=== PATIENT | male | born 1935 | race Caucasian/White ===

== ENCOUNTER 2017-08-22 11:25 | Emergency (ER) | payer OTHER ==
[~2017-08-22] VITALS: Ht 170.2 cm; Wt 98.4 kg
[~2017-08-22 11:25] MED LIST: ALBU.083IS IH; ALBU90OI6 INH; AMOX875 PO; ASPI81EC PO; ATEN25 PO; ATOR10 PO; CAND32 PO; FISH OIL 1,4001 EACH PO; FLUSAL1005 IH; FLUT.05NI; FURO20; FURO20 PO; OMEP20ER PO; SIME80CH PO; TAMS.4ER PO; WARF5 PO; WARF7.5 PO
[2017-08-22] MEDS ORDERED: TORSE20 PO (14:58)
[2017-08-22] MEDS ORDERED: Cipro250 MG PO (15:53)
[2018-02-28] MEDS ORDERED: ZADITOR5 ML BOTHEYES (11:50)
[2018-02-28] MEDS ORDERED: Polytrim Eye Dr10 ML BOTHEYES (11:50)
== END 2017-08-22 16:03 | disposition home or self-care (01) ==
LOC: ER 11:25
DX: N41.9 Inflammatory disease of prostate, unspecified (principal); I10 Essential (primary) hypertension; Z88.0 Allergy status to penicillin; Z79.899 Other long term (current) drug therapy; Z79.01 Long term (current) use of anticoagulants
CPT/HCPCS: 99282

== ENCOUNTER 2017-09-20 11:35 | Inpatient (IN) | payer OTHER, SELFPAY ==
[~2017-09-20] VITALS: Ht 170.2 cm; Wt 102.5 kg
[~2017-09-20 11:35] MED LIST changes: +Cipro250 MG PO; +TORSE20 PO
[2017-09-20 12:00] LABS: Calcium, Ionized (POC) 1.18 mmol/L (1.10-1.46); Chloride (POC) 96 mmol/L (98-108); Creatinine (POC) 0.9 mg/dL (0.8-1.3); Glucose (ISTAT POC) 218 mg/dL (70-99); Hemoglobin (POC) 15.3 g/dL (13.5-17.5); Potassium (POC) 4.2 mmol/L (3.5-5.5); Sodium (POC) 139 mmol/L (135-148); Total CO2 (POC) 31 mmol/L (21-32)
[2017-09-20 12:11] LABS: Hemoglobin 15.5 g/dL (13.5-17.5); Mean Corpuscular HGB Conc 33.7 g/dL (31.5-36.5); Mean Corpuscular Volume 89 fL (80-100); Mean Platelet Volume 9.4 fL (9.1-12.4); Platelet Count 146 K/mm3 (150-400); RDW Standard Deviation 42.1 fL (35.1-46.3); Red Blood Cell Count 5.17 M/mm3 (4.30-5.90); White Blood Cell Count 6.18 K/mm3 (4.00-11.30)
[2017-09-20 12:29] LABS: Alanine Aminotransfer (ALT/SGP 41 U/L (12-78); Albumin, Blood 3.8 g/dL (3.4-5.0); Albumin/Globulin Ratio 1.1 (0.8-1.8); Alk Phos 107 U/L (50-136); Anion Gap 6 mmol/L (6-16); Aspartate Aminotrans (AST/SGOT 48 U/L (12-37); Bilirubin, Total 0.7 mg/dL (0.1-1.0); Blood Urea Nitrogen 18 mg/dL (8-24); Bun/Creatinine Ratio 19.8 (12.0-20.0); CHOL/HDL RATIO 4.7; CO2, Blood 31 mmol/L (21-32); Calcium, Blood 8.8 mg/dL (8.5-10.1); Chloride, Blood 101 mmol/L (98-108); Cholesterol 205 mg/dL (50-200); Creatinine, Blood 0.91 mg/dL (0.60-1.20); Globulin, Blood 3.5 g/dL (2.2-4.0); Glomerular Filtration Rate >60 (60-); Glucose, Blood 210 mg/dL (70-99); HDL Cholesterol 44 mg/dL (>39); LDL/HDL RATIO 2.9; Low Density Lipoprotein Chol 127 mg/dL (0-110); Magnesium, Blood 2.1 mg/dL (1.6-2.4); Potassium, Blood 4.2 mmol/L (3.5-5.5); Sodium, Blood 138 mmol/L (136-145); Total Protein, Blood 7.3 g/dL (6.4-8.2); Triglycerides 172 mg/dL (30-160); Very Low Density Lipoprot Chol 34 mg/dL (6-32)
[2017-09-20 12:59] LABS: International Normalized Ratio 3.89; Prothrombin Time Results 42.2 Sec (9.7-11.5)
[2018-02-28] MEDS ORDERED: ZADITOR5 ML BOTHEYES (11:50)
[2018-02-28] MEDS ORDERED: Polytrim Eye Dr10 ML BOTHEYES (11:50)
== END 2017-09-20 15:38 | disposition short-term general hospital (02) | DRG 281 ==
LOC: ER 11:35 → ICUW 12:14
PROVIDERS: Emergency Medicine
PROC: 4A023N7 Measurement of Cardiac Sampling and Pressure, Left Heart, Percutaneous Approach (ICD-10-PCS; principal; 2017-09-20)
PROC: B2161ZZ Fluoroscopy of Right and Left Heart using Low Osmolar Contrast (ICD-10-PCS; 2017-09-20)
PROC: B2111ZZ Fluoroscopy of Multiple Coronary Arteries using Low Osmolar Contrast (ICD-10-PCS; 2017-09-20)
DX: I25.110 Atherosclerotic heart disease of native coronary artery with unstable angina pectoris (principal); I21.09 ST elevation (STEMI) myocardial infarction involving other coronary artery of anterior wall; I48.91 Unspecified atrial fibrillation; C80.1 Malignant (primary) neoplasm, unspecified; Z79.01 Long term (current) use of anticoagulants; I10 Essential (primary) hypertension; Z88.0 Allergy status to penicillin
CPT/HCPCS: 36415; 71045; 80047; 80053; 80061; 83735; 84484; 85014; 85027; 85347; 85610; 85730; 86850; 86900; 86901; 92978; 93005; 93010; 93458; 96360; 99152; 99153; 99285; C1753; C1769; C1887; C1894; J0282; J1644; J2250; J3010; J7030; Q9967

== ENCOUNTER 2018-01-09 19:11 | Inpatient (IN) | payer OTHER, SELFPAY ==
[~2018-01-09] VITALS: Ht 172.7 cm; Wt 98.0 kg
[2018-01-09 19:57] LABS: Hematocrit 44.2 % (37.0-53.0); Hemoglobin 14.8 g/dL (13.5-17.5); Mean Corpuscular HGB Conc 33.5 g/dL (31.5-36.5); Mean Corpuscular Volume 90 fL (80-100); Mean Platelet Volume 9.8 fL (9.1-12.4); Platelet Count 122 K/mm3 (150-400); RDW Coefficient Variation 13.1 % (11.7-14.2); RDW Standard Deviation 42.7 fL (35.1-46.3); Red Blood Cell Count 4.94 M/mm3 (4.30-5.90); White Blood Cell Count 7.37 K/mm3 (4.00-11.30)
[2018-01-09 20:08] LABS: International Normalized Ratio 1.13; Prothrombin Time Results 11.8 Sec (9.7-11.5)
[2018-01-09 20:22] LABS: Alanine Aminotransfer (ALT/SGP 32 U/L (12-78); Albumin, Blood 3.7 g/dL (3.4-5.0); Alk Phos 123 U/L (50-136); Anion Gap 9 mmol/L (6-16); Aspartate Aminotrans (AST/SGOT 23 U/L (12-37); Bilirubin, Total 1.2 mg/dL (0.1-1.0); Blood Urea Nitrogen 21 mg/dL (8-24); Bun/Creatinine Ratio 26.4 (12.0-20.0); CHOL/HDL RATIO 2.7; CO2, Blood 28 mmol/L (21-32); Calcium, Blood 9.1 mg/dL (8.5-10.1); Chloride, Blood 99 mmol/L (98-108); Cholesterol 133 mg/dL (50-200); Globulin, Blood 3.7 g/dL (2.2-4.0); Glomerular Filtration Rate >60 (60-); Glucose, Blood 121 mg/dL (70-99); HDL Cholesterol 50 mg/dL (>39); LDL/HDL RATIO 1.3; Low Density Lipoprotein Chol 67 mg/dL (0-110); Magnesium, Blood 1.9 mg/dL (1.6-2.4); Sodium, Blood 136 mmol/L (136-145); Total Protein, Blood 7.4 g/dL (6.4-8.2); Triglycerides 78 mg/dL (30-160); Troponin I 0.016 ng/mL (0.000-0.040); Very Low Density Lipoprot Chol 15 mg/dL (6-32)
[2018-01-09] MEDS ORDERED: TORSE20 PO (20:38)
[2018-01-09] MEDS ORDERED: CARV6.25 PO (20:38)
[2018-01-09] MEDS ORDERED: LOSA25 PO (20:38)
[2018-01-09] MEDS ORDERED: ELIQUIS5 MG PO (20:39)
[2018-01-09] MEDS ORDERED: TAMS.4ER PO (20:59)
[2018-01-09] MEDS ORDERED: Omeprazole20 M1 PO (20:59)
[2018-01-09] MEDS ORDERED: ATOR20 PO (20:59)
[2018-01-09] MEDS ORDERED: Advair Hfa 230-12 GM (21:00)
[2018-01-09] MEDS ORDERED: Fish Oil 10001000 MG GT (21:00)
[2018-01-09] MEDS ORDERED: Advair Hfa 230-12 GM INH (21:00)
[2018-01-10 04:50] LABS: BASOPHILS ABSOLUTE AUTO 0.01 K/mm3 (0.00-0.23); BASOPHILS PERCENT AUTO 0 % (0-2); EOSINOPHILS ABSOLUTE AUTO 0.04 K/mm3 (0.00-0.68); EOSINOPHILS PERCENT AUTO 1 % (0-6); Hemoglobin 13.4 g/dL (13.5-17.5); IMMATURE GRAN ABSOLUTE AUTO 0.03 K/mm3 (0.00-0.10); IMMATURE GRAN PERCENT AUTO 0 % (0-1); LYMPHOCYTES ABSOLUTE AUTO 0.67 K/mm3 (0.84-5.20); LYMPHOCYTES PERCENT AUTO 9 % (21-46); MONOCYTES ABSOLUTE AUTO 0.86 K/mm3 (0.16-1.47); MONOCYTES PERCENT AUTO 11 % (4-13); Mean Corpuscular HGB 30.7 pg (26.0-34.0); Mean Corpuscular HGB Conc 33.5 g/dL (31.5-36.5); Mean Corpuscular Volume 92 fL (80-100); Mean Platelet Volume 9.5 fL (9.1-12.4); NEUTROPHILS ABSOLUTE AUTO 6.11 K/mm3 (1.96-9.15); NEUTROPHILS PERCENT AUTO 79 % (41-73); Platelet Count 123 K/mm3 (150-400); RDW Coefficient Variation 13.1 % (11.7-14.2); RDW Standard Deviation 43.8 fL (35.1-46.3); Red Blood Cell Count 4.37 M/mm3 (4.30-5.90); White Blood Cell Count 7.72 K/mm3 (4.00-11.30)
[2018-01-10 05:12] LABS: Anion Gap 6 mmol/L (6-16); Blood Urea Nitrogen 17 mg/dL (8-24); CO2, Blood 30 mmol/L (21-32); CPK Creatine Kinase 35 U/L (39-308); Calcium, Blood 8.6 mg/dL (8.5-10.1); Chloride, Blood 104 mmol/L (98-108); Creatinine, Blood 0.77 mg/dL (0.60-1.20); Glomerular Filtration Rate >60 (60-); Glucose, Blood 121 mg/dL (70-99); Sodium, Blood 140 mmol/L (136-145); Troponin I 0.088 ng/mL (0.000-0.040)
[2018-01-10 12:48] LABS: Troponin I 0.068 ng/mL (0.000-0.040)
[2018-01-10 20:38] LABS: Troponin I 0.064 ng/mL (0.000-0.040)
[2018-01-11 04:15] LABS: BASOPHILS ABSOLUTE AUTO 0.01 K/mm3 (0.00-0.23); BASOPHILS PERCENT AUTO 0 % (0-2); EOSINOPHILS PERCENT AUTO 1 % (0-6); Hematocrit 39.4 % (37.0-53.0); Hemoglobin 13.3 g/dL (13.5-17.5); IMMATURE GRAN ABSOLUTE AUTO 0.01 K/mm3 (0.00-0.10); IMMATURE GRAN PERCENT AUTO 0 % (0-1); LYMPHOCYTES ABSOLUTE AUTO 0.69 K/mm3 (0.84-5.20); LYMPHOCYTES PERCENT AUTO 9 % (21-46); MONOCYTES PERCENT AUTO 13 % (4-13); Mean Corpuscular HGB 30.6 pg (26.0-34.0); Mean Corpuscular HGB Conc 33.8 g/dL (31.5-36.5); Mean Corpuscular Volume 91 fL (80-100); NEUTROPHILS ABSOLUTE AUTO 5.95 K/mm3 (1.96-9.15); NEUTROPHILS PERCENT AUTO 77 % (41-73); Platelet Count 132 K/mm3 (150-400); RDW Coefficient Variation 13.1 % (11.7-14.2); RDW Standard Deviation 43.7 fL (35.1-46.3); Red Blood Cell Count 4.35 M/mm3 (4.30-5.90); White Blood Cell Count 7.76 K/mm3 (4.00-11.30)
[2018-01-11 04:47] LABS: International Normalized Ratio 1.52
[2018-01-11 04:53] LABS: Alanine Aminotransfer (ALT/SGP 31 U/L (12-78); Albumin, Blood 3.1 g/dL (3.4-5.0); Albumin/Globulin Ratio 0.8 (0.8-1.8); Alk Phos 103 U/L (50-136); Anion Gap 8 mmol/L (6-16); Aspartate Aminotrans (AST/SGOT 22 U/L (12-37); Bilirubin, Total 1.3 mg/dL (0.1-1.0); Blood Urea Nitrogen 21 mg/dL (8-24); Bun/Creatinine Ratio 27.7 (12.0-20.0); CO2, Blood 30 mmol/L (21-32); Calcium, Blood 8.9 mg/dL (8.5-10.1); Chloride, Blood 102 mmol/L (98-108); Creatinine, Blood 0.76 mg/dL (0.60-1.20); Globulin, Blood 3.8 g/dL (2.2-4.0); Glomerular Filtration Rate >60 (60-); Glucose, Blood 116 mg/dL (70-99); Potassium, Blood 3.9 mmol/L (3.5-5.5); Sodium, Blood 140 mmol/L (136-145); Total Protein, Blood 6.9 g/dL (6.4-8.2)
[2018-01-12] MEDS ORDERED: ATOR80 PO (11:03)
[2018-01-12] MEDS ORDERED: CLOP75 PO (11:05)
[2018-01-12] MEDS ORDERED: FAMO20 PO (11:05)
[2018-01-12] MEDS ORDERED: ALBU3IS INH (11:05)
[2018-01-12] MEDS ORDERED: ASPI81CH PO (11:05)
== END 2018-01-12 12:17 | disposition home or self-care (01) | DRG 247 ==
LOC: ER 19:11 → MEDS 19:57 → ICUW 19:57 → MEDS 20:01 → ICUW 22:11 → MEDS 01-11 16:00
PROVIDERS: Internal Medicine; Internal Medicine Cardiovascular Disease
PROC: 4A023N7 Measurement of Cardiac Sampling and Pressure, Left Heart, Percutaneous Approach (ICD-10-PCS; principal; 2018-01-09)
PROC: 027034Z Dilation of Coronary Artery, One Artery with Drug-eluting Intraluminal Device, Percutaneous Approach (ICD-10-PCS; 2018-01-09)
PROC: B211YZZ Fluoroscopy of Multiple Coronary Arteries using Other Contrast (ICD-10-PCS; 2018-01-09)
DX: I21.3 ST elevation (STEMI) myocardial infarction of unspecified site (principal); J44.1 Chronic obstructive pulmonary disease with (acute) exacerbation; J44.0 Chronic obstructive pulmonary disease with (acute) lower respiratory infection; I50.42 Chronic combined systolic (congestive) and diastolic (congestive) heart failure; J20.9 Acute bronchitis, unspecified; I25.10 Atherosclerotic heart disease of native coronary artery without angina pectoris; I21.09 ST elevation (STEMI) myocardial infarction involving other coronary artery of anterior wall; I11.0 Hypertensive heart disease with heart failure; K21.9 Gastro-esophageal reflux disease without esophagitis
CPT/HCPCS: 36415; 71045; 80048; 80053; 80061; 82550; 83735; 84145; 84484; 85025; 85027; 85347; 85610; 85730; 86850; 86900; 86901; 93005; 93010; 93458; 94640; 94760; 96374; 99152; 99153; 99285; C1725; C1760; C1769; C1874; C1894; C8929; C9606; J0456; J1644; J2250; J2405; J3010; J3246; J7030; J7050; Q9957; Q9967

== ENCOUNTER 2018-10-11 11:04 | Emergency (ER) | payer OTHER ==
[~2018-10-11] VITALS: Ht 172.7 cm; Wt 97.5 kg
[~2018-10-11 11:04] MED LIST changes: +ALBU3IS INH; +ASPI81CH PO; +ATOR20 PO; +ATOR80 PO; +Advair Hfa 230-12 GM; +Advair Hfa 230-12 GM INH; +CARV6.25 PO; +CLOP75 PO; +ELIQUIS5 MG PO; +FAMO20 PO; +Fish Oil 10001000 MG GT; +LOSA25 PO; +Omeprazole20 M1 PO; +Polytrim Eye Dr10 ML BOTHEYES; +ZADITOR5 ML BOTHEYES
[2018-10-11 12:03] LABS: BASOPHILS ABSOLUTE AUTO 0.01 K/mm3 (0.00-0.23); BASOPHILS PERCENT AUTO 0 % (0-2); EOSINOPHILS ABSOLUTE AUTO 0.16 K/mm3 (0.00-0.68); EOSINOPHILS PERCENT AUTO 3 % (0-6); Hematocrit 43.9 % (37.0-53.0); Hemoglobin 14.5 g/dL (13.5-17.5); IMMATURE GRAN ABSOLUTE AUTO 0.02 K/mm3 (0.00-0.10); IMMATURE GRAN PERCENT AUTO 0 % (0-1); LYMPHOCYTES PERCENT AUTO 15 % (21-46); MONOCYTES ABSOLUTE AUTO 0.48 K/mm3 (0.16-1.47); MONOCYTES PERCENT AUTO 9 % (4-13); Mean Corpuscular HGB 30.1 pg (26.0-34.0); Mean Corpuscular Volume 91 fL (80-100); Mean Platelet Volume 10.1 fL (9.1-12.4); NEUTROPHILS ABSOLUTE AUTO 4.06 K/mm3 (1.96-9.15); NEUTROPHILS PERCENT AUTO 73 % (41-73); Platelet Count 129 K/mm3 (150-400); RDW Standard Deviation 43.8 fL (35.1-46.3); Red Blood Cell Count 4.81 M/mm3 (4.30-5.90); White Blood Cell Count 5.53 K/mm3 (4.00-11.30)
[2018-10-11 12:15] LABS: International Normalized Ratio 1.03; Prothrombin Time Results 10.9 Sec (9.7-11.5)
[2018-10-11 12:33] LABS: Alanine Aminotransfer (ALT/SGP 40 U/L (12-78); Albumin, Blood 3.7 g/dL (3.4-5.0); Albumin/Globulin Ratio 1.1 (0.8-1.8); Alk Phos 115 U/L (50-136); Anion Gap 7 mmol/L (6-16); Aspartate Aminotrans (AST/SGOT 22 U/L (12-37); Bilirubin, Total 0.8 mg/dL (0.1-1.0); Blood Urea Nitrogen 26 mg/dL (8-24); Bun/Creatinine Ratio 23.4 (12.0-20.0); CO2, Blood 30 mmol/L (21-32); Calcium, Blood 8.8 mg/dL (8.5-10.1); Chloride, Blood 104 mmol/L (98-108); Creatinine, Blood 1.11 mg/dL (0.60-1.20); Globulin, Blood 3.5 g/dL (2.2-4.0); Glomerular Filtration Rate >60 (60-); Glucose, Blood 103 mg/dL (70-99); Potassium, Blood 3.9 mmol/L (3.5-5.5); Sodium, Blood 141 mmol/L (136-145); Total Protein, Blood 7.2 g/dL (6.4-8.2)
[2018-10-11 12:35] LABS: Troponin I 0.042 ng/mL (0.000-0.040)
== END 2018-10-11 13:57 | disposition home or self-care (01) ==
LOC: ER 11:04
PROVIDERS: Physician Assistant
DX: R07.89 Other chest pain (principal); I48.91 Unspecified atrial fibrillation; I10 Essential (primary) hypertension; Z88.0 Allergy status to penicillin; Z79.899 Other long term (current) drug therapy; Z79.82 Long term (current) use of aspirin
CPT/HCPCS: 36415; 71046; 80053; 83880; 84484; 85025; 85610; 93005; 93010; 99285-25

== ENCOUNTER 2019-05-01 03:58 | Inpatient (IN) | payer OTHER ==
[~2019-05-01] VITALS: Ht 172.7 cm; Wt 98.5 kg
[~2019-05-01 03:58] MED LIST changes: +Bactrim Ds Tab1 EACH PO; +CEPH500 PO; +Flonase 0.05% N16 GM; +Isosorbide Mono30 MG PO; +METO25ER PO
[2019-05-01 05:25] LABS: Alanine Aminotransfer (ALT/SGP 31 U/L (12-78); Albumin, Blood 3.3 g/dL (3.4-5.0); Albumin/Globulin Ratio 0.9 (0.8-1.8); Alk Phos 111 U/L (50-136); Anion Gap 10 mmol/L (6-16); Aspartate Aminotrans (AST/SGOT 18 U/L (12-37); Bilirubin, Total 0.8 mg/dL (0.1-1.0); Blood Urea Nitrogen 27 mg/dL (8-24); Bun/Creatinine Ratio 22.9 (12.0-20.0); CO2, Blood 26 mmol/L (21-32); Calcium, Blood 8.4 mg/dL (8.5-10.1); Chloride, Blood 103 mmol/L (98-108); Creatinine, Blood 1.18 mg/dL (0.60-1.20); Globulin, Blood 3.5 g/dL (2.2-4.0); Glomerular Filtration Rate >60 (60-); Glucose, Blood 135 mg/dL (70-99); Potassium, Blood 3.5 mmol/L (3.5-5.5); Sodium, Blood 139 mmol/L (136-145); Total Protein, Blood 6.8 g/dL (6.4-8.2); Troponin I 0.069 ng/mL (0.000-0.040)
[2019-05-01 05:37] LABS: BASOPHILS ABSOLUTE AUTO 0.01 K/mm3 (0.00-0.23); BASOPHILS PERCENT AUTO 0 % (0-2); EOSINOPHILS ABSOLUTE AUTO 0.24 K/mm3 (0.00-0.68); EOSINOPHILS PERCENT AUTO 3 % (0-6); Hematocrit 37.7 % (37.0-53.0); Hemoglobin 12.5 g/dL (13.5-17.5); IMMATURE GRAN ABSOLUTE AUTO 0.03 K/mm3 (0.00-0.10); IMMATURE GRAN PERCENT AUTO 0 % (0-1); LYMPHOCYTES ABSOLUTE AUTO 0.43 K/mm3 (0.84-5.20); LYMPHOCYTES PERCENT AUTO 6 % (21-46); MONOCYTES ABSOLUTE AUTO 0.74 K/mm3 (0.16-1.47); MONOCYTES PERCENT AUTO 10 % (4-13); Mean Corpuscular HGB 29.2 pg (26.0-34.0); Mean Corpuscular HGB Conc 33.2 g/dL (31.5-36.5); Mean Corpuscular Volume 88 fL (80-100); NEUTROPHILS ABSOLUTE AUTO 6.33 K/mm3 (1.96-9.15); NEUTROPHILS PERCENT AUTO 81 % (41-73); Platelet Count 130 K/mm3 (150-400); RDW Coefficient Variation 15.4 % (11.7-14.2); RDW Standard Deviation 49.2 fL (35.1-46.3); Red Blood Cell Count 4.28 M/mm3 (4.30-5.90); White Blood Cell Count 7.78 K/mm3 (4.00-11.30)
[2019-05-01] MEDS ORDERED: OMEP20ER PO (10:17)
[2019-05-01 13:42] LABS: Troponin I 0.636 ng/mL (0.000-0.040)
[2019-05-01 16:18] LABS: Adenovirus Not Detected (NOT DETECT); Bordetella pertussis Not Detected (NOT DETECT); Chlamydophila pneumoniae Not Detected (NOT DETECT); Coronavirus 229E Not Detected (NOT DETECT); Coronavirus HKU1 Not Detected (NOT DETECT); Coronavirus NL63 Not Detected (NOT DETECT); Coronavirus OC43 Not Detected (NOT DETECT); Human Metapneumovirus Not Detected (NOT DETECT); Human Rhinovirus/Enterovirus Detected (NOT DETECT); Influenza A Not Detected (NOT DETECT); Influenza A/2009-H1 Not Detected (NOT DETECT); Influenza A/H1 Not Detected (NOT DETECT); Influenza A/H3 Not Detected (NOT DETECT); Influenza B Not Detected (NOT DETECT); Mycoplasma pneumoniae Not Detected (NOT DETECT); Parainfluenza Virus 1 Not Detected (NOT DETECT); Parainfluenza Virus 2 Not Detected (NOT DETECT); Parainfluenza Virus 3 Not Detected (NOT DETECT); Parainfluenza Virus 4 Not Detected (NOT DETECT); Respiratory Syncytial Virus Not Detected (NOT DETECT)
--- NOTE | 2019-05-01 17:01 | NUR ---
PT AOX4 AND COOPERATIVE OF CARE. PT HAD TWO BMs UPON ARRIVAL TO FLOOR. NOTED SECOND BM WAS DIARRHEA. NOTIFIED AND ORDER ENTERED FOR GI PANEL. PT HAS BEEN UP AND DOWN TO CHAIR NEXT TO BED AND HAS DONE WELL WITH SELF TRANSFER. PT HAS HAD PRESENT ALL DAY. PT REQUESTED COMPRESSION STOCKINGS AND DR OWENS APPROVED ORDER AND STOCKING WERE PLACED. PT HAS BEEN STAYING AT 3 L OF O2 AND HAS BEEN DOING WELL WHEEZES CONTINUE THROUGHOUT. WILL CONTINUE TO MONITOR.
[2019-05-01 21:27] LABS: Troponin I 0.536 ng/mL (0.000-0.040)
[2019-05-02 04:42] LABS: BASOPHILS PERCENT AUTO 0 % (0-2); EOSINOPHILS PERCENT AUTO 0 % (0-6); Hematocrit 36.3 % (37.0-53.0); IMMATURE GRAN ABSOLUTE AUTO 0.02 K/mm3 (0.00-0.10); IMMATURE GRAN PERCENT AUTO 0 % (0-1); LYMPHOCYTES PERCENT AUTO 2 % (21-46); MONOCYTES ABSOLUTE AUTO 0.17 K/mm3 (0.16-1.47); MONOCYTES PERCENT AUTO 3 % (4-13); Mean Corpuscular HGB 29.6 pg (26.0-34.0); Mean Corpuscular HGB Conc 33.1 g/dL (31.5-36.5); Mean Corpuscular Volume 89 fL (80-100); Mean Platelet Volume 10.5 fL (9.1-12.4); NEUTROPHILS ABSOLUTE AUTO 4.86 K/mm3 (1.96-9.15); NEUTROPHILS PERCENT AUTO 94 % (41-73); Platelet Count 149 K/mm3 (150-400); RDW Coefficient Variation 14.9 % (11.7-14.2); Red Blood Cell Count 4.06 M/mm3 (4.30-5.90); White Blood Cell Count 5.15 K/mm3 (4.00-11.30)
[2019-05-02 05:20] LABS: Alanine Aminotransfer (ALT/SGP 45 U/L (12-78); Albumin, Blood 3.2 g/dL (3.4-5.0); Albumin/Globulin Ratio 0.9 (0.8-1.8); Alk Phos 149 U/L (50-136); Anion Gap 10 mmol/L (6-16); Aspartate Aminotrans (AST/SGOT 29 U/L (12-37); Bilirubin, Total 0.7 mg/dL (0.1-1.0); Blood Urea Nitrogen 32 mg/dL (8-24); Bun/Creatinine Ratio 32.3 (12.0-20.0); CO2, Blood 26 mmol/L (21-32); Calcium, Blood 8.9 mg/dL (8.5-10.1); Chloride, Blood 101 mmol/L (98-108); Creatinine, Blood 0.99 mg/dL (0.60-1.20); Globulin, Blood 3.4 g/dL (2.2-4.0); Glomerular Filtration Rate >60 (60-); Glucose, Blood 281 mg/dL (70-99); Potassium, Blood 3.7 mmol/L (3.5-5.5); Sodium, Blood 137 mmol/L (136-145); Total Protein, Blood 6.6 g/dL (6.4-8.2)
--- NOTE | 2019-05-02 06:27 | NUR ---
SHIFT SUMMARY PT A/O SBA WHEN TRANSFERRING FROM BED TO CHAIR OR TO BSC. SLEPT ON AND OFF IN RECLINER T/O NIGHT. C/O SOME ANGINA AND REQUESTED HIS ISOSORBIDE ASKED DR GONZALEZ IF HE COULD HAVE IT EARLY PER PT'S SCHEDULE LIKE HE DOES AT HOME AND OKAYED IT. 3L O2 NC. TRUPTI HOSE OFF FOR THE NIGHT. CALL LIGHT IN REACH.
[2019-05-02 07:09] LABS: Adenovirus F 40/41 Not Detected (NOT DETECT); Astrovirus Not Detected (NOT DETECT); Campylobacter Sp Not Detected (NOT DETECT); Cryptosporidium Not Detected (NOT DETECT); Cyclospora Cayetanensis Not Detected (NOT DETECT); E. Coli O157 Not Detected (NOT DETECT); Entamoeba Histolytica Not Detected (NOT DETECT); Enteroaggregative E. coli-EAEC Not Detected (NOT DETECT); Enteropathogenic E. coli-EPEC Not Detected (NOT DETECT); Enterotoxigenic E. coli-ETEC Not Detected (NOT DETECT); Giardia Lamblia Not Detected (NOT DETECT); Norovirus GI/GII Not Detected (NOT DETECT); Plesiomonas Shigelloides Not Detected (NOT DETECT); Rotavirus A Not Detected (NOT DETECT); Salmonella Sp Not Detected (NOT DETECT); Sapovirus Not Detected (NOT DETECT); Shiga Toxin-prod E. coli-STEC Not Detected (NOT DETECT); Shigella/Enteroin E. coli-EIEC Not Detected (NOT DETECT); Vibrio Cholerae Not Detected (NOT DETECT); Vibrio Sp Not Detected (NOT DETECT); Yersinia Enterocolitica Not Detected (NOT DETECT)
--- NOTE | 2019-05-02 12:06 | NUR ---
Echocardiogram completed.
--- NOTE | 2019-05-02 17:34 | NUR ---
PT AOX4 AND COOPERATIVE OF CARE. PT STATES HE IS FEELING BETTER TODAY. PT PREFERS SITTING UP IN HIS RECLINER CHAIR AND STATES HIS BREATHING IS BETTER WHEN SITTING UPRIGHT. PT HAD SHOWER TODAY AND REQUESTED TO BE SET UP IN BATHROOM AND WANTED HIS TO HELP HIM. PT WAS THEN HELPED BACK TO HIS CHAIR USING A FRONT WHEEL WALKER. PT STANDS AND USES URININAL ON HIS OWN. PT CALLS APPROPRIATELY. WILL CONTINUE TO MONITOR.
[2019-05-03 03:59] LABS: BASOPHILS ABSOLUTE AUTO 0.01 K/mm3 (0.00-0.23); BASOPHILS PERCENT AUTO 0 % (0-2); EOSINOPHILS ABSOLUTE AUTO 0.02 K/mm3 (0.00-0.68); EOSINOPHILS PERCENT AUTO 0 % (0-6); Hematocrit 38.1 % (37.0-53.0); Hemoglobin 12.7 g/dL (13.5-17.5); IMMATURE GRAN ABSOLUTE AUTO 0.03 K/mm3 (0.00-0.10); IMMATURE GRAN PERCENT AUTO 0 % (0-1); LYMPHOCYTES ABSOLUTE AUTO 0.26 K/mm3 (0.84-5.20); LYMPHOCYTES PERCENT AUTO 3 % (21-46); MONOCYTES ABSOLUTE AUTO 0.69 K/mm3 (0.16-1.47); MONOCYTES PERCENT AUTO 7 % (4-13); Mean Corpuscular HGB 30.1 pg (26.0-34.0); Mean Corpuscular HGB Conc 33.3 g/dL (31.5-36.5); Mean Corpuscular Volume 90 fL (80-100); Mean Platelet Volume 10.1 fL (9.1-12.4); NEUTROPHILS ABSOLUTE AUTO 8.66 K/mm3 (1.96-9.15); NEUTROPHILS PERCENT AUTO 90 % (41-73); Platelet Count 173 K/mm3 (150-400); RDW Coefficient Variation 15.3 % (11.7-14.2); RDW Standard Deviation 51.1 fL (35.1-46.3); Red Blood Cell Count 4.22 M/mm3 (4.30-5.90); White Blood Cell Count 9.67 K/mm3 (4.00-11.30)
--- NOTE | 2019-05-03 05:16 | NUR ---
SHIFT SUMMARY: PT IS ALERT AND ORIENTED. PT IS CALM AND COOPERATIVE WITH CARE. PT CALLS APPROPRIATELY. PT IS A STANDBY ASSIST. PT REPORTS INTERMITTENT SOB, REQUESTED HIS NASAL SPRAY EARLY, GIVEN, O2 @ 2 L VIA NC. PT DENIES PAIN, NAUSEA, AND VOMITING. PT REPORTS THAT HE TAKES ISOSORBIDE @ 0500, GIVEN EARLY. PT SLEPT INTERMITTENTLY THROUGHOUT THE NIGHT. POSSIBLE DISCHARGE TODAY. NO ACUTE CHANGES OR COMPLICATIONS. WILL CONTINUE TO MONITOR.
--- NOTE | 2019-05-03 16:56 | NUR ---
SHIFT SUMMARY NO ACUTE CHANGES. PATIENT DENIES PAIN, NAUSEA, AND SHORTNESS OF BREATH. PATIENT UP INDEPENDENT TO BSC AND SBA IN THE ROOM. PATIENT STATES HE IS FEELING BETTER. AT BEDSIDE. CALL LIGHT IN REACH.
--- NOTE | 2019-05-04 06:34 | NUR ---
[place] but a+o, great database management system specialist, marquise hose removed, used urinal on own, called after use, callight in reach, saline locked, room air for majority of shift, took nc off and replaced as he wanted/felt appropriate
--- NOTE | 2019-05-04 16:35 | NUR ---
SHIFT SUMMARY NO ACUTE CHANGES. PATIENT DENIES PAIN, NAUSEA, AND SHORTNESS OF BREATH. PATIENT ONLY WEARING 2L NC WITH ACTIVITY, OTHERWISE ON ROOM AIR. PATIENT UP TO BSC INDEPENDENTLY. AT BEDSIDE. POSSIBLE DISCHARGE TOMORROW. CALL LIGHT IN REACH.
--- NOTE | 2019-05-04 23:03 | NUR ---
requested increase in morning medication from 60 to the 90 pt states he takes at home, hospitalist declined to change another dr's orders and encouraged the pt to discuss it with his assigned caregiver during the day
[2019-05-05 05:44] LABS: Anion Gap 7 mmol/L (6-16); Blood Urea Nitrogen 38 mg/dL (8-24); Bun/Creatinine Ratio 47.7 (12.0-20.0); CO2, Blood 31 mmol/L (21-32); Chloride, Blood 104 mmol/L (98-108); Glomerular Filtration Rate >60 (60-); Glucose, Blood 156 mg/dL (70-99); Potassium, Blood 3.6 mmol/L (3.5-5.5); Sodium, Blood 142 mmol/L (136-145)
--- NOTE | 2019-05-05 06:25 | NUR ---
a+o, platinum, saline locked, rm air, slept in [facility] again last night, will share bsr with pt and day staff
--- NOTE | 2019-05-05 18:01 | NUR ---
SHIFT SUMMARY. A&OX4, INDEPENDENT IN ROOM, PT IS AWARE OF LIMIATIONS, NO SAFETY CONCERNS. PT DENIES PAIN, N/V. GOOD MEAL INTAKE. PT REPORTS MILD SOB WITH EXERTION. NO NEW PROBLEMS OR CONCERNS.
[2019-05-06 05:22] LABS: Albumin, Blood 3.6 g/dL (3.4-5.0); Anion Gap 7 mmol/L (6-16); Blood Urea Nitrogen 39 mg/dL (8-24); CO2, Blood 30 mmol/L (21-32); Calcium, Blood 9.3 mg/dL (8.5-10.1); Chloride, Blood 104 mmol/L (98-108); Creatinine, Blood 0.87 mg/dL (0.60-1.20); Glomerular Filtration Rate >60 (60-); Glucose, Blood 152 mg/dL (70-99); Phosphorus, Blood 3.7 mg/dL (2.5-4.9); Potassium, Blood 3.9 mmol/L (3.5-5.5); Sodium, Blood 141 mmol/L (136-145)
--- NOTE | 2019-05-06 06:37 | NUR ---
a+o, call light in reach, night in chair, [place], bsr will be shared with day staff and pt, rm air, continues to improve
[2019-05-06] MEDS ORDERED: PRED5 (13:28)
--- NOTE | 2019-05-06 14:54 | NUR ---
1452 PT DISCHARGED HOME VIA PERSONAL VEHICLE ACOMPANIED AND DRIVEN BY AND DAUGHTER. PT ESCORTED TO FACILITY ENTRANCE VIA W/C BY LEATHER STAMPER. IV REMOVED. D/C PAPERWORK REVIEWED WITH PT AND COPY PROVIDED, PT AND FAMILY ACKNOWLEDGED UNDERSTANDING. FLUTTER VALVE SUPPLIED TO PT PER DR. GALVEZ REQUEST. NO NEW CHANGES OR CONCERNS. LUNGS CLEAR THIS AM, SIGNIFICANTLY IMPROVED COMPARED TO YESTERDAY.
--- NOTE | 2019-05-06 15:05 | NUR ---
PREDNISONE CALLED IN TO THE PHARMACIST AT [facility].
== END 2019-05-06 14:53 | disposition home or self-care (01) | DRG 280 ==
LOC: ER 03:58 → MEDS 06:36 → ENPENDDIS 05-06 11:06 → MEDS 05-06 14:53
PROVIDERS: Emergency Medicine; Internal Medicine; ADMIT Internal Medicine
DX: I11.0 Hypertensive heart disease with heart failure (principal); J96.01 Acute respiratory failure with hypoxia; I21.A1 Myocardial infarction type 2; J44.1 Chronic obstructive pulmonary disease with (acute) exacerbation; L03.116 Cellulitis of left lower limb; I25.10 Atherosclerotic heart disease of native coronary artery without angina pectoris; I50.43 Acute on chronic combined systolic (congestive) and diastolic (congestive) heart failure; I25.5 Ischemic cardiomyopathy; I48.2 Chronic atrial fibrillation; E78.5 Hyperlipidemia, unspecified; Z79.82 Long term (current) use of aspirin; Z79.02 Long term (current) use of antithrombotics/antiplatelets; I87.8 Other specified disorders of veins; I27.20 Pulmonary hypertension, unspecified
CPT/HCPCS: 0097U; 0099U; 36415; 71045; 71046; 80048; 80053; 80069; 82550; 82803; 82947; 83605; 83880; 84145; 84484; 85025; 93005; 93010; 93308; 93321; 93971; 94640; 94644; 94664; 94760; 96361; 96365; 96375; 97162; 97166; 97530; 98960; 99284-25; 99285-25; J0696; J1940; J1956; J2930; J7030; J7512

== ENCOUNTER → 2019-08-10 | Outpatient (CLI) | payer OTHER ==
[~2019-08-10] MED LIST changes: +PRED5
== END | disposition home or self-care (01) ==
LOC: PLD 07:35 → LAB SHORT 07:35
DX: D04.39 Carcinoma in situ of skin of other parts of face (principal)
CPT/HCPCS: 88305

== ENCOUNTER → 2019-10-31 | Outpatient (CLI) | payer OTHER | END | disposition home or self-care (01) | LOC: LAB SHORT 15:01 → LAB 15:01 | DX: L57.0 Actinic keratosis (principal) | CPT/HCPCS: 87070; 87205; 88305 ==

== ENCOUNTER → 2019-12-19 | Outpatient (CLI) | payer OTHER | END | disposition home or self-care (01) | LOC: LAB SHORT 18:39 → LAB 18:39 | DX: L08.0 Pyoderma (principal) | CPT/HCPCS: 87070; 87205 ==

== ENCOUNTER → 2020-07-30 | Outpatient (CLI) | payer OTHER | END | disposition home or self-care (01) | LOC: LAB 11:30 | DX: L03.116 Cellulitis of left lower limb (principal) | CPT/HCPCS: 87070; 87106; 87205 ==

== ENCOUNTER → 2020-09-24 | Outpatient (CLI) | payer OTHER | END | disposition home or self-care (01) | LOC: PLD 10:20 → LAB SHORT 10:20 | DX: L03.116 Cellulitis of left lower limb (principal) | CPT/HCPCS: 87070; 87077; 87186; 87205 ==

== ENCOUNTER → 2020-10-29 | Outpatient (CLI) | payer OTHER | END | disposition home or self-care (01) | LOC: LAB 11:00 → LAB SHORT 11:00 | DX: L03.116 Cellulitis of left lower limb (principal) | CPT/HCPCS: 87070; 87205 ==

== ENCOUNTER → 2021-06-26 | Outpatient (CLI) | payer OTHER | END | disposition home or self-care (01) | LOC: LAB 14:42 → LAB SHORT 14:42 | DX: L03.116 Cellulitis of left lower limb (principal) | CPT/HCPCS: 87070; 87205 ==

== ENCOUNTER 2021-07-25 17:07 | Inpatient (IN) | payer OTHER ==
[~2021-07-25] VITALS: Ht 170.2 cm; Wt 65.6 kg
[~2021-07-25 17:07] MED LIST changes: -ALBU3IS INH; -ASPI81CH PO; -ATOR80 PO; -Advair Hfa 230-12 GM INH; -Flonase 0.05% N16 GM; -Isosorbide Mono30 MG PO; -METO25ER PO
[2021-07-25 18:01] LABS: Source, Urine Clean Catch
[2021-07-25 18:04] LABS: Appearance, Urine Clear (Clear); Bilirubin, Urine Neg (Neg); Blood, Urine 5+ (Neg); Color, Urine Yellow (P-Yellow); Glucose Qualitative, Urine Neg (Neg); Ketones, Urine Neg (Neg); Leukocyte Esterase, Urine Neg (Neg); Nitrite, Urine Neg (Neg); Protein, Urine Neg (Neg); Urobilinogen, Urine NORM (Normal)
[2021-07-25 18:12] LABS: Bacteria Rare /hpf; Red Blood Cells, Urine 0-2 /hpf (0-2); Squamous Epithelial Cells Few /hpf (Few); White Blood Cells, Urine 0-2 /hpf (0-5)
[2021-07-25 18:12] LABS: BASOPHILS ABSOLUTE AUTO 0.02 K/mm3 (0.00-0.23); BASOPHILS PERCENT AUTO 0 % (0-2); EOSINOPHILS ABSOLUTE AUTO 0.26 K/mm3 (0.00-0.68); EOSINOPHILS PERCENT AUTO 3 % (0-6); Hematocrit 38.6 % (37.0-53.0); IMMATURE GRAN ABSOLUTE AUTO 0.04 K/mm3 (0.00-0.10); IMMATURE GRAN PERCENT AUTO 0 % (0-1); LYMPHOCYTES ABSOLUTE AUTO 0.83 K/mm3 (0.84-5.20); LYMPHOCYTES PERCENT AUTO 8 % (21-46); MONOCYTES ABSOLUTE AUTO 0.79 K/mm3 (0.16-1.47); MONOCYTES PERCENT AUTO 8 % (4-13); Mean Corpuscular HGB 29.7 pg (26.0-34.0); Mean Corpuscular HGB Conc 33.7 g/dL (31.5-36.5); Mean Corpuscular Volume 88 fL (80-100); NEUTROPHILS ABSOLUTE AUTO 8.01 K/mm3 (1.96-9.15); NEUTROPHILS PERCENT AUTO 81 % (41-73); RDW Coefficient Variation 14.3 % (11.7-14.2); RDW Standard Deviation 46.3 fL (35.1-46.3); Red Blood Cell Count 4.37 M/mm3 (4.30-5.90); White Blood Cell Count 9.95 K/mm3 (4.00-11.30)
[2021-07-25 18:15] LABS: Platelet Count 212 K/mm3 (150-400)
[2021-07-25 18:23] LABS: Base Excess Venous -9.4 mmol/L; Bicarbonate Venous 16.7 mmol/L (24.0-30.0); PCO2 Venous 39.3 mmHg (38-42); PO2 Venous 33.7 mmHg (38-42)
[2021-07-25 18:23] LABS: International Normalized Ratio 1.23; Prothrombin Time Results 12.7 Sec (9.7-11.5)
[2021-07-25 18:24] LABS: pH Blood Venous 7.26 (7.34-7.37)
[2021-07-25 18:31] LABS: Albumin/Globulin Ratio 0.4 (0.8-1.8); Bilirubin, Total 0.7 mg/dL (0.1-1.0); Calcium, Blood 8.7 mg/dL (8.5-10.1); Creatinine, Blood 3.58 mg/dL (0.60-1.20); Globulin, Blood 5.4 g/dL (2.2-4.0); Potassium, Blood 4.7 mmol/L (3.5-5.5); Total Protein, Blood 7.4 g/dL (6.4-8.2); Troponin I 0.044 ng/mL (0.000-0.040)
[2021-07-25 19:08] LABS: Influenza A, PCR NEGATIVE (NEGATIVE); Influenza B, PCR NEGATIVE (NEGATIVE); Resp Syncytial Virus, PCR NEGATIVE (NEGATIVE); SARS-Cov-2 (COVID-19) PCR, MMC NEGATIVE (NEGATIVE)
--- NOTE | 2021-07-25 22:24 | NUR ---
ADMISSION; PATIENT IS RECIEVED FROM ER, VERY [place] BUT A&OX3. DOES NOT KLNOW ALL MEDICATIONS AND DOSES, UNABLE TO COMPLETE MED REC. HR IS ELEVATED AT 115, ARTIFACT OBSERVED, RYTHM UN NON AT THIS TIME. PATIENT IS ORIENTED TO THE ROOM AND CALL CLARKE. BED ALARM IS ON.
[2021-07-26 05:16] LABS: BASOPHILS PERCENT AUTO 0 % (0-2); EOSINOPHILS PERCENT AUTO 8 % (0-6); Hematocrit 33.4 % (37.0-53.0); Hemoglobin 11.1 g/dL (13.5-17.5); IMMATURE GRAN ABSOLUTE AUTO 0.03 K/mm3 (0.00-0.10); IMMATURE GRAN PERCENT AUTO 0 % (0-1); LYMPHOCYTES ABSOLUTE AUTO 0.67 K/mm3 (0.84-5.20); LYMPHOCYTES PERCENT AUTO 9 % (21-46); MONOCYTES ABSOLUTE AUTO 0.66 K/mm3 (0.16-1.47); MONOCYTES PERCENT AUTO 9 % (4-13); Mean Corpuscular HGB 29.8 pg (26.0-34.0); Mean Corpuscular HGB Conc 33.2 g/dL (31.5-36.5); Mean Corpuscular Volume 90 fL (80-100); NEUTROPHILS ABSOLUTE AUTO 5.66 K/mm3 (1.96-9.15); NEUTROPHILS PERCENT AUTO 74 % (41-73); RDW Coefficient Variation 14.5 % (11.7-14.2); RDW Standard Deviation 47.1 fL (35.1-46.3); Red Blood Cell Count 3.73 M/mm3 (4.30-5.90); White Blood Cell Count 7.62 K/mm3 (4.00-11.30)
[2021-07-26 05:55] LABS: Albumin, Blood 1.7 g/dL (3.4-5.0); Anion Gap 10 mmol/L (6-16); Blood Urea Nitrogen 91 mg/dL (8-24); CO2, Blood 18 mmol/L (21-32); Calcium, Blood 8.4 mg/dL (8.5-10.1); Chloride, Blood 119 mmol/L (98-108); Creatinine, Blood 1.98 mg/dL (0.60-1.20); Glomerular Filtration Rate 32 (60-); Glucose, Blood 148 mg/dL (70-99); Magnesium, Blood 1.9 mg/dL (1.6-2.4); Phosphorus, Blood 4.2 mg/dL (2.5-4.9); Potassium, Blood 3.7 mmol/L (3.5-5.5); Sodium, Blood 147 mmol/L (136-145)
[2021-07-26 06:18] LABS: Platelet Count 192 K/mm3 (150-400)
--- NOTE | 2021-07-26 07:30 | NUR ---
SHIFT SUMMARY: PATIENT REMAINS A&O TO SELF, PLACE, TIME AND SITUATION BUT RAMBLES DURING HEALTH HX AND MED REC. GRAND DAUGHTER REPORTS NOT HELPING WITH MEDS. ONLY HELPS WITH BATHING AND ADL'S. PATIENT REPORTS NOT BEING ABLE TO AMBULATE FOR OVER 2 WEEKS AT THIS POINT. STAGE II ON COCCYX AND BILAT BUTTOCKS, MEPILEX WAS APPLIED AND PHOTO'S TAKEN. BILAT SHINS ARE ALMOST BLACK IN COLOR, PULSES ARE FAINT. SMALL OPEN AREA ON BACK OF LEFT CALF. NEW SHAWANDA WRAPS WERE APPLIED. MEDS WILL HAVE TO BE RECONCILED WITH PHARMACY, THIS WAS RELAYED IN REPORT. BED ALARM IS ON FOR SAFETY.
[2021-07-26 12:40] LABS: CHOL/HDL RATIO 2.2; Cholesterol 71 mg/dL (50-200); HDL Cholesterol 32 mg/dL (>39); LDL/HDL RATIO 0.5; Low Density Lipoprotein Chol 17 mg/dL (0-110); Sodium, Blood 145 mmol/L (136-145); Triglycerides 109 mg/dL (30-160); Very Low Density Lipoprot Chol 21 mg/dL (6-32)
--- NOTE | 2021-07-26 16:56 | NUR ---
SHIFT SUMMARY PATIENT IS ALERT AND ORIENTED X3. PATIENT IS HARD OF HEARING. PATIENT HAS BILATERAL BLACK SHINS AND LOWER EXTREMITIES WITH WEAK PULSES. PATIENT HAS A SKIN WOUND ON SACRUM WHICH WAS JUST REPLACED WITH MEPLEX DRESSING. DR REQUESTED THAT TAX COLLECTOR NOT REWRAP LEGS AND REWRAP AFTER DR SEES THEM TOMORROW MORNING. PICTURES IN FILE OF LEGS AND WOUNDS. NO ACUTE EVENTS THIS SHIFT. VITAL SIGNS REVIEWED. WILL CONTINUE TO MONTITOR UNTIL SHIFT CHANGE.
--- NOTE | 2021-07-27 04:40 | NUR ---
SHIFT SUMMARY PT IS A&0X3.FULL CODE STATUS.HARD OF HEARING. EDGAR REMAINS PATENT.NO NEW CONCERNS DURING THIS SHIFT.
[2021-07-27 06:22] LABS: Albumin, Blood 1.7 g/dL (3.4-5.0); Anion Gap 8 mmol/L (6-16); Blood Urea Nitrogen 41 mg/dL (8-24); Bun/Creatinine Ratio 40.2 (12.0-20.0); CO2, Blood 26 mmol/L (21-32); Calcium, Blood 8.2 mg/dL (8.5-10.1); Chloride, Blood 110 mmol/L (98-108); Creatinine, Blood 1.02 mg/dL (0.60-1.20); Glomerular Filtration Rate >60 (60-); Glucose, Blood 138 mg/dL (70-99); Magnesium, Blood 1.3 mg/dL (1.6-2.4); Phosphorus, Blood 2.1 mg/dL (2.5-4.9); Potassium, Blood 3.4 mmol/L (3.5-5.5); Sodium, Blood 144 mmol/L (136-145)
[2021-07-27 06:28] LABS: BASOPHILS ABSOLUTE AUTO 0.02 K/mm3 (0.00-0.23); BASOPHILS PERCENT AUTO 0 % (0-2); EOSINOPHILS ABSOLUTE AUTO 0.86 K/mm3 (0.00-0.68); EOSINOPHILS PERCENT AUTO 11 % (0-6); Hematocrit 37.5 % (37.0-53.0); Hemoglobin 12.5 g/dL (13.5-17.5); IMMATURE GRAN ABSOLUTE AUTO 0.04 K/mm3 (0.00-0.10); IMMATURE GRAN PERCENT AUTO 1 % (0-1); LYMPHOCYTES ABSOLUTE AUTO 0.82 K/mm3 (0.84-5.20); LYMPHOCYTES PERCENT AUTO 10 % (21-46); MONOCYTES ABSOLUTE AUTO 0.71 K/mm3 (0.16-1.47); MONOCYTES PERCENT AUTO 9 % (4-13); Mean Corpuscular HGB 29.2 pg (26.0-34.0); Mean Corpuscular HGB Conc 33.3 g/dL (31.5-36.5); Mean Corpuscular Volume 88 fL (80-100); NEUTROPHILS ABSOLUTE AUTO 5.74 K/mm3 (1.96-9.15); NEUTROPHILS PERCENT AUTO 70 % (41-73); RDW Coefficient Variation 14.4 % (11.7-14.2); RDW Standard Deviation 46.2 fL (35.1-46.3); Red Blood Cell Count 4.28 M/mm3 (4.30-5.90); White Blood Cell Count 8.19 K/mm3 (4.00-11.30)
[2021-07-27 06:38] LABS: Platelet Count 198 K/mm3 (150-400)
--- NOTE | 2021-07-27 14:39 | NUR ---
WOUND CARE PT HAS MEDIUM SIZE BREAK DOWN OF SKIN ON SACRUM AND IN HIS GLUTEAL FOLDS. BARRIER CREAM APPLIED GENEROUSLY. BLE IS DARK AND HAS VERY POOR CIRCULATION. HE HAS WOUNDS ON THE POSTERIOR OF HIS LEFT CALF. THOSE WERE SPRAYED WITH WOUND SPRAY CLEANED OF DRIED BLOOD AND COVERED INDIVIDUALLY WITH A MEPELEX. HIS LEFT HEEL IS ALSO COVERED WITH A HEEL PROTECTOR. WILL CONTINUE TO ADRERSS WOUND ON SACRUM WITH BRIEF CHANGES.
--- NOTE | 2021-07-27 17:26 | NUR ---
SHIFT SUMMARY PT HAS BEEN AXO 2-3 WITH PERIODS OF CONFUSION AND ANGRY OUTBURSTS. WOUNDS ON BOTTOM AND ON BLE WERE DRESSED (SEE WOUND CARE NOTE) AND PT WAS GIVEN A BED BATH. PTS FAMILY HAD A MEETING WITH PALLIATIVE CARE TODAY AND DECIDED THAT THE BEST OPTION WOULD BE TO TAKE THE PT HOME ON HOSPICE ON THURSDAY. WILL CONTINUE TO MONITOR.
--- NOTE | 2021-07-27 18:07 | NUR ---
MET TODAY WITH PT'S , DAUGHTER IN LAW, AND PATIENT. PT IS INTERESTED IN HOSPICE, AND FAMILY IS ALSO. THEIR BIGGEST OBSTACLE AT THIS POINT IS CAREGIVING, WHICH MAY ULTIMATELY CAUSE THEM TO CHOOSE ANOTHER ROUTE, LIKE ASSISTED LIVING WITH HOSPICE IN FACILITY INSTEAD OF HOME. THEY ARE PLANNING TO TALK TONIGHT A FAMILY, AND WE'LL MEET AGAIN TOMORROW DURING VISITING HOURS; POSSIBLY CHANGE PT TO COMFORT CARE PRIOR TO PT LEAVING THE HOSPITAL. WILL CLARIFY/FOLLOW UP ON THAT TOMORROW.
--- NOTE | 2021-07-28 04:03 | NUR ---
SCHIFT SUMMARY PT IS AOX2, FORGETFUL AT TIMES.VS REVIEWED . THE PLAN IS TO TAAKE THE PATIENT HOME ON HOSPICE THURSDAY. NO ACUTE CHANGE FOR THIS SHIFT . WILL CONTINUE TO MONITOR UNTIL DAY SHIFT ARRIVES.
[2021-07-28 05:18] LABS: Hematocrit 38.6 % (37.0-53.0); Hemoglobin 12.6 g/dL (13.5-17.5)
[2021-07-28 05:49] LABS: Albumin, Blood 1.7 g/dL (3.4-5.0); Anion Gap 8 mmol/L (6-16); Blood Urea Nitrogen 27 mg/dL (8-24); CO2, Blood 28 mmol/L (21-32); Calcium, Blood 8.1 mg/dL (8.5-10.1); Chloride, Blood 107 mmol/L (98-108); Creatinine, Blood 0.82 mg/dL (0.60-1.20); Glomerular Filtration Rate >60 (60-); Glucose, Blood 134 mg/dL (70-99); Magnesium, Blood 1.2 mg/dL (1.6-2.4); Phosphorus, Blood 2.3 mg/dL (2.5-4.9); Potassium, Blood 3.5 mmol/L (3.5-5.5); Sodium, Blood 143 mmol/L (136-145)
--- NOTE | 2021-07-28 16:27 | NUR ---
SHIFT SUMMARY PT RECIEVED A BED BATH TODAY AND HAD HIS WOUNDS REDRESSED. WE ARE STILL WORKING ON RESOLVING HIS MEDICATION ISSUES THE AUTHOR HAD TROUBLE GETTING AHOLD OF FAMILY MEMBERS AND THE PHARMACY THE PT USES IS CLOSED TODAY. PT IS MEANT TO BE DISCHARGING TOMORROW HOME ON HOSPICE PROVIDED THAT THE SUPPLIES ALL ARRIVE AT HIS HOME IN TIME. WILL CONTINUE TO MONITOR. PT REMAINS CONFUSED TODAY AND CONTINUES TO CALL OUT FOR HELP INSTEAD OF USING CALL LIGHT. WILL CONTINUE TO MONITOR.
--- NOTE | 2021-07-28 18:09 | NUR ---
PT'S FAMILY HAS CHOSEN [facility].
--- NOTE | 2021-07-29 04:24 | NUR ---
PT A/OX3-4. BEDBOUND. HERNÁNDEZ IN PLACE. LF. CALF HAS MEPELEX X2, SACRAL DECUB MEPELEX X1. PT HAS BLACK FEET, OP CONSULT IS IN PLACE ONCE HE DCs. PIV LF UA SL. DIET: RENAL (NO CHZ). HE WILL DC TO HOSPICE CARE.
[2021-07-29 05:25] LABS: Hematocrit 38.1 % (37.0-53.0); Hemoglobin 12.6 g/dL (13.5-17.5)
[2021-07-29 06:02] LABS: Albumin, Blood 1.7 g/dL (3.4-5.0); Anion Gap 7 mmol/L (6-16); Blood Urea Nitrogen 22 mg/dL (8-24); Bun/Creatinine Ratio 27.7 (12.0-20.0); CO2, Blood 29 mmol/L (21-32); Calcium, Blood 8.1 mg/dL (8.5-10.1); Chloride, Blood 103 mmol/L (98-108); Creatinine, Blood 0.79 mg/dL (0.60-1.20); Glomerular Filtration Rate >60 (60-); Glucose, Blood 131 mg/dL (70-99); Magnesium, Blood 1.5 mg/dL (1.6-2.4); Phosphorus, Blood 2.4 mg/dL (2.5-4.9); Potassium, Blood 3.9 mmol/L (3.5-5.5); Sodium, Blood 139 mmol/L (136-145)
--- NOTE | 2021-07-29 08:04 | NUR ---
ASSUMED CARE OF PT- BEDSIDE REPORT COMPLETED WITH NIGHT RN. PT IN BED CALL LIGHT IN REACH NO S&S OF DISTRESS NOTED PT ON TELE RUNNING AFIB AND TACHY. PT RUNNING IV MAG AT SHIFT CHANGE. PLAN IS FOR PT TO DISCHARGE TODAY HOME ON HOSPICE. IV K PHOS ORDERED WELL WILL CTM.
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
[2021-07-30 08:13] LABS: Albumin, Blood 1.7 g/dL (3.4-5.0); Anion Gap 6 mmol/L (6-16); Blood Urea Nitrogen 21 mg/dL (8-24); Bun/Creatinine Ratio 26.6 (12.0-20.0); CO2, Blood 29 mmol/L (21-32); Calcium, Blood 7.6 mg/dL (8.5-10.1); Chloride, Blood 102 mmol/L (98-108); Creatinine, Blood 0.79 mg/dL (0.60-1.20); Glomerular Filtration Rate >60 (60-); Glucose, Blood 118 mg/dL (70-99); Magnesium, Blood 1.5 mg/dL (1.6-2.4); Phosphorus, Blood 2.3 mg/dL (2.5-4.9); Potassium, Blood 3.6 mmol/L (3.5-5.5); Sodium, Blood 137 mmol/L (136-145)
--- NOTE | 2021-07-30 18:44 | NUR ---
SHIFT SUMMARY PT AA&OX 2 ONLY. EASILY REORIENTED TO TIME. FAMILY AT BEDSIDE VISITING. RECEIVED A POTASSIUM PHOSPHATE AND MAGNESIUM BOLUS IV TODAY AND WILL REDRAW LABS IN AM. VSS. NAD NOTED. NO C/O PAIN, SOB OR N/V VOICED AT THIS TIME. HAS DRESSING PLACED X3 TO LLE AND 1 DSG TO HEEL. REFUSED TO ELEVATE ON PILLOW. HAD A SMALL BM TODAY AND TOLERATED ALL MEALS AND ATE 90-100%.
[2021-07-31 04:49] LABS: Hemoglobin 12.7 g/dL (13.5-17.5)
--- NOTE | 2021-07-31 05:35 | NUR ---
SHIFT SUMMARY PT IS AA&2. HERNÁNDEZ STILL IN PLACE . NO COMPLAINTS OF PAIN. PT IS RESTING COMFORTABLY IN BED.ALL FALL PRECAUTION IN PLACE. NO NEW CONCERNS FOR THIS SHIFT. WILL CONTINUE TO MONITOR.
[2021-07-31 06:04] LABS: Albumin, Blood 1.6 g/dL (3.4-5.0); Anion Gap 7 mmol/L (6-16); Blood Urea Nitrogen 24 mg/dL (8-24); Bun/Creatinine Ratio 28.5 (12.0-20.0); CO2, Blood 30 mmol/L (21-32); Chloride, Blood 100 mmol/L (98-108); Creatinine, Blood 0.84 mg/dL (0.60-1.20); Glomerular Filtration Rate >60 (60-); Glucose, Blood 135 mg/dL (70-99); Magnesium, Blood 1.4 mg/dL (1.6-2.4); Phosphorus, Blood 2.2 mg/dL (2.5-4.9); Potassium, Blood 3.7 mmol/L (3.5-5.5); Sodium, Blood 137 mmol/L (136-145)
--- NOTE | 2021-07-31 06:46 | NUR ---
SHIFT SUMMARY PT IS AA&4.NPO WHEN HE STARTED DRINKING THE CONTRAST.NO ACUTE CHANGES DURING SHIFT. PT WENT FOR CAT SCAN ORDERED AND CAME BACK . PT IS RESTING COMFORTABLY AT THIS TIME. WILL CONTINUE TO MONITOR.
--- NOTE | 2021-07-31 18:29 | NUR ---
SHIFT SUMMARY PATIENT AA&OX2 AND EASILY REORIENTED TO YEAR. AWARE OF WHATS GOING ON AROUND HIM AND HE SIGNED PAPERWORK FOR HIS [id number] TO HELP GET HIS MEDICADE STARTED ON TODAY. TOLERATED ALL MEALS AND ADVANCED TO A REGULAR DIET TODAY. HAD A LARGE BM. VSS. NAD NOTED. HAS NO C/O PAIN, SOB, N/V OR DISCOMFORT VOICED AT THIS TIME. WILL CONTINUE TO MONITOR IN CARE.
--- NOTE | 2021-08-01 04:38 | NUR ---
SHIFT SUMMARY PT IS AA&0X2, FORGETFUL AT TIMES, BUT PT IS ABLE TO MAKE NEEDS KNOWN. NO NEW CONCERNS THROUGH THE NIGHT. PT IS RESTING COMFORTABLY AT THIS TIME. NO SIGN OF DISTRESS OBSERVED. ALL FALL PRECAUTION IN PLACE.WILL CONTINUE TO MONITOR.
[2021-08-01 05:42] LABS: Hematocrit 42.1 % (37.0-53.0); Hemoglobin 13.7 g/dL (13.5-17.5)
[2021-08-01 06:49] LABS: Albumin, Blood 1.7 g/dL (3.4-5.0); Anion Gap 10 mmol/L (6-16); Blood Urea Nitrogen 23 mg/dL (8-24); Bun/Creatinine Ratio 28.8 (12.0-20.0); CO2, Blood 29 mmol/L (21-32); Calcium, Blood 8.3 mg/dL (8.5-10.1); Chloride, Blood 99 mmol/L (98-108); Glomerular Filtration Rate >60 (60-); Glucose, Blood 135 mg/dL (70-99); Magnesium, Blood 1.6 mg/dL (1.6-2.4); Phosphorus, Blood 2.4 mg/dL (2.5-4.9); Potassium, Blood 3.9 mmol/L (3.5-5.5); Sodium, Blood 138 mmol/L (136-145)
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
--- NOTE | 2021-08-01 16:50 | NUR ---
PATIENT TRANSFER OT PCU FROM [facility] AT 1617. ABLE TO SWAP BEDS. ALERT AN ORIENTED X2-3. VERY SLEEPY. SNORING ON AND OFF. PERRLA. HARD OF HEARING. TELE SHOWING AFIB WITH HR 100-110'S. DENIES CHEST PAIN/PRESSURE. BP STABLE. ON ROOM AIR SATING MID 90'S. LUNGS SOUNDING CLEAR AND DIM IN BASES. HERNÁNDEZ CATH IN PLACE DRAINING CLEAR/MARLI URINE. ATTENDS IN PLACE WELL. BILATERAL LOWER EXTREMITIES, PUEPLE/BLUE IN COLOR STARTING RIGHT BELOW KNEE. LEFT LEG WOUNDS TO POSTERIOR CALF AND LEFT HEEL. MEPILEX IN PLACE. REVASC TO LEFT SIDE WITH RIGHT GROIN SITE. GROIN SITE SOFT, NONTENDER. NO SIGNS OF BLEEDING OR HEMATOMA. DRESSING CLEAN AND INTACT. POST OP VITAL SIGNS IN PROGRESS. LAYING FLAT IN BED. RIGHT PEDAL AND TIBIAL PULSE FOUND VIA DOPPLE. UNABLE TO FIND LEFT PEDAL AND TIBIAL PULSE WITH DOPPLE. CALL PLACED TO JUAN ANTONIO HODGES FROM [facility] WHO CONFIRMED ABSCENCE OF LEFT PEDAL/TIBIAL PULSE IN [facility] WELL. CALL LIGHT IN REACH
--- NOTE | 2021-08-01 17:03 | NUR ---
SPOKE WITH DAUGHTER IN LAW ON PHONE AND PROVIDED UPDATE. PATIENT REMAINS STABLE. LAYING FLAT IN BED SLEEPING ON AND OFF.
--- NOTE | 2021-08-01 18:52 | NUR ---
SHIFT SUMMARY: NO ACUTE CHANGES. POST OP VITAL SIGNS STABLE AND STILL IN PROGRESS. LAYING FLAT AT THIS TIME. RIGHT GROIN SITE WNL. SOFT AND NONTENDER. NO SIGNS OF BLEEDING OR HEMATOMA. K PHOS INFUSED. ABLE TO EAT DINNER AND DRINK FLUIDS. DAUGHTER IN LAW AND UPDATED. RIGHT PEDAL/TIBIAL PULSE FOUND BY DOPPLER. STILL NOT ABLE TO FIND PEDAL/TIBIAL PULSE WITH DOPPLER AT THIS TIME. CALL LIGHT IN REACH. SLEEPING AT THIS TIME.
[2021-08-02 04:21] LABS: Hematocrit 39.5 % (37.0-53.0); Hemoglobin 13.2 g/dL (13.5-17.5)
[2021-08-02 04:46] LABS: Albumin, Blood 1.5 g/dL (3.4-5.0); Anion Gap 6 mmol/L (6-16); Blood Urea Nitrogen 22 mg/dL (8-24); Bun/Creatinine Ratio 30.6 (12.0-20.0); CO2, Blood 30 mmol/L (21-32); Calcium, Blood 7.9 mg/dL (8.5-10.1); Chloride, Blood 102 mmol/L (98-108); Creatinine, Blood 0.72 mg/dL (0.60-1.20); Glomerular Filtration Rate >60 (60-); Glucose, Blood 129 mg/dL (70-99); Magnesium, Blood 1.3 mg/dL (1.6-2.4); Phosphorus, Blood 2.4 mg/dL (2.5-4.9); Potassium, Blood 3.9 mmol/L (3.5-5.5); Sodium, Blood 138 mmol/L (136-145)
--- NOTE | 2021-08-02 06:29 | NUR ---
SHIFT SUMMARY PT VERY AGITATED AND CONFUSED THROUGH THE NIGHT. ALERT TO SELF AND PLACE. NOT COOPERATIVE WITH PLAN OF CARE. EARNED HIMSELF A JEREMIAH HE WAS ATTEMPTING TO CLIMB OUT OF BED FREQUENTLY. YELLING OUT, SAYING HE WANTS US TO CALL THE POLICE. TELE AFIB - RATE 90-110'S. NO C/O PAIN. SATS >93% ON ROOM AIR. HERNÁNDEZ IN PLACE - DRIANING TO GRAVITY, ELSA CARE PERFORMED - ADEQUATE URINE OUTPUT. NO BM +GAS. PULLED IV OUT, PLACED NEW 20G RFA. R GROIN SITE LOOKS C/D/I, NO SIGNS OF SWELLING OR BLEEDING. ABLE TO DOPPLER DORSALIS PEDIS AND POSTERIOR TIBIAL PULSES NOW, MARKED WITH BROWN SHARPIE - FAINT SOUNDING, BUT AUDIBLE. MAG 1.3 AND PHOS 2.4 - SEE EMAR. CALL LIGHT WITHIN REACH, BED IN LOWEST POSITION. BED ALARM ON, WILL CONTINUE TO MONITOR.
--- NOTE | 2021-08-02 07:08 | NUR ---
Pt sleeping when I entered to sound of IV pump beeping end of infusion alert. He awakened spontaneously, speaking in conversation, mildly dyspneic, lying down, confused, but coherent although somewhat garbled speech. [place] vest on. IV Magnesium infusion noted complete: Kphos started per orders.
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
--- NOTE | 2021-08-02 17:33 | NUR ---
SHIFT SUMMARY PATIENT IS A/OX3, FORGETFUL AT TIMES. VSS. PATIENT REPORTS NO CHEST PAIN, PAIN, OR SOB. JEREMIAH GONZALEZ DC AT 1124, THE NEED FOR IT WAS NO LONGER. PATIENT STAYED IN BED, WASNT PULLING ON LINES, AND BED ALARM ON. THIS RN PROVIDED EDUCATION FOR WHY THE RESTRAINTS WERE IN PLACE TO BEGIN WITH. HERNÁNDEZ CATH IN PLACE DRAINING WITH GRAVITY. NO ACUTE CHANGES THIS SHIFT. BED IN LOWEST POSITION, CALL LIGHT WITHIN REACH, AND BED ALARM ON. WILL CONTINUE TO MONITOR AND PROVIDE CARE UNTIL HAND OFF.
[2021-08-03 04:25] LABS: Hematocrit 38.8 % (37.0-53.0); Hemoglobin 12.5 g/dL (13.5-17.5)
[2021-08-03 04:48] LABS: Albumin, Blood 1.4 g/dL (3.4-5.0); Anion Gap 6 mmol/L (6-16); Blood Urea Nitrogen 25 mg/dL (8-24); Bun/Creatinine Ratio 30.8 (12.0-20.0); CO2, Blood 29 mmol/L (21-32); Chloride, Blood 102 mmol/L (98-108); Creatinine, Blood 0.81 mg/dL (0.60-1.20); Glomerular Filtration Rate >60 (60-); Glucose, Blood 154 mg/dL (70-99); Magnesium, Blood 1.6 mg/dL (1.6-2.4); Phosphorus, Blood 2.3 mg/dL (2.5-4.9); Sodium, Blood 137 mmol/L (136-145)
--- NOTE | 2021-08-03 05:08 | NUR ---
SHIFT SUMMARY PT SLEEPY MOST OF NIGHT. CALLS OUT IN SLEEP. DENIES PAIN. ON RA MAINTAINING SATS OVER 90%. BP STABLE. HR AFIB 110'S. HERNÁNDEZ IN PLACE DRAINING YELLOW URINE TO GRAVITY. PEDAL PULSES FAINT WITH DOPPLER. IN BED SLEEPING WITH CALL ALARM AT SIDE. WILL CONTINUE TO MONITOR UNTIL REPORT GIVEN.
--- NOTE | 2021-08-03 13:39 | NUR ---
Recieved call from flight test supervisor Ca and discussed case. D/C plan if for placement with hospice. Pt confused today and family may benefit from discussion regarding code status and clearifying D/C plan. Pt resting in bed with his eyes closed. Pt appears comfortable with no S/S of distress at this time. Pt left undisturbed at this time. Spoke with Pt's Primary RN Tito and discussed case. shift coordinator reports that Pt experienced hallucinations. At this point in the shift hallucinations appeared to have stopped. Called and spoke with Pt's spouse Taryn. Taryn is requesting this RN to call her daughter in Law Andres. Called and spoke with Andres. Provided update and offered therapeutic listening. Confirmed plan for D/C to bed bug exterminator care facility with hospice. Engaged in therapeutic discussion regarding code status. Educated on life sustaining treatments including risk factors and implications of CPR. Continued therapeutic listening and answered questions. Deferred some questions for hospitalist to answer. Kennethevan reports plan to discuss further with family regarding Pt's wishes for code status. No other concerns reported at this time. Spoke with Dr Clay and discussed case. Dr Clay will call family today. Palliative Care will remain available.
--- NOTE | 2021-08-03 17:46 | NUR ---
SHIFT SUMMARY PT HAS BEEN RESTING, SLEEPING OFF AND ON, FOR THE DURATION. PT HAS BEEN EASILY ROUSABLE BY VERBAL STIMULI. PT MAKES NONSENSICAL STATEMENTS AND WILL ASK QUESTIONS OUT OF CONTEXT. PT HAS EXPRESSED NO C/O PAIN OR DISCOMFORT EVEN WHEN ASKED DIRECTLY. VSS, NO ACUTE CHANGES TO CURRENT CONDITION.
--- NOTE | 2021-08-04 05:15 | NUR ---
SHIFT SUMMARY PT ASLEEP MOST OF SHIFT. FREQUENTLY TALKS AND CALLS OUT IN HIS SLEEP. CONFUSED AT TIMES. VSS. ON RA SATS OVER 92%, LUNG SOUNDS CLEAR. HERNÁNDEZ IN PLACE DRAINING DARK YELLOW URINE TO GRAVITY. IN BED AWAKE WITH CALL ALARM AT SIDE. WILL CONTINUE TO MONITOR UNTIL REPORT GIVEN
[2021-08-04 09:40] LABS: Albumin, Blood 1.6 g/dL (3.4-5.0); Anion Gap 7 mmol/L (6-16); Blood Urea Nitrogen 22 mg/dL (8-24); Bun/Creatinine Ratio 31.8 (12.0-20.0); CO2, Blood 28 mmol/L (21-32); Calcium, Blood 8.3 mg/dL (8.5-10.1); Chloride, Blood 104 mmol/L (98-108); Creatinine, Blood 0.69 mg/dL (0.60-1.20); Glomerular Filtration Rate >60 (60-); Glucose, Blood 158 mg/dL (70-99); Magnesium, Blood 1.3 mg/dL (1.6-2.4); Phosphorus, Blood 2.7 mg/dL (2.5-4.9); Potassium, Blood 4.2 mmol/L (3.5-5.5); Sodium, Blood 139 mmol/L (136-145)
--- NOTE | 2021-08-04 18:16 | NUR ---
SHIFT SUMMARY PT HAS BEEN RESTING IN BED FOR THE DAY. PT HAS SLEPT OFF AND ON. PT WOULD WAKE WHEN THIS RN WOULD ENTER THE ROOM FOR CARE TASKS AND WOULD FALL BACK ASLEEP DURING THE TASK. PT CONTINUES TO MAKE NONSENICAL STATEMENTS AND FAILS TO BE REORIENTED DESPITE MULTIPLE ATTEMPTS. PT FORGETS STATEMENTS MADE BY THIS RN AND WILL ACTIVATE THE CALL LIGHT SYSTEM TO ASK THE SAME QUESTION MINUTES LATER. ALL VSS, NO C/O, NO ACUTE CHANGE TO CONDITION.
[2021-08-05 04:13] LABS: Hemoglobin 12.7 g/dL (13.5-17.5)
[2021-08-05 04:35] LABS: Albumin, Blood 1.5 g/dL (3.4-5.0); Anion Gap 4 mmol/L (6-16); Blood Urea Nitrogen 25 mg/dL (8-24); CO2, Blood 29 mmol/L (21-32); Calcium, Blood 8.2 mg/dL (8.5-10.1); Chloride, Blood 105 mmol/L (98-108); Creatinine, Blood 0.78 mg/dL (0.60-1.20); Glomerular Filtration Rate >60 (60-); Glucose, Blood 173 mg/dL (70-99); Magnesium, Blood 1.6 mg/dL (1.6-2.4); Phosphorus, Blood 2.3 mg/dL (2.5-4.9); Potassium, Blood 4.3 mmol/L (3.5-5.5); Sodium, Blood 138 mmol/L (136-145)
--- NOTE | 2021-08-05 04:57 | NUR ---
SHIFT SUMMARY PT ALERT BUT CONFUSED. IN MIDDLE OF NIGHT CALL OUT FOR HELP AND SAY HE NEEDS TO GET UP BECAUSE HIS SON IS WAITING OUTSIDE TO PICK HIM UP. REFUSES CARE AT TIMES, OTHERTIMES COOPERATIVE. ON RA SATS OVER 93. HERNÁNDEZ IN PLACE DRAINING DARK YELLOW URINE TO GRAVITY. MEPILEX IN PLACE OVER CALF AND HEEL WOUNDS. IN BED AWAKE WITH CALL ALARM AT SIDE.W ILL CONTINUE TO MONITOR UNTIL REPORT GIVEN
--- NOTE | 2021-08-05 12:43 | NUR ---
PATIENT ALERT AND ORIENTED X2-3. AT TIMES STATEMENTS ARE VERY CONFUSING. ABLE TO ANSWER MOST ORIENTING QUESTIONS. DENIES NUMBNESS/TINGLING. ABLE TO MOVE ALL EXTREMITIES. ON ROOM AIR SATING MID 90'S. NO TELE. BP STABLE, HR 70-80'S. MINIMAL EDEMA IN RIGHT LEG. BILATERAL PEDAL PULSES FOUND WITH DOPPLER. BILATERAL LOWER EXTREMITY DISCOLORATION FROM KNEES DOWN. LEFT CALF WOUND CLEANED AND REDRESSED. DENIES ABDOMINAL PAIN. HERNÁNDEZ CATH IN PLACE DRAINING CLEAR/MARLI URINE. DENIES OVERALL PAIN. EATING WELL. ACHS BLOOD SUGARS. Q2 TURNING AND NEEDED. CALL LIGHT IN REACH. WILL CONTINUE TO MONITOR.
--- NOTE | 2021-08-05 17:37 | NUR ---
SHIFT SUMMARY: PATIENT REMAINS ALERT AND ORIENTED X3. CONFUSED AT TIMES. DAUGHTER IN LAW AT BEDSIDE. NO CHANGES IN NEURO STATUS. MEDICAL STATUS NO TELE. HR REMAINS 90-110'S. DENIES CHEST PAIN/PRESSURE. ON ROOM AIR SATING MID 90'S. BP STABLE. LEFT CALF WOUND CLEANSED AND REDRESSED. EATING WELL. ACHS BLOOD SUGAR CHECKS. DENIES NEEDS AT THIS TIME. SLEEPING ON AND OFF. CALL LIGHT IN REACH. WILL CONTINUE TO MONITOR AND REPORT OFF TO ONCOMING RN.
[2021-08-06 03:35] LABS: Hematocrit 37.3 % (37.0-53.0); Hemoglobin 12.2 g/dL (13.5-17.5)
[2021-08-06 04:00] LABS: Albumin, Blood 1.5 g/dL (3.4-5.0); Anion Gap 7 mmol/L (6-16); Blood Urea Nitrogen 27 mg/dL (8-24); CO2, Blood 30 mmol/L (21-32); Calcium, Blood 7.9 mg/dL (8.5-10.1); Chloride, Blood 104 mmol/L (98-108); Creatinine, Blood 0.79 mg/dL (0.60-1.20); Glomerular Filtration Rate >60 (60-); Glucose, Blood 176 mg/dL (70-99); Magnesium, Blood 1.4 mg/dL (1.6-2.4); Phosphorus, Blood 2.4 mg/dL (2.5-4.9); Potassium, Blood 4.1 mmol/L (3.5-5.5); Sodium, Blood 141 mmol/L (136-145)
--- NOTE | 2021-08-06 06:04 | NUR ---
SHIFT SUMMARY PT RESTED WELL THROUGH THE NIGHT. ABLE TO MAKE NEEDS KNOWN, COOPERATIVE WITH CARE, BUT DOES TEND TO BE MORE CONFUSED THROUGH THE NIGHTTIME. MENTATION CLEARS MORESO DURING DAY. NO TELE, BUT HR WNL, AND NO SIGNS OR SYMPTOMS OF ANY CARDIAC EVENTS. DOPPLERED PULSES IN L LEG AND THEY ARE STILL PRESENT. HERNÁNDEZ IN PLACE, DRAINING TO GRAVITY, ELSA CARE PERFORMED - ADEQUATE UOP. STAGE 2 SACRAL WOUND, NO BM. VSS. NO C/O PAIN. CALL LIGHT WITHIN REACH, BED IN LOWEST POSITION. BED ALARM ON, WILL CONTINUE TO MONITOR.
--- NOTE | 2021-08-06 08:35 | NUR ---
INITIAL ASSESSMENT: Patient is alert and orietned x4. Denies pain at this time. HRR. LS dim dim in the bases, biox wnl on RA. BT+, attends in place. VSS. laborer mine at bedside to place powerglide to RUE. AM meds given at this time. Pts phos was low this am at 2.4, sodium phos hung. BLE with a black discoloration from the knee down into the feet, pedal pulses via doppler to BLE. mepilex dressing to left calf and mepilex heel protectors to bilat heels. Attends in place, christian cath patent and draining clear dark yellow urine. Patient denies other needs at this time. Call light in reach, will continue to monitor.
--- NOTE | 2021-08-06 17:17 | NUR ---
SUMMARY: PATIENT IS MEDICAL STATUS STILL AWAITING MEDICAID APPROVAL AND SNF PLACEMENT ON HOSPICE. HE HAD A GREAT DAY. HE RESTED THE MAJORITY OF THE SHIFT. FOR DINNER HE WAS ABLE TO GET OOB TO THE RECLINER WITH TWO PERSON ASSIST, GAIT BELT, AND FWW. BLE STILL REMAIN DISCOLORED, PULSES VIA DOPPLER. NO ACUTE CHANGES THIS SHIFT. WILL REPORT TO ONCOMING RN.
--- NOTE | 2021-08-07 05:48 | NUR ---
SHIFT SUMMARY PT RESTED WLL THROUGH THE NIGHT. ALERT AND ORIENTED, ABLE TO MAKE NEEDS KNOWN. COOPERATIVE WITH PLAN OF CARE. HERNÁNDEZ DRAINING, 1 BM. NO TELE.SATS >90% ON ROOM AIR. NO PAIN. VSS. CALL LIGHT WIHTIN REACH, BED IN LOWEST POSITION. WILL CONTINUE TO MONITOR.
[2021-08-07 06:07] LABS: Hematocrit 37.4 % (37.0-53.0)
[2021-08-07 06:25] LABS: Albumin, Blood 1.5 g/dL (3.4-5.0); Anion Gap 5 mmol/L (6-16); Blood Urea Nitrogen 28 mg/dL (8-24); Bun/Creatinine Ratio 37.5 (12.0-20.0); CO2, Blood 29 mmol/L (21-32); Chloride, Blood 104 mmol/L (98-108); Creatinine, Blood 0.75 mg/dL (0.60-1.20); Glomerular Filtration Rate >60 (60-); Glucose, Blood 161 mg/dL (70-99); Magnesium, Blood 1.7 mg/dL (1.6-2.4); Phosphorus, Blood 2.3 mg/dL (2.5-4.9); Sodium, Blood 138 mmol/L (136-145)
--- NOTE | 2021-08-07 08:45 | NUR ---
INITIAL ASSESSMENT: Patient is up oob to the chair after eating breakfast. He denies pain, but reports some "burning" on his bottom. HR irreg. LS dim in the bases, biox low 90s on RA. BT+. Bell cath patent and draining clear yellow urine. Pt has a blackish discoloration from right below his knees down into his feet. Pedal pulses via doppler, faint. VSS. Sodium phos 20 mmol started and am meds given. Patient denies other needs at this time, call light in reach. Will continue to monitor.
--- NOTE | 2021-08-07 14:10 | NUR ---
ASSUMED CARE OF PT. REPORT RECEIVED FROM ARON HODGES IN PCU. PT TRANSPORTED TO [facility] VIA HOSPITAL BED. HE WAS A/O X 3 ABLE TO ANSWER QUESTIONS APPROPRIATELY. PT ORIENTED TO HIS ROOM/CALL LIGHT. BED IN LOW POSITION AND BED ALARM ON, CALL LIGHT IN REACH. PT IN NO APPARENT DISTRESS AND DENIES ANY NEEDS AT THIS TIME.
--- NOTE | 2021-08-07 16:39 | NUR ---
DISCHARGE SUMMARY: PT AWAKE AND ALERT AT TIME OF DISCHARGE. REPORT CALLED TO JIMMY RN AT [facility] TO GIVE REPORT. SHE DID VERIFY SHE RECEIVED DISCHARGE PAPERS VIA FAX AND MONIE ARRIVED TO SET UP OXYGEN FOR PATIENT. DISCUSSED ASPIRATION PRECAUTIONS IN PLACE FOR [place] AND JIMMY DENIED ANY OTHER QUESTIONS OR CONCERNS. PT TRANSPORTED VIA TILT WHEELCHAIR WITH READY RIDE. PT BELONGINGS INCLUDING REINIER COLEMAN SENT WITH PT BELLSTAFF.
--- NOTE | 2021-08-07 18:01 | NUR ---
SHIFT SUMMARY: PT A/O X 3 ON BEDREST. PLEASANT AND COOPERATIVE TX FROM PCU 11 TODAY. PT REPORTED DRESSINGS TO WOUNDS WERE CHANGED BY FUSE CUTTER AND DECLINED TO HAVE WOUNDS CHECKED AGAIN AND DRESSINGS CHANGED. DRESSING TO BOTTOM, HEEL PROTECTORS AND SIDE OF LLE CDI. PT SLIGHTLY DYSPNEIC AT TIMES WHEN TALKING BUT RECOVERS QUICKLY. NO ACUTE CHANGES THIS SHIFT.
--- NOTE | 2021-08-08 04:28 | NUR ---
SHIFT SUMMARY PATIENT HAD NO ACUTE CHANGES OBSERVED. AXOX 3 WITH CONFUSION AT TIMES. BEDREST. POWERGLIDE PIERRE INTACT. HERNÁNDEZ PATENT AND DRAINING FOR RETENTION. VSS/AFEBRILE. DENIES PAIN, SOB, AND N/V. REPORTED COUGH AND GAUIFENESIN 10mL GIVEN PER EMAR. CALL LIGHT IN REACH. BED IN LOWEST POSITION. WILL CONTINUE TO MONITOR UNTIL DAY SHIFT NURSE ASSUMES CARE.
[2021-08-08 06:35] LABS: Hematocrit 38.5 % (37.0-53.0); Hemoglobin 12.2 g/dL (13.5-17.5)
[2021-08-08 07:28] LABS: Albumin, Blood 1.7 g/dL (3.4-5.0); Anion Gap 4 mmol/L (6-16); Blood Urea Nitrogen 23 mg/dL (8-24); Bun/Creatinine Ratio 32.7 (12.0-20.0); CO2, Blood 31 mmol/L (21-32); Calcium, Blood 8.2 mg/dL (8.5-10.1); Chloride, Blood 105 mmol/L (98-108); Glomerular Filtration Rate >60 (60-); Glucose, Blood 107 mg/dL (70-99); Magnesium, Blood 1.8 mg/dL (1.6-2.4); Phosphorus, Blood 2.7 mg/dL (2.5-4.9); Potassium, Blood 4.5 mmol/L (3.5-5.5); Sodium, Blood 140 mmol/L (136-145)
--- NOTE | 2021-08-08 16:05 | NUR ---
SHIFT SUMMARY PATIENT IS ALERT AND ORIENTED X3. PATIENT IS OCCASIONALLY CONFUSED. HARD OF HEARING. PATIENT HAS A HERNÁNDEZ FOR RETENTION, DRAINING TO GRAVITY. PATIENT HAD MEMPLEX ON SACRAL CHANGED TODAY. PATIENT HAD A BEDBATH TODAY. VITAL SIGNS REVIEWED. NO ACUTE CHANGES THIS SHIFT. CALL LIGHT IN PLACE. WILL MONITOR UNTIL SHIFT CHANGE.
[2021-08-08] MEDS ORDERED: MINOCYCLINE HC100 M2 PO (19:39)
[2021-08-08] MEDS ORDERED: Isosorbide Mono30 MG PO (19:40)
[2021-08-08] MEDS ORDERED: ATOR80 PO (19:40)
[2021-08-08] MEDS ORDERED: METO50ER PO (19:40)
[2021-08-08] MEDS ORDERED: FLUT1DIS2 INH (19:41)
[2021-08-08] MEDS ORDERED: TORSE20 PO (19:41)
[2021-08-08] MEDS ORDERED: TAMS.4ER PO (19:41)
[2021-08-08] MEDS ORDERED: POTCHL20ER PO (19:42)
[2021-08-08] MEDS ORDERED: Flonase 0.05% N16 GM (19:42)
[2021-08-08] MEDS ORDERED: Aspir 8181 MG PO (19:43)
[2021-08-08] MEDS ORDERED: OMEP20ER PO (19:43)
[2021-08-08] MEDS ORDERED: ALBU90OI INH (19:45)
[2021-08-09 05:37] LABS: Hematocrit 37.3 % (37.0-53.0); Hemoglobin 11.8 g/dL (13.5-17.5)
--- NOTE | 2021-08-09 05:51 | NUR ---
PT SLEPT THROUGH THE NIGHT, MADE NO COMPLAINTS AND NO ACUTE CHANGES NOTED. REMAINED ORIENTED X4. MEPILEX TO L ANTERIOR LL, AND BL HEELS CDI. STAFF WILL CONT TO MONITOR.
[2021-08-09 06:57] LABS: Albumin, Blood 1.7 g/dL (3.4-5.0); Anion Gap 5 mmol/L (6-16); Blood Urea Nitrogen 24 mg/dL (8-24); Bun/Creatinine Ratio 33.6 (12.0-20.0); CO2, Blood 32 mmol/L (21-32); Calcium, Blood 8.3 mg/dL (8.5-10.1); Chloride, Blood 104 mmol/L (98-108); Creatinine, Blood 0.71 mg/dL (0.60-1.20); Glomerular Filtration Rate >60 (60-); Glucose, Blood 123 mg/dL (70-99); Magnesium, Blood 1.5 mg/dL (1.6-2.4); Phosphorus, Blood 2.8 mg/dL (2.5-4.9); Potassium, Blood 4.6 mmol/L (3.5-5.5); Sodium, Blood 141 mmol/L (136-145)
--- NOTE | 2021-08-09 09:30 | NUR ---
Pt resting in bed upon arrival. Pt denies pain at this time. Pt appears dyspneic when speaking as evidenced by work of breathing and speaking 1 to 2 word sentences. Engaged in therapeutic conversation regarding wishes for code status. Attempted to educate on CPR but Pt appears to have no interest in discussing this issue. Pt states he would like to leave it up to Donala. Discussed plan to find placement with hospice services with Pt reporting being in agreement. Ended visit to allow Pt to rest. Palliative Care will remain available if called upon.
--- NOTE | 2021-08-09 16:16 | NUR ---
SHIFT SUMMARY PATIENT IS ALERT AND ORIENTED X3. PATIENT HAS BEEN PLEASENT AND COOPERATIVE WITH CARE. PATIENT IS HARD OF HEARING. PATIENT HAS A MEMPLEX ON SACRUM THAT HAS BEEN CHANGED TWICE THIS SHIFT. PATIENT HAS HAD NO ACUTE CHANGES THIS SHIFT. VITAL SIGNS REVIEWED. WILL MONITOR UNTIL SHIFT CHANGE.
[2021-08-10 05:04] LABS: Hematocrit 39.8 % (37.0-53.0); Hemoglobin 12.6 g/dL (13.5-17.5); Mean Corpuscular HGB 29.2 pg (26.0-34.0); Mean Corpuscular HGB Conc 31.7 g/dL (31.5-36.5); Mean Corpuscular Volume 92 fL (80-100); Mean Platelet Volume 11.9 fL (9.1-12.4); Platelet Count 236 K/mm3 (150-400); RDW Coefficient Variation 15.5 % (11.7-14.2); RDW Standard Deviation 52.1 fL (35.1-46.3); Red Blood Cell Count 4.31 M/mm3 (4.30-5.90); White Blood Cell Count 6.53 K/mm3 (4.00-11.30)
--- NOTE | 2021-08-10 05:32 | NUR ---
SHIFT SUMMARY PT AOX2 AND VERY [place] BUT ABLE TO MAKE NEEDS KNOWN OFTEN THIS SHIFT. PT DOES NOT USE THE CALL LIGHT INSTEAD THEY YELL OUT INTO THE HALLWAY FOR HELP, ONLY TO WANT THE LIGHTS OFF. PT MEDICATED PER EMAR AND TOLERATED MEDS WELL PO. THE PT. IS CURRENTLY AWAKE IN BED AND CONFUSED ABOUT LOCATION AT THE MOMENT. THIS NURSE WILL CONTINUE TO MONITOR AND REORIENT THE PT UNTIL REPORT IS GIVEN.
[2021-08-10 05:49] LABS: Albumin, Blood 1.9 g/dL (3.4-5.0); Anion Gap 6 mmol/L (6-16); Blood Urea Nitrogen 26 mg/dL (8-24); Bun/Creatinine Ratio 32.7 (12.0-20.0); CHOL/HDL RATIO 3.9; CO2, Blood 31 mmol/L (21-32); Calcium, Blood 8.7 mg/dL (8.5-10.1); Chloride, Blood 104 mmol/L (98-108); Cholesterol 155 mg/dL (50-200); Creatinine, Blood 0.79 mg/dL (0.60-1.20); Glomerular Filtration Rate >60 (60-); Glucose, Blood 136 mg/dL (70-99); HDL Cholesterol 40 mg/dL (>39); LDL/HDL RATIO 2.4; Low Density Lipoprotein Chol 94 mg/dL (0-110); Magnesium, Blood 1.7 mg/dL (1.6-2.4); Phosphorus, Blood 2.9 mg/dL (2.5-4.9); Potassium, Blood 4.7 mmol/L (3.5-5.5); Sodium, Blood 141 mmol/L (136-145); Triglycerides 104 mg/dL (30-160); Very Low Density Lipoprot Chol 20 mg/dL (6-32)
--- NOTE | 2021-08-10 17:30 | NUR ---
SHIFT SUMMARY 86 Y MALE ADMITTED WITH ACUTE KIDNEY INJURY. PT IS A&O, AND COOPERATIVE WITH CARE. PT IS ABLE TO MAKE HIS NEEDS KNOW AND REPOSTITIONS IN BED IND. D/C PLANS FOR PT PENDING HOME WITH HOME HEALTH OR HOSPICE. NO OTHER CHANGES TO REPORT THIS SHIFT.
[2021-08-11 04:50] LABS: Hematocrit 34.7 % (37.0-53.0)
[2021-08-11 05:19] LABS: Albumin, Blood 1.8 g/dL (3.4-5.0); Anion Gap 6 mmol/L (6-16); Blood Urea Nitrogen 28 mg/dL (8-24); Bun/Creatinine Ratio 39.4 (12.0-20.0); CO2, Blood 33 mmol/L (21-32); Calcium, Blood 8.4 mg/dL (8.5-10.1); Chloride, Blood 101 mmol/L (98-108); Creatinine, Blood 0.71 mg/dL (0.60-1.20); Glomerular Filtration Rate >60 (60-); Glucose, Blood 174 mg/dL (70-99); Magnesium, Blood 1.5 mg/dL (1.6-2.4); Phosphorus, Blood 3.4 mg/dL (2.5-4.9); Potassium, Blood 4.3 mmol/L (3.5-5.5); Sodium, Blood 140 mmol/L (136-145)
--- NOTE | 2021-08-11 05:30 | NUR ---
SHIFT SUMMARY PT AOX2-3 AND SOMEWHAT COOPERATIVE WITH CARE THIS SHIFT. PT CONSTANTLY REQUESTS TO SIT ON THE BEDPAN BUT NO BM THIS SHIFT JUST GAS. PT MEDICATED PER EMAR FOR SLIGHT FEVER AND COUGH. PT MOVED HERNÁNDEZ CATH FREQUENTLY AND BLOOD NOTICED IN URINE SOME. WOUND ON BOTTOM NO LONGER OPEN NOR COVERED. PT. CONFUSED AT TIMES AND VERY [place]. CURRENTLY ASLEEP WITH RISE AND FALL OF CHEST, WILL CONTINUE TO MONITOR UNTIL REPORT IS GIVEN.
[2021-08-11 16:24] LABS: Hematocrit 35.2 % (37.0-53.0); Hemoglobin 11.1 g/dL (13.5-17.5); Mean Corpuscular HGB 29.1 pg (26.0-34.0); Mean Corpuscular HGB Conc 31.5 g/dL (31.5-36.5); Mean Corpuscular Volume 92 fL (80-100); Mean Platelet Volume 11.2 fL (9.1-12.4); Platelet Count 232 K/mm3 (150-400); RDW Coefficient Variation 15.5 % (11.7-14.2); RDW Standard Deviation 51.8 fL (35.1-46.3); Red Blood Cell Count 3.82 M/mm3 (4.30-5.90); White Blood Cell Count 6.34 K/mm3 (4.00-11.30)
--- NOTE | 2021-08-11 18:13 | NUR ---
PT SUMMARY: PT REMAINS ALERT AND ORIENTED VERY HARD OF HEARING, VITALS HRR WAS ELEVATED AT 120'S BEFORE THE END OF THE SHIFT, ORDERED TELE PT WAS ST WITH PVCS AT 110S AT THIS TIME PER WELD TECHNICIAN, BP SYSTOLIC WAS DOWN TO 90'S, SATS ABOVE 94% ON RA, AFEBRILE. LACTIC WAS ELEVATED AT 2.6 DR GALVEZ CALLED AND MADE AWARE TO INFUSE BOLUS OF 250 NS, GIVE METOPROLOL DOSE WHEN BP IS STABLE. CATHETER WAS REPLACED TO COLLECT UA SAMPLE TO R/O POSS UTI. PT DENIES CHEST PAIN/PALPITATIONS. MED CHANGES ON BP AND DIURETICS MEDICINE. PT HAS BEEN RESTING IN BED MOST OF THE SHIFT. CALLS APPROPRIATELY. FAMILY WAS IN TO VISIT. NO OTHER ISSUES REPORTED. WILL MONITOR
[2021-08-11 18:46] LABS: Source, Urine Catheter
[2021-08-11 18:50] LABS: Appearance, Urine Hazy (Clear); Bilirubin, Urine Neg (Neg); Blood, Urine 4+ (Neg); Color, Urine Yellow (P-Yellow); Glucose Qualitative, Urine Neg (Neg); Ketones, Urine Neg (Neg); Leukocyte Esterase, Urine 3+ (Neg); Nitrite, Urine Neg (Neg); Protein, Urine Neg (Neg); Specific Gravity, Urine 1.015 (1.003-1.022); Urobilinogen, Urine NORM (Normal)
[2021-08-11 19:07] LABS: Bacteria Many /hpf; Squamous Epithelial Cells Rare /hpf (Few)
--- NOTE | 2021-08-12 02:09 | NUR ---
PT HR DROPS DOWN TO 30S OR 40S THEN BACK UP TO TACHY 110S. PT. SITTING IN BED WITH NO S/S OF DISTRESS. THIS NURSE WILL NOTIFY ONCALL OF DRASTIC CHANGES.
--- NOTE | 2021-08-12 04:20 | NUR ---
SHIFT SUMMARY PT AOX2-3 AND ON THE CALL LIGHT DEMANDING TO USE THE BEDPAN AT THE START OF THIS SHIFT. PT HAD A MEDIUM BM AND WAS COOPERATIVE WITH CARE TO GET CLEANED UP SO THIS NURSE COULD COMPLETE THE ASSESSMENT. PT MEDICATED PER EMAR AND C/O BACK PAIN/NOT COMFORTABLE IN BED. PT. COUGH IMPROVED SOME AFTER MEDICATION THIS SHIFT. PT HAS HAD ISSUES WITH HR IN THE 30-40S THEN SHOOTING BACK UP TO THE 110S. PT HAS NOT BEEN IN DISTRESS EACH ROUND AND ATE PUDDING DURING CALL FROM TELE ABOUT HR. ENTERPRISE APPLICATION ARCHITECT NOTIFIED AND ORDERS GIVEN. PT. JUST FELL BACK ASLEEP WITH NO S/S OF DISTRESS AND RISE/FALL OF CHEST. THIS NURSE WILL CONTINUE TO MONITOR UNTIL REPORT IS GIVEN.
[2021-08-12 05:09] LABS: Hematocrit 34.7 % (37.0-53.0); Hemoglobin 10.9 g/dL (13.5-17.5); Mean Corpuscular HGB Conc 31.4 g/dL (31.5-36.5); Mean Corpuscular Volume 92 fL (80-100); Mean Platelet Volume 11.2 fL (9.1-12.4); Platelet Count 289 K/mm3 (150-400); RDW Coefficient Variation 15.7 % (11.7-14.2); RDW Standard Deviation 52.1 fL (35.1-46.3); Red Blood Cell Count 3.76 M/mm3 (4.30-5.90); White Blood Cell Count 7.49 K/mm3 (4.00-11.30)
[2021-08-12 05:42] LABS: Albumin, Blood 1.9 g/dL (3.4-5.0); Anion Gap 5 mmol/L (6-16); Blood Urea Nitrogen 33 mg/dL (8-24); Bun/Creatinine Ratio 43.4 (12.0-20.0); CO2, Blood 35 mmol/L (21-32); Calcium, Blood 8.4 mg/dL (8.5-10.1); Chloride, Blood 103 mmol/L (98-108); Creatinine, Blood 0.76 mg/dL (0.60-1.20); Glomerular Filtration Rate >60 (60-); Glucose, Blood 157 mg/dL (70-99); Magnesium, Blood 1.7 mg/dL (1.6-2.4); Phosphorus, Blood 3.1 mg/dL (2.5-4.9); Potassium, Blood 3.8 mmol/L (3.5-5.5); Sodium, Blood 143 mmol/L (136-145)
--- NOTE | 2021-08-12 07:28 | NUR ---
CALLED DR HUANG WITH EKG RESULTS. PT STILL DOES NOT APPEAR TO BE IN ANY DISTRESS. SPOKE ABOUT THE CRITICAL LACTIC FROM LAST NIGHT AT 1930. PT ON A SINGLE LITER IVF.
--- NOTE | 2021-08-12 16:00 | NUR ---
SHIFT SUMMARY- PT CONTINUES TO BE ASYMPTOMATIC WITH THE IRREGULAR HEART RATE. SOMETIMES BEING BRADYCARDIC AND OTHER TIMES TACHYCARDIC. AT THE TIME OF MORNING VITALS HR WAS 54 AT THE TIME OF MORNING MEDS HR WAS 118 PER TELE. PT HAS BEEN CONVERSATIONAL T/O THE DAY, DAFAITHR BROUGHT HIS SPOUSE IN TO SEE HIM AFTER SHE WAS SEEN IN THE ER FOR A UTI. PT WAS VERY CONCERNED ABOUT HIS FOR A MAJORITY OF THE MORNING BECAUSE HE KNEW SHE WAS BEING BROUGHT IN TO THE ER. PT IS CURRENTLY SITTING UP IN BED, CALL LIGHT IN REACH, NO S&S OF DISTRESS NOTED. WILL CTM.
--- NOTE | 2021-08-13 02:33 | NUR ---
MACHINE GUN MECHANIC EVENT GOT CALLLED BY TELE THAT PATIENTHAD A 3.97s AT 08/12/21 PATIENT WAS AASSESSED BY THE OIL EXPERT, HE WAS NOT IN ANY DISTRESS. HIS VITALS WERE STABLE DR. MCKINNEY WHO SAID PATEINT SHOULD BE MONITORED FOR NOW AFTER SHE WENT THROUGH HER NIGHT MEDS WITH ME. GOT ANOTHER CALL FROM TELE AT ABOUT 0230 THAT THE PATIENT IS HAVING 6s PAUSES, V/S WERE CHECKED AND DOCUMENTED, HE STATED HE WAS NOT HAVING ANY SOB, CP AND ANY OTHERSYMPTOMS. DR. GONZALEZ WAS INFORMED AND HE SAID TO MONITOR PATIENT FOR NOW. WILL CONTINUE TO MONITOR PT.
[2021-08-13 05:53] LABS: Hematocrit 36.1 % (37.0-53.0); Hemoglobin 11.2 g/dL (13.5-17.5)
[2021-08-13 06:44] LABS: Anion Gap 5 mmol/L (6-16); Blood Urea Nitrogen 29 mg/dL (8-24); Bun/Creatinine Ratio 36.8 (12.0-20.0); CO2, Blood 34 mmol/L (21-32); Calcium, Blood 8.5 mg/dL (8.5-10.1); Chloride, Blood 103 mmol/L (98-108); Creatinine, Blood 0.79 mg/dL (0.60-1.20); Glomerular Filtration Rate >60 (60-); Glucose, Blood 117 mg/dL (70-99); Magnesium, Blood 1.8 mg/dL (1.6-2.4); Phosphorus, Blood 2.7 mg/dL (2.5-4.9); Potassium, Blood 4.1 mmol/L (3.5-5.5); Sodium, Blood 142 mmol/L (136-145)
--- NOTE | 2021-08-13 18:19 | NUR ---
PATIENT A/OX3, VERY [place]. WORKED WITH PT TODAY AND USES A LIFT FOR TRANSFERS. DRESSING TO SACRAL WOUND CHANGED TODAY. HERNÁNDEZ TO GRAVITY. VSS, ON RA. A-FIB ON TELE WITH HR FLUCTUATING BETWEEN 40'S AND 120, PATIENT NOT SYMPTOMATIC WITH THESE FLUCTUATIONS. PATIENT DENIES ANY CP OR SOB. BLE DARK PURPLE. AWAITING PLACEMENT.
--- NOTE | 2021-08-14 05:39 | NUR ---
PATIENT ALERT AND OREINTED X3, [place], HERNÁNDEZ WAS PATENT WITH CLEAR URINE. PATIENT DENIES ANY PAIN. TELE SHOWS AFIB. LIFT ASSIST, REGULAR DIET. NO ACUTE CHANGES. CALL LIGHT IN PLACE AND BED IN LOWEST POSITION.
[2021-08-14 09:48] LABS: Hematocrit 39.4 % (37.0-53.0); Hemoglobin 12.1 g/dL (13.5-17.5)
[2021-08-14 10:12] LABS: Albumin, Blood 2.1 g/dL (3.4-5.0); Anion Gap 6 mmol/L (6-16); Blood Urea Nitrogen 27 mg/dL (8-24); Bun/Creatinine Ratio 30.1 (12.0-20.0); CO2, Blood 33 mmol/L (21-32); Calcium, Blood 8.4 mg/dL (8.5-10.1); Chloride, Blood 100 mmol/L (98-108); Glomerular Filtration Rate >60 (60-); Glucose, Blood 179 mg/dL (70-99); Magnesium, Blood 1.5 mg/dL (1.6-2.4); Phosphorus, Blood 3.1 mg/dL (2.5-4.9); Potassium, Blood 4.1 mmol/L (3.5-5.5); Sodium, Blood 139 mmol/L (136-145)
--- NOTE | 2021-08-14 18:11 | NUR ---
PATIENT A/OX4, USING A LIFT FOR TRANSFERS. DRESSING TO SACRAL WOUND REMAINS C/D/I. NO ACUTE CHANGES TODAY. PATIENT AWAITING TANK DRIVER PLACEMENT. MURIEL ARMENTA CAME TO ASSESS PATIENT AT TODAY WITH DAUGHTER AT BEDSIDE. CALM AND COOPERATIVE WITH CARE, USING CALL LIGHT APPROPRIATELY FOR ASSISTANCE.
--- NOTE | 2021-08-15 05:24 | NUR ---
PATIENT WAS ALERT AND ORIENTED X3, PLEASNT AND COOPERATIVE, [place], LIFT TRANSFER, AWAITING PLACEMENT. STABLE VITAL SIGNS, NO ACUTE CHANGES. PATIENT SLEPT THROUGH THE NIGHT. CALL LIGHT WITHING REACH. BED DOWN TO THE LOWEST POSTION.
[2021-08-15 05:43] LABS: Hematocrit 38.7 % (37.0-53.0); Hemoglobin 12.1 g/dL (13.5-17.5)
[2021-08-15 06:44] LABS: Albumin, Blood 2.1 g/dL (3.4-5.0); Anion Gap 5 mmol/L (6-16); Blood Urea Nitrogen 23 mg/dL (8-24); Bun/Creatinine Ratio 36.3 (12.0-20.0); CO2, Blood 32 mmol/L (21-32); Calcium, Blood 8.2 mg/dL (8.5-10.1); Chloride, Blood 102 mmol/L (98-108); Creatinine, Blood 0.63 mg/dL (0.60-1.20); Glomerular Filtration Rate >60 (60-); Glucose, Blood 113 mg/dL (70-99); Phosphorus, Blood 3.2 mg/dL (2.5-4.9); Potassium, Blood 3.8 mmol/L (3.5-5.5); Sodium, Blood 139 mmol/L (136-145)
--- NOTE | 2021-08-15 17:35 | NUR ---
PATIENT A/OX3, ABLE TO MAKE NEEDS KNOWN. UP TO CHAIR TODAY WITH A LIFT. DRESSINGS CHANGED TO SARAL WOUND AND L CALF WOUND, PICS TAKEN AND PLACED ON CHART. VSS, ON RA. TOLERATING ADA DIET, ABLE TO FEE HIMSELF. CALLAURORA ARMENTA IN YESTERDAY TO EVAULATE PATIENT. ACHS BLOOD SUGARS, NO SS COVERAGE NEEDED THIS SHIFT. CALLS APPROPRIATELY FOR ASSISTANCE. NO NEW CONCERNS THIS SHIFT.
--- NOTE | 2021-08-16 04:46 | NUR ---
COREMAKER SUPERVISOR SUMMARY PATIENT HAD A FAIR SHIFT. VITALS WERE STABLE. NO COMPLAINTS LODGED. WILL CONTINUE TO MONITOR HIM.
--- NOTE | 2021-08-16 18:23 | NUR ---
SHIFT SUMMARY- PT ALERT AND ORIENTED X3. PT HAS HAD NO ACUTE CHANGE T/O THE DAY TODAY. HE DID SOME EXERCISES WITH PHYSICAL THERAPY TODAY. NO BM TODAY, HE REFUSED MIRALAX THIS MORNING, PER REPORT HE HAD A BM YESTERDAY HOWEVER. PT HAS DECLINED ANY NEED FOR PAIN MEDICATION. BG HAS BEEN BELOW 200 ALL DAY. PLAN IS FOR THE PT TO DISCHARGE ON HOSPICE, UNKNOWN WHEN AT THIS TIME. PLACEMENT IS AN ISSUE. PT DOES NOT USE THE CALL LIGHT HE CALLS OUT WHEN HE NEEDS SOMETHING, PT VERY [place] HERNÁNDEZ CATH IN PLACE PATENT AND DRAINING DARK YELLOW URINE. PT IN BED, CALL LIGHT IN REACH, NO S&S OF DISTRESS NOTED AT THIS TIME, WILL CTM AND PASS ON TO NIGHT RN IN BEDSIDE REPORT.
--- NOTE | 2021-08-17 05:36 | NUR ---
SHIFT SUMMARY PT IS AN 86 Y/O MALE, ADMITTED FOR ACUTE KIDNEY INJURY. HE IS A&O X 2, VERY [place]. BEDREST. HERNÁNDEZ IN PLACE, PATENT AND DRAINING. VITAL SIGNS STABLE. NO C/O ACUTE PAIN, NAUSEA OR SOB. CALL LIGHT IN REACH. NO ACUTE CHANGES IN PT CONDITION NOTED DURING THE NIGHT. WILL CONTINUE TO MONITOR AND TREAT PER EMAR UNTIL HAND OFF TO DAY SHIFT RN.
--- NOTE | 2021-08-17 16:47 | NUR ---
SHIFT SUMMARY PT ALERT AND ORIENTED. VS STABLE. PT DENIES ANY PAIN. BP STABLE. O2 SATS REMAIN ABOVE 90% ON RA. PT REPOSITIONED Q2H WITH MINIMAL ASSISTANCE. PT HAD BED BATH THIS SHIFT. DRESSING TO WOUNDS ON PT'S LEGS CHANGED THIS SHIFT. MEPILEX TO SACRUM CHANGED. FAMILY AT BEDSIDE. WILL CONTINUE TO MONITOR AND REPORT TO ONCOMING RN.
--- NOTE | 2021-08-18 05:46 | NUR ---
PT HAS SLEPT WELL THROUGH THE NIGHT, NOT ORIENTED TO DATE OR TIME. MEPILEX CHANGED AFTER BM ON THE BEDPAN. SACRAL AND BUTTOCKS SKIN HEALING WITH SMALL OPEN AREAS, OINTMENT APPLIED. PT ABLE TO TRANSFER WEIGHT IN BED, BUT REQUIRES BOOST. NO ACUTE CHANGES OVER NIGHT. WILL CONT TO MONITOR.
--- NOTE | 2021-08-18 15:03 | NUR ---
SHIFT SUMMARY PT AWAKE AT START OF SHIFT, WATCHING TV. A&O TO SELF AND FAMILY. PER SHIFT REPORT, PT WAITING FOR PLACEMENT AT [facility]. BLE'S VERY DRK D/T VENOUS STASIS, DRSG TO BL HEELS C/D/I. HERNÁNDEZ TO GRAVITY, PATENT DRAINING CL YELLOW URINE. PT NOT WANTING CATHETER D/C'D HE REPORTS BAD URINARY RETENSION. UP TO EOB ON HIS OWN DOING EXERCISES. CALLS FOR NEEDS. RESTING QUIETLY AT THIS TIME. CALL LT IN REACH.
--- NOTE | 2021-08-19 04:25 | NUR ---
ELECTRICAL PANEL BUILDER SUMMARY PATIENT HAD A FAIR SHIFT, WITH STABLE VITALS. HE DID NOT HAVE ANY COMPLAINTS OVERNIGHT. WILL CONTINUE TO MONITOR HIM.
--- NOTE | 2021-08-19 18:23 | NUR ---
SHIFT SUMMARY: PT A/O TO SELF, PLEASANTLY CONFUSED. PT WORKED WITH PT TODAY. PT HAD NO COMPLAINTS. DRESSING CHANGE COMPLETED TO POWERGLIDE.
--- NOTE | 2021-08-20 04:21 | NUR ---
TOMOGRAPHIC TECH SUMMARY PATIENT HAD A FAIR SHIFT. HIS VITALS ARE STABLE. HAD HIS COUGH MEDICATION. NO OTHER COMPLAINTS OVERNIGHT. WILL CONTINUE TO MONITOR HIM.
--- NOTE | 2021-08-20 17:35 | NUR ---
SUMMARY PT RESTING QUIETLY IN BED, PT WAKES EASILY, IS [place], PLEASANT AND COOPERATIVE WITH CARE, ABLE TO ASSIST WITH TURNS, FAMILY HAS BEEN IN TO VISIT, PT OCC CONFUSED, VSS, WILL CONT TO MONITOR
--- NOTE | 2021-08-21 03:56 | NUR ---
SHIFT SUMMARY NO ACUTE CHANGES. PT SLEEPING MOST OF THE NIGHT. PT WAITING FOR PLACEMENT TO [facility]. PT IS A 2 PERSON ASSIST OR LIFT. A&O X 2-3. PT CONFUSED AT TIMES, BUT PLEASANT AND COOPERATIVE WITH HIS CARE. PT IS [place]. PT HAS CATHETER THAT IS PATENT AND DRAINING. PT HAS POWERGLIDE IN R ARM. DRESSING ON COCCYX. CALL LIGHT WITHIN REACH AND WILL CONTINUE TO MONITOR.
--- NOTE | 2021-08-21 07:30 | NUR ---
AM BLOOD SUGAR OF 119
--- NOTE | 2021-08-21 11:30 | NUR ---
1130 BLOOD SUGAR OF 166
--- NOTE | 2021-08-21 16:46 | NUR ---
SHIFT SUMMARY PT RELUCTANTLY GOT UP TO THE RECLINER TODAY USING THE [facility] LIFT. PT ONLY STAYED UP FOR APPROX 2 HOURS. PT WAS UPSET THAT HE WAS UP FOR THIS LONG, STATING HIS BOTTOM WAS HURTING. PT NOW BACK IN BED. REFUSED REPOSITIONING TO THE L SIDE. PT REFUSING TO GET UP THIS AFTERNOON WELL. HERNÁNDEZ DRAINING & CLEANED TODAY. PREVENTION MEPILEX PLACED TO HEELS. PT REFUSES TO HAVE HEELS FLOATED. DRESSING TO L CALF REPLACED TODAY. NO OTHER ACUTE CHANGES IN ASSESSMENT AT THIS TIME. VS REVIEWED. CALL LIGHT IN REACH.
--- NOTE | 2021-08-22 04:23 | NUR ---
SHIFT SUMMARY A/O, ABLE TO MAKE NEEDS KNOWN. COOPERATIVE WITH CARE. [place] OWINGEH. CALLS AND ANSWERS QUESTIONS APPROPRIATELY. NO C/O PAIN/DISCOMFORT. APPEARED TO REST MUCH OF THE NIGHT. NO ACUTE CHANGES NOTED. AWAITING MEDICAID APPLICATION APPROVAL AND PLACEMENT. BED REMAINED IN LOWEST POSITION; ALARM ON. CALL LIGHT WITHIN REACH. REPORT TO ONCOMING RN.
--- NOTE | 2021-08-23 04:36 | NUR ---
SHIFT SUMMARY PATIENT HAD NO ACUTE CHANGES OBSERVED. AXOX 2 FORGETFUL AND [place]. BEDREST/LIFT. POWERGLIDE QUENTIN. HERNÁNDEZ PATENT AND DRAINING TO GRAVITY. PATIENT FORGOT HE TOOK HIS SCHEDULE MEDICATION. DENIES PAIN, SOB, AND N/V. VSS/AFEBRILE. CBG 135. CALL LIGHT IN REACH. BED IN LOWEST POSITION. WILL CONTINUE TO MONITOR UNTIL DAY SHIFT NURSE ASSUMES CARE.
--- NOTE | 2021-08-24 04:19 | NUR ---
SHIFT SUMMARY PATIENT HAD NO ACUTE CHANGES OBSSERVED. AXOX 2 WITH CONFUSION. HX DEMENTIA. BEDREST AND [place]. HERNÁNDEZ PATENT AND DRAINING TO GRAVITY. DENIES PAIN, SOB, AND N/V. POWERGLIDE QUENTIN INTACT. CBG 221. VSS/AFEBRILE. ROBITUSSIN GIVEN X ONE FOR COUGH PRN. CALL LIGHT IN REACH. BED IN LOWEST POSITION. WILL CONTINUE TO MONITOR UNTIL DAY SHIFT NURSE ASSUMES CARE.
--- NOTE | 2021-08-25 05:43 | NUR ---
SHIFT SUMMARY NO ACUTE CHANGES TO REPORT OVERNIGHT. PT HAS SLEPT T/O THE SHIFT, HE HAS DENIED PAIN. PLAN OF CARE UNCHANGED. PT A/OX4, PLESANT AND COOPERATIVE WITH CARE. BED IN LOWEST POSITION, CALL LIGHT WITHIN REACH.
--- NOTE | 2021-08-26 05:42 | NUR ---
SHIFT SUMMARY NO ACUTE CHANGES TO REPORT THIS SHIFT, PT HAS RESTED T/O THE SHIFT. A/OX4, PLESANT WITH CARE. ASSESSMENT UNCHANGED. BED IN LOWEST POSITION, CALL LIGHT WITHIN REACH.
--- NOTE | 2021-08-27 06:37 | NUR ---
SHIFT SUMMARY PATIENT ALERT AND ORIENTED X2-3. HAD NO COMPLAINTS OF PAIN OR SHORTNESS OF BREATH. NO ACUTE ISSUES NOTED OVERNIGHT. BED IN LOWEST POSITION WITH WHEELS LOCKED AND ALARM ON. CALL LIGHT WITHIN REACH. REPORT GIVEN TO ONCOMING RN.
--- NOTE | 2021-08-27 16:23 | NUR ---
SHIFT SUMMARY PATIENT IS ALERT AND ORIENTATED X2. PATIENT IS CONFUSED AT TIMES WITH A HX OF DEMENTIA. PATIENT HAS A HERNÁNDEZ AND IS DRAINING TO GRAVITY. PATIENT DENIES AND PAIN, NAUSEA, SOB OR VOMITTING THIS SHIFT. VITAL SIGNS REVIEWED. NO ACUTE ISSUES THIS SHIFT. CALL LIGHT IN REACH. BED IN LOWEST POSITION. WILL MONITOR UNTIL SHIFT CHANGE.
--- NOTE | 2021-08-28 05:21 | NUR ---
SHIFT SUMMARY ASSUMED CARE AT 1900. NO ACUTE EVENTS OVERNIGHT. PT AAOX2-3 WITH PERIODS OF FORGETFULNESS BUT EASILY REORIENTED. HOWEVER, EARLIER IN THE SHIFT, PT WAS FRUSTRATED AND USING FOUL LANGUAGE. PT REMAINS IN ROOM AIR, O2 SATS 94% AND HIGHER. PT NOTED WITH FREQUENT COUGH LAST NIGHT, MEDICATED WOTH ROBITUSSIN ORDERED PRN WITH GOOD EFFECT. RUE POWERGLIDE WITH DRESSING INTACT, FLUSHES EASILY BUT NO BLOOD RETURN. HERNÁNDEZ CATHETER PATENT, DRAINING YELLOW URINE VIA GRAVITY. FOAM DRESSING TO SACRAL AREA INTACT. LLE ULCER. LAST NIGHT CBG WAS 166 MG/DL. PT TURNED AND REPOSITIONED OVERNIGHT. BED IS IN LOW POSITION WITH THE CALL LIGHT WITHIN EASY REACH. WILL CONTINUE TO MONITOR.
--- NOTE | 2021-08-28 16:20 | NUR ---
PATIENT A/OX3 THIS SHIFT, SPEECH GARBLED MAKING IT DIFFICULT TO UNDERSTAND AT TIMES. VSS, ON RA. FOAM DRESSING TO COCCYX/LLE REMAIN C/D/I. CLOOD SUGARS STABLE, NO SS INSULIN NEEDED THIS SHIFT. NO ACUTE CHANGES THIS SHIFT. PATIENT CONTINUES TO AWAIT PLACEMENT.
--- NOTE | 2021-08-29 06:45 | NUR ---
SHIFT SUMMARY ASSUMED CARE AT 1900. NO ACUTE EVENTS OVERNIGHT. PT REMAINS ON ROOM AIR, +COUGH, MEDICATED WITH PRN ROBITUSSIN WITH GOOD EFFECT. RUE POWERGLIDE DRESSING INTACT. HERNÁNDEZ CATHETER PATENT, DRAINING URINE VIA GRAVITY. NO OTHER COMPLAINTS VOICED. DRESSING TO SACRUM AND LLE INTACT. BED IN LOW POSITION WITH THE CALL LIGHT WITHIN REACH, BED ALARM ACTIVATED. WILL CONTINUE TO MONITOR.
--- NOTE | 2021-08-29 17:44 | NUR ---
NO ACUTE CHANGES THIS SHIFT. PATIENT NOW HAS A GUARDIAN AND IS AWAITING PLACEMENT. MEDICALLY STABLE. NO IV SITE. TOLERATING MEALS. VERY PLEASANT AND COOPERATIVE WITH CARE.
--- NOTE | 2021-08-29 17:46 | NUR ---
PATIENT A/OX3, TURNIGN Q2 HOURS. VSS, ON RA. BLOOD SUGARS WELL CONTROLLED WITH POK MEDS, NO INSULIN NEEDED THIS SHIFT. PICS TAKEN OF BLE AND BUTTOCKS AND PLACED ON CHART. DRESSING CHANGED TO LLE WOUND. BUTTOCKS IS HEALING, BARRIER CREAM APPLIED. PATIENT CONTINUES TO AWAIT PLACEMENT. POWERGLIDE TO RUE WNL AND SL.
--- NOTE | 2021-08-30 05:57 | NUR ---
SHIFT SUMMARY PT IS AN 86 Y/O MALE, ADMITTED FOR [facility]. HE IS A&O X 2-3, FORGETFUL AT TIMES, BEDREST. VERY [place]. NO C/O PAIN, NAUSEA OR SOB, THOUGH WAS MEDICATED FOR ROBITUSSIN FOR COUGH AT HS. VITAL SIGNS STABLE. LLE WOUND WITH MEPILEX IN PLACE, C/D/I. NO ACUTE CHANGES IN PT CONDITION NOTED DURING THE NIGHT. WILL CONTINUE TO MONITOR AND TREAT PER EMAR UNTIL HAND OFF TO DAY SHIFT RN.
--- NOTE | 2021-08-30 17:23 | NUR ---
SUMMARY PT SITTING UP IN BED WATCHING TV, PT HAS BEEN PLEASANT AND COOPERATIVE WITH CARE, IS [place] BUT MAKES HIS NEEDS KNOWN, ANSWERS MOST QUESTIONS APPROPRIATELY, PT WORKED WITH PHYSICAL THERAPY TODAY, ABLE TO SIT AT THE EDGE OF THE BED AND STAND WITH ASSIST, FAMILY HAS BEEN IN TO VISIT WITH THE PT, NO COMPLAINTS, VSS, WILL CONT TO MONITOR
--- NOTE | 2021-08-31 06:13 | NUR ---
SHIFT SUMMARY PATIENT ALERT AND ORIENTED X2-3. HAD NO COMPLAINTS OF PAIN OR SHORTNESS OF BREATH. MEDICATED PER EMAR FOR COUGH. NO ACUTE ISSUES NOTED. BED IN LOWEST POSITION WITH WHEELS LOCKED AND ALARM ON. CALL LIGHT WITHIN REACH. REPORT GIVEN TO ONCOMING RN.
--- NOTE | 2021-08-31 16:00 | NUR ---
SHIFT SUMMARY PATIENT IS ALERT AND ORIENTED X2. PATIENT HAS BEEN PLEASENT AND COOPERATIVE WITH CARE. PATIENT HAS HAD NO COMPLAINTS OF PAIN, NAUSEA, SOB OR VOMITTING THIS SHIFT. PATIENT HAS HAD NO ACUTE ISSUES THIS SHIFT. PATIENT IS CURRENTLY A PLACEMENT ISSUE. VITAL SIGNS REVIEWED. BED IN LOCKED AND LOWEST POSITION. CALL LIGHT IN PLACE. WILL MONITOR UNTIL SHIFT CHANGE.
[2021-09-01 05:33] LABS: Hematocrit 39.9 % (37.0-53.0); Hemoglobin 12.9 g/dL (13.5-17.5)
[2021-09-01 05:45] LABS: Anion Gap 5 mmol/L (6-16); Blood Urea Nitrogen 26 mg/dL (8-24); Bun/Creatinine Ratio 42.3 (12.0-20.0); CO2, Blood 32 mmol/L (21-32); Calcium, Blood 8.9 mg/dL (8.5-10.1); Chloride, Blood 102 mmol/L (98-108); Creatinine, Blood 0.61 mg/dL (0.60-1.20); Glomerular Filtration Rate >60 (60-); Glucose, Blood 112 mg/dL (70-99); Potassium, Blood 4.9 mmol/L (3.5-5.5); Sodium, Blood 139 mmol/L (136-145)
--- NOTE | 2021-09-01 06:13 | NUR ---
SHIFT SUMMARY PATIENT ALERT AND ORIENTED X3. MEDICATED PER EMAR FOR COUGH. HAD NO COMPLAINTS OF PAIN OR SHORTNESS OF BREATH. NO ACUTE ISSUES NOTED OVERNIGHT. BED IN LOWEST POSITION WITH WHEELS LOCKED AND ALARM ON. CALL LIGHT WITHIN REACH. REPORT GIVEN TO ONCOMING RN.
--- NOTE | 2021-09-01 18:27 | NUR ---
no acute changes this shift, pt has been turned, but wiggles himself back to where he was, states it't uncomfortable to be on his side, no other needs, call light in reach.
--- NOTE | 2021-09-02 05:27 | NUR ---
SHIFT SUMMARY PATIENT ALERT AND ORIENTED X3. HAD NO COMPMLAINTS OF PAIN OR SHORTNESS OF BREATH. NO ACUTE ISSUES NOTED OVERNIGHT. BED IN LOWEST POSITION WITH WHEELS LOCKED AND ALARM ON. CALL LIGHT WITHIN REACH. REPORT GIVEN TO ONCOMING RN.
--- NOTE | 2021-09-02 17:39 | NUR ---
SHIFT SUMMARY PATIENT DENIES PAIN, NAUSEA, AND SHORTNESS OF BREATH. PATIENT IS A LIFT TRANSFER. PATIENT DID WORK WITH PT TODAY. PATIENT WAS ABLE TO STAND PIVOT TRANSFER. PT INFORMED THIS NURSE THAT IF PATIENT WANTS TO, HE CAN STAND PIVOT TRANSFER WITH 2 ASSIST. PATIENT HAD VISIT IN AFTERNOON. HERNÁNDEZ IS PATENT AND DRAINING TO GRAVITY. PATIENT IS EATING AND DRINKING WELL. PATIENT IS PLEASANT AND COOPERATIVE WITH CARE.
--- NOTE | 2021-09-03 04:57 | NUR ---
SHIFT SUMMARY PT IS AAOX2, FORGETFUL AT TIMES , EASYLY REORIENTED .PT IS PLEASANT AND COOPERATIVE WITH CARE. NO ACUTE EVENTS THROUGH THE NIGHT.ALL MEDS WERE GIVEN PER EMAR.HERNÁNDEZ CATHETER PATENT AND DRAINING. POWERGLIDE QUENTIN WITH DRESSING INTACT.BED ALARM ACTIVATED, IN LOWER POSITION AND CALL LIGHT IN EASY REACH. WILL CONTINUE TO MONITOR.
--- NOTE | 2021-09-03 16:09 | NUR ---
SHIFT SUMMARY PATIENT DENIES PAIN, NAUSEA, AND SHORTNESS OF BREATH. PATIENT IS A LIFT TRANSFER MOST OF THE TIME. PATIENT IS ABLE TO OCCASSIONALLY STAND PIVOT TRANSFER WITH PHYSICAL THERAPY. PATIENT IS EATING AND DRINKING WELL. HERNÁNDEZ IS PATENT AND DRAINING TO GRAVITY. PATIENT IS PLEASANT AND COOPERATIVE WITH CARE.
--- NOTE | 2021-09-04 03:24 | NUR ---
BUILDING MAINTENANCE TECHNICIAN SUMMARY AWAKE AT INTERVALS, OCCASIONALY CALLING OUT FROM ROOM FOR STAFF TO COME IN FOR PERSONAL NEEDS. ALTHOUGH ABLE TO REPOSITION SELF, WAS ASSISTED INTERMITTENTLY BY STAFF. HERNÁNDEZ DRAINING DARK [place]. AT HS REQUESTED "ROBITUSSEN" AND AFTER HAVING TAKEN IT, WENT TO SLEEP FOR SEVERAL HOURS UNTIL HE CALED OUT AGAIN FOR HELP TURNING UP THE HEAT IN THE ROOM AND RECOVERING HIM WITH SHEET AND BLANKET HE WAS COLD. HR LOW HUNDREDS, HOB ELEVATED FOR COMFORT. CALL LIGHT IN REACH. RESTING QUIETLY AT TIME OF THIS WRITING.
--- NOTE | 2021-09-04 17:03 | NUR ---
SHIFT NOTE THIS AM PT WAS VERY ANGRY SHOUTING AT STAFF, PT WAS NOTED TO HAVE A PAIR OF SEWING SCISSORS IN BEDSIDE BELONGINGS THAT WERE WITHIN HIS REACH, SCISSORS WERE REMOVED TO MAINTAIN PT AND STAFF SAFETY. BLOOD GLUCOSE CHECKS CHANGED TO BID TODAY. PT REMAINS IN NEED OF SNF PLACEMENT NO AVAILABLE BEDS TODAY. PT DID CALM DOWN IN THE AFTERNOON AND WAS VERY PLEASANT T/O THE END OF THE DAY, FAMILY WAS ALSO IN TO VISIT HIM. VSS. PT DENIES SOB OR CP
--- NOTE | 2021-09-05 04:24 | NUR ---
SHIFT SUMMARY PATIENT HAD NO ACUTE CHANGES OBSERVED. AXOX 2-3 WITH HX OF DEMENTIA. BEDREST AND EXTREME ORUTSARARMIUT. HERNÁNDEZ PATENT AND DRAINING TO GRAVITY. PATIENT REQUESTED ROBITUSSIN, 1O mL GIVEN PER EMAR. CBG BID CHECK 150. POWERGLIDE QUENTIN INTACT. VSS/AFEBRILE. DENIES PAIN, SOB, AND N/V. TAKES MEDICATION WHOLE WITH WATER. CALL LIGHT IN REACH. BED IN LOWEST POSITION. WILL CONTINUE TO MONITOR UNTIL DAY SHIFT NURSE ASSUMES CARE.
--- NOTE | 2021-09-05 08:00 | NUR ---
pt laying in bed awake a/ox3, very [place], pleasnant and cooperative with care, follows commands well, denies pain, lungs are dim t/o, resp even and unlabored, on r/a, no cough noted, hrr, no edema noted, cap refill <3sec, vs stable, afebrile, iv is power glide to [place], site is clear and patent, but doesn't draw, btx4, abd flat soft nontender, voids via christian cath draining clear yellow urine, skin frail mepilex on coccyx, pt scoots to back everytime he is turned, maew, general weakness, is bed rest, derek, call light in reach.
--- NOTE | 2021-09-05 18:08 | NUR ---
Pt has had an uneventful day, he does refuse to be turned, family even attempted to get him to and he refused, no acute changes or needs this shift. call light in reach.
--- NOTE | 2021-09-06 04:00 | NUR ---
SHIFT SUMMARY NO ACUTE CHANGES TO PT CONDITION DURING THIS SHIFT. PT HAS CALL LIGHT WITHIN REACH. PT HAS NOT NEEDED ANY ASSISTANCE THIS SHIFT OTHER THAN TO CHANGE OUT HIS BED COVERINGS. WILL CONTINUE TO MONITOR HIM.
--- NOTE | 2021-09-06 17:45 | NUR ---
SHIFT SUMMARY 86 Y MALE ADMITTED WITH ACUTE KIDNEY INJURY. PT IS A&O, PLEASANT AND COOPERATIVE WITH CARE TODAY. PT IS DETERMINED TO GET UP OUT OF BED AND "EXERSIZE" WITH PT DAILY, DISCUSSED WITH PT AND DETERMINED THAT PT IS ONLY SCHEDULED FOR 1XWEEK PT. PT EXPRESSED FRUSTRATION WITH THIS AND STATES THAT HE NEEDS TO ET UP DAILY AND WALK AND HE "WAS WALKING UP UNTIL THE DAY I GOT IN HERE". PT WAS ABLE TO GET UP IND TO EDGE OF BED AND DANGLE FEET AND TOLERATED WELL. PT DID SOME EXERSIZE IN BED AND TOELRATED WELL. NO OTHER CHANGES TO REPROT.
--- NOTE | 2021-09-07 05:51 | NUR ---
SHIFT SUMMARY A/O, ABLE TO MAKE NEEDS KNOWN. COOPERATIVE WITH CARE. MULTIPLE REQUESTS FROM STAFF T/O SHIFT. NO ACUTE CHANGES NOTED OVERNIGHT. VSS/AFEBRILE. DRSG CHANGES TO COCCYX X2 AND LEFT POSTERIOR TAYLOR X1. HERNÁNDEZ PATENT, SECURED AND DRAINING TO GRAVITY. CONTINUES TO AWAIT PLACEMENT. BED IN LOWEST POSITION. REPORT TO ONCOMING RN.
--- NOTE | 2021-09-07 17:41 | NUR ---
SHIFT SUMMARY 86 Y MALE ADMITTED WITH ACUTE KIDNEY INJURY. PT IS A&O, PLEASANT AND COOPERATIVE WITH CARE TODAY. ENCOURAGED BED MOBILITY AND EXERSIZE TODAY, PT TOELRATED WELL. NO OTHER CHANGES TO REPROT.
--- NOTE | 2021-09-08 03:06 | NUR ---
SHIFT SUMMARY A/O, ABLE TO MAKE NEEDS KNOWN. COOPERATIVE WITH CARE. APPEARED TO REST WELL OVERNIGHT. NO ACUTE CHANGES NOTED. HERNÁNDEZ SECURED, PATENT AND DRAINING TO GRAVITY. CONTINUES TO AWAIT PLACEMENT. BED IN LOWEST POSITION. CALL LIGHT AND BELONGINGS WITHIN REACH. REPORT TO ONCOMING RN.
[2021-09-08 05:10] LABS: Hematocrit 41.1 % (37.0-53.0); Hemoglobin 13.1 g/dL (13.5-17.5); Mean Corpuscular HGB 29.5 pg (26.0-34.0); Mean Corpuscular HGB Conc 31.9 g/dL (31.5-36.5); Mean Corpuscular Volume 93 fL (80-100); Mean Platelet Volume 12.8 fL (9.1-12.4); Platelet Count 124 K/mm3 (150-400); RDW Coefficient Variation 15.8 % (11.7-14.2); RDW Standard Deviation 53.9 fL (35.1-46.3); Red Blood Cell Count 4.44 M/mm3 (4.30-5.90); White Blood Cell Count 6.33 K/mm3 (4.00-11.30)
[2021-09-08 05:55] LABS: Anion Gap 5 mmol/L (6-16); Blood Urea Nitrogen 27 mg/dL (8-24); Bun/Creatinine Ratio 38.2 (12.0-20.0); CO2, Blood 30 mmol/L (21-32); Calcium, Blood 8.7 mg/dL (8.5-10.1); Chloride, Blood 105 mmol/L (98-108); Creatinine, Blood 0.71 mg/dL (0.60-1.20); Glomerular Filtration Rate >60 (60-); Glucose, Blood 120 mg/dL (70-99); Potassium, Blood 4.4 mmol/L (3.5-5.5); Sodium, Blood 140 mmol/L (136-145)
--- NOTE | 2021-09-08 18:26 | NUR ---
SHIFT SUMMARY 86 Y MALE ADMITTED WITH ACUTE KIDNEY INJURY. PT IS A&O, PLEASANT AND COOPERATIVE WITH CARE TODAY. PT IN TO [facility] TODAY AND PT WAS ABLE TO GET UP TO STANDING WITH MINIMAL ASSIST AND TOLERATE WELL. PLANS TO CONT TO ENOURAGE MOBILITY AND HAVE PT UP TO BEDSIDE/ CHAIR AT LEAST 1X DAILY ESTABLISHED. NO OTHER CHANGES TO REPROT.
--- NOTE | 2021-09-09 04:44 | NUR ---
SHIFT SUMMARY PT SLEPT OFF AND ON THIS EVENING. A/O WITH SOME VERY MILD INTERMITTENT CONFUSION. WAS ABLE TO LET NEEDS BE KNOWN. HERNÁNDEZ CATHETER PATENT AND DRAINING. DRESSING TO COCCYX C/D/I. BLE'S DISCOLORED BLACK. PT HAS HX OF PVD. PT CONTINUES TO AWAIT PLACEMENT DUE TO SOME ISSUES WITH MEDICAID. NO ACUTE CHANGES THIS EVENING. VITAL SIGNS STABLE.
--- NOTE | 2021-09-09 16:57 | NUR ---
SHIFT SUMMARY 86 Y MALE ADMITTED WITH ACUTE KIDNEY INJURY. PT IS A&O, PLEASANT AND COOPERATIVE WITH CARE TODAY. PT UP TO STANDING AND AMBULATE IN ROOM W/ PT THIS MORNING AND TOLERATED WELL. PT DID C/O CP THIS AFTERNOON, MD NOTIFIED AND NITRO GIVEN, LABS DRAWN AND EKG DONE. MD IN TO REVIEW RESULTS AND ASSESS PT AT BEDSIDE, NO NEW ORDERS AND PT REPORTS PAIN RESOLVED AFTER NITRO. PLANS FOR PT TO POSSIBLY D/C TO [facility] DISCCUSSED WITH PT & FAMILY. NO OTHER CHANGES TO REPROT.
--- NOTE | 2021-09-09 23:59 | NUR ---
CALLED HOSPITALIST INFORMED HIM OF TROPONIN LAB OF 0.529. INFORMED CHARGE OF LAB. NO NEW ORDERS. WILL CONTINUE TO MONITOR
--- NOTE | 2021-09-10 04:05 | NUR ---
SHIFT SUMMARY ADMITTED FOR MICHAEL. FULL CODE. PLAN IS FOR DC TO REHAB WHEN STABLE. TROPONIN FOUND ELEVATED THIS SHIFT 0.529, HOSPITALIST INFORMED. PT DENIES CHEST PAIN AT THIS TIME. HERNÁNDEZ CATHETER IN PLACE. HE IS ON ELIQUIS. ULCER ON SACRUM COVERED IN MEPILEX. I NOTE THAT HE SEEMS CONFUSED. HE HAS A POWERGLIDE IN RUE. HE IS A PIVOT TO BSC VS. BEDPAN. PHYSICAL THERAPY IS ASSISTING WITH THIS PT.
[2021-09-10 08:29] LABS: Albumin, Blood 2.8 g/dL (3.4-5.0); Anion Gap 7 mmol/L (6-16); Blood Urea Nitrogen 27 mg/dL (8-24); Bun/Creatinine Ratio 37.2 (12.0-20.0); CO2, Blood 32 mmol/L (21-32); Calcium, Blood 8.8 mg/dL (8.5-10.1); Chloride, Blood 105 mmol/L (98-108); Creatinine, Blood 0.73 mg/dL (0.60-1.20); Glomerular Filtration Rate >60 (60-); Glucose, Blood 102 mg/dL (70-99); Phosphorus, Blood 3.3 mg/dL (2.5-4.9); Potassium, Blood 4.1 mmol/L (3.5-5.5); Sodium, Blood 144 mmol/L (136-145); Troponin I 0.386 ng/mL (0.000-0.040)
[2021-09-10 08:33] LABS: CHOL/HDL RATIO 3.8; Cholesterol 173 mg/dL (50-200); HDL Cholesterol 45 mg/dL (>39); LDL/HDL RATIO 2.4; Low Density Lipoprotein Chol 109 mg/dL (0-110); Triglycerides 93 mg/dL (30-160); Very Low Density Lipoprot Chol 18 mg/dL (6-32)
[2021-09-10 09:49] LABS: Hematocrit 42.3 % (37.0-53.0); Hemoglobin 13.4 g/dL (13.5-17.5); Mean Corpuscular HGB 28.8 pg (26.0-34.0); Mean Corpuscular HGB Conc 31.7 g/dL (31.5-36.5); Mean Corpuscular Volume 91 fL (80-100); RDW Coefficient Variation 15.7 % (11.7-14.2); RDW Standard Deviation 52.6 fL (35.1-46.3); Red Blood Cell Count 4.65 M/mm3 (4.30-5.90); White Blood Cell Count 5.15 K/mm3 (4.00-11.30)
[2021-09-10 10:26] LABS: Mean Platelet Volume 13.7 fL (9.1-12.4); Platelet Count 151 K/mm3 (150-400)
--- NOTE | 2021-09-10 16:21 | NUR ---
patient gave consent to pass medication.
--- NOTE | 2021-09-10 18:33 | NUR ---
PATIENT IS ALERT AND ORIENTED WITH INTERMITTENT CONFUSION. HIS FAMILY VISITED HIM TODAY. A NEW HERNÁNDEZ CATHETER WAS PLACED THIS AFTERNOON. NO C/O CP THIS SHIFT. THE DIESEL RETROFIT INSTALLER WAS CONSULTED AND SAW THE PATIENT THIS MORNING. WOUND CARE COMPLETE. PATIENT REFUSED TO WORK WITH PT TODAY. WILL CONTINUE TO MONITOR
--- NOTE | 2021-09-11 04:11 | NUR ---
SHIFT SUMMARY ADMITTED FOR MICHAEL. FULL CODE. PLAN IS FOR DC TO SNF. HE IS ON ELIQUIS. CARDIOLOGY CONSULT ON PREVIOUS SHIFT RECOMMENDING MEDICAL MANAGEMENT OF CARDIOVASCULAR ISSUES. HERNÁNDEZ IN PLACE. POWERGLIDE IN RUE. MEPILEX ON SACRUM. HX: SEVERE PVD, CAD.
--- NOTE | 2021-09-11 17:01 | NUR ---
SHIFT SUMMARY THE PATIENT IS ALERT AND ORIENTED X3 MILD CONFUSION AT TIMES. PLEASANT AND COOPERATIVE WITH CARE. STUDENT NURSE ODILON ASSISTED WITH CARE THIS SHIFT WITH PATIENT'S PERMISSION. PATIENT IS ON RA. NO TELE. HERNÁNDEZ DRAINING YELLOW URINE TO GRAVITY. PATIENT HAD PRN COUGH SYRUP ONCE THIS SHIFT. MEPILIX DRESSING TO COCCYX AND LEFT CALF CHANGED THIS SHIFT. PEDAL PULSES ASSESSED VIA DOPPLER. VSS. NO ACUTE CHANGES THIS SHIFT. THIS NURSE WILL CONTINUE TO CARE FOR THE PATIENT UNTIL SHIFT REPORT IS GIVEN TO ONCOMING NURSE.
--- NOTE | 2021-09-12 06:21 | NUR ---
SHIFT SUMMARY: PT IS A/OX3. THERE WERE A FEW OCCURRENCES HE WOULD YELL OUT AND NOT USE HIS CALL LIGHT. HE HAD TWO MEPILEX DRESSINGS: ONE TO HIS COCCYX AND TO THE LEFT CALF (BOTH STAGE II P.U.); DRESSINGS ARE CDI. HERNÁNDEZ IS PATENT AND OUTPUT IS YELLOW AND CLEAR. CALL LIGHT IS WITHIN REACH.
--- NOTE | 2021-09-12 16:45 | NUR ---
SHIFT SUMMARY THE PATIENT IS ALERT AND ORIENTED X3 THIS SHIFT. PLEAST AND COOPERATIVE WITH CARE. HERNÁNDEZ PATENT DRAINING YELLOW URINE TO GRAVITY. THE PATIENT WORKED WITH THERAPY THIS SHIFT. PATIENT HAD A BED BATH THIS SHIFT. PRN COUGH SYRUP GIVEN ONCE THIS SHIFT. NO ACUTE CHANGES. VSS. CALL LIGHT WITHIN REACH. THIS NURSE WILL CONTINUE TO CARE FOR THE PATIENT UNTIL SHIFT REPORT IS GIVEN TO ONCOMING NURSE.
--- NOTE | 2021-09-13 05:26 | NUR ---
SHIFT SUMMARY: PT IS A/OX3. HE WAS VERY PLEASANT AND CALM DURING THE NOC SHIFT. HERNÁNDEZ IS PATENT AND OUTPUT IS YELLOW AND CLEAR. SACRAL MEPILEX DRESSING WAS CDI AND LEFT CALF DRESSING WAS CHANGED THIS SHIFT.
--- NOTE | 2021-09-14 05:08 | NUR ---
SHIFT SUMMARY: PT IS A/OX3. HIS HERNÁNDEZ REMAINS PATENT AND OUTPUT IS YELLOW AND CLEAR. MEPILEX DRESSING TO SACRUM AND LEFT LEG ARE CDI. PT DID NOT HAVING ANY YELLING OUT EPISODES THIS SHIFT AND USED HIS CALL LIGHT.
--- NOTE | 2021-09-14 18:42 | NUR ---
SHIFT SUMMARY: NO ACUTE EVENTS. DENIED PAIN. HERNÁNDEZ DRAINING ADEQUATE URINE. CBG WNL. DECLINED TO GET OOB TO CHAIR FOR ANY MEAL, DID NOT WANT TO BE REPOSITIONED. AWAITING PLACEMENT.
[2021-09-15 05:37] LABS: Anion Gap 6 mmol/L (6-16); Blood Urea Nitrogen 29 mg/dL (8-24); Bun/Creatinine Ratio 42.5 (12.0-20.0); CO2, Blood 33 mmol/L (21-32); Calcium, Blood 8.5 mg/dL (8.5-10.1); Chloride, Blood 102 mmol/L (98-108); Creatinine, Blood 0.68 mg/dL (0.60-1.20); Glomerular Filtration Rate >60 (60-); Glucose, Blood 147 mg/dL (70-99); Phosphorus, Blood 3.1 mg/dL (2.5-4.9); Potassium, Blood 3.9 mmol/L (3.5-5.5); Sodium, Blood 141 mmol/L (136-145)
[2021-09-15 06:01] LABS: Hematocrit 39.1 % (37.0-53.0); Hemoglobin 12.6 g/dL (13.5-17.5); Mean Corpuscular HGB 28.9 pg (26.0-34.0); Mean Corpuscular HGB Conc 32.2 g/dL (31.5-36.5); Mean Corpuscular Volume 90 fL (80-100); Mean Platelet Volume 9.2 fL (9.1-12.4); Platelet Count 147 K/mm3 (150-400); RDW Standard Deviation 50.1 fL (35.1-46.3); Red Blood Cell Count 4.36 M/mm3 (4.30-5.90); White Blood Cell Count 4.03 K/mm3 (4.00-11.30)
--- NOTE | 2021-09-15 07:53 | NUR ---
C/O WEAKNESS AND CONFUSION. A&O X 2-3. CHRONIC HERNÁNDEZ. BILAT LOWER LEGS BLACK DUE TO EXTENSIVE PVD. 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 ALSO HAD NSTEMI HERE ON 09-09-21. SACRAL WOUND WITH MEPILEX. AWAITING BED AT SNF.
--- NOTE | 2021-09-15 17:57 | NUR ---
Patient was alert and orient, he was able to express his needs by using the call light. Patient used a christian for urine and was continentof bowel. He had 2LBM today. Patient was compliant with taking scheduled meds, and dressing was changed on coccxy after each BM. Patient had no complaints of pain and did not request any prns. Continue to monitor and take care of this patient until a bed is ready at a care home facility
--- NOTE | 2021-09-16 06:11 | NUR ---
PATIENT SLEPT MAJORIOTY OF THE NIGHT. TOOK ALL SCHEDULED MEDICATIONS. WHEN HE WAKES UP, HE SEEMS VERY CONFUSED TO WHERE HE IS AND MUMBLES INCOHERENTLY FOR A BRIEF TIME. HAS ORDER FOR BID GLUCOSE CHECKS BUT NO INSULIN COVERAGE AVAILABLE IN OCT IF NEEDED. STILL AWAITING BED PLACEMENT AT A SNF.
--- NOTE | 2021-09-16 07:33 | NUR ---
CARROLL mcguire handoff of patient care from CARROLL Jones Patient was in bed with eyes closed. He appered to be asleep and in no distress
--- NOTE | 2021-09-16 17:48 | NUR ---
Patient was alert and orient, he was able to express his needs. He was continent of bowel and used christian for urine. He did have a BM today. His appetite was fair for all meals. He had no complaints of pain but complained of cough. He did recv prn Robitussin. Patient remained very pleasant and cooperative. He was compliant with taking his medications.
--- NOTE | 2021-09-17 06:37 | NUR ---
PATIENT WAKES UP THROUGHOUT THE NIGHT THINKING HE HAS SLEPT THROUGH ALL OF HIS MEALS. iTTAKES HIM SOME TIME TO BECOME ORIENTED TO TIME. HIS SPEECH IS SLOWED AND HARD TO UDNERSTAND AT TIMES. NO NEW COMPLIANTS AT THIS TIME. HE IS STILL AWAITING A BED AT A SNF.
--- NOTE | 2021-09-17 09:38 | NUR ---
CARROLL recsirisha handoff of patient care this morning at 0645. Patient was in room and in bed sleeping. He appeared in no distress
--- NOTE | 2021-09-17 19:12 | NUR ---
Patient was alert and orient, he continues to wait on skilled facility. He was able to express his needs. Used christian for urine and continent for bowel. Patient had LBM today. He was compliant with meds and had no complaints of pain
--- NOTE | 2021-09-18 04:16 | NUR ---
SHIFT SUMMARY ADMITTED FOR MICHAEL. FULL CODE. PLAN IS FOR PLACEMENT. CHRONIC HERNÁNDEZ IN PLACE. HE IS CONFUSED/FORGETFUL @ TIMES. HE IS [place]. HE IS ON ELIQUIS. 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 HX OF DEMENTIA. NO NEW CONCERNS THIS SHIFT
--- NOTE | 2021-09-18 17:10 | NUR ---
PT IS A/OX3, PLEASANT AND COOPERATIVE. THE PT IS [place]. THE PT DENIED ANY PAIN TODAY. PT APPEARS TO BE BREATHING EASILY ON RA AT THIS TIME. THE PT DECLINED TO GET UP TO THE CHAIR THIS AM. PT WAS GIVEN A BED BATH TODAY A MEPILEX DRESSING WAS PLACED ON HIS COCCYX FOR PRESSURE SORE PREVENTION. CALL LIGHT IN REACH. WILL CONTINUE TO MONITOR AND ASSESS FOR CHANGES
--- NOTE | 2021-09-19 06:38 | NUR ---
SHIFT SUMMARY PATIENT ALERT AND ORIENTED X3. MEDICATED PER EMAR FOR COUGH. HAD NO COMPLAINTS OF PAIN OR SHORTNESS OF BREATH. NO ACUTE ISSUES NOTED OVERNIGHT. CALL LIGHT WITHIN REACH. REPORT GIVEN TO ONCOMING RN.
--- NOTE | 2021-09-19 18:15 | NUR ---
ALERT. CONFUSED AT TIMES. NEW PICTURES TAKEN OF BLE AND BUTTOCK. HX PVD. VERY [place]. COOPERATIVE. PLEASANT. DOES NOT USE CALL LIGHT BUT IS ABLE TO MAKE NEEDS KNOWN. UNLABORED RESPIRATIONS. REDNESS RT AXILLARY ALMOST GONE. SCROTAL AREA RED. CREAM TO BOTH AREAS. AWAITING PLACEMENT. [facility]
[2021-09-20 05:36] LABS: Anion Gap 6 mmol/L (6-16); Blood Urea Nitrogen 24 mg/dL (8-24); Bun/Creatinine Ratio 34.2 (12.0-20.0); CO2, Blood 31 mmol/L (21-32); Calcium, Blood 8.6 mg/dL (8.5-10.1); Chloride, Blood 106 mmol/L (98-108); Glomerular Filtration Rate >60 (60-); Glucose, Blood 105 mg/dL (70-99); Potassium, Blood 3.8 mmol/L (3.5-5.5); Sodium, Blood 143 mmol/L (136-145)
--- NOTE | 2021-09-20 05:48 | NUR ---
SHIFT SUMMARY PATIENT ALERT AND ORIENTED X3. HAD NO COMPLAINTS OF PAIN OR SHORTNESS OF BREATH. MEDICATED PER EMAR FOR COUGH. NO ACUTE ISSUES NOTED. BED IN LOWEST POSITION WITH WHEELS LOCKED AND ALARM ON. CALL LIGHT WITHIN REACH. REPORT GIVEN TO ONCOMING RN.
--- NOTE | 2021-09-20 17:39 | NUR ---
SHIFT SUMMARY PT A&O X2-3 T/O SHIFT. PT UPSET T/O SHIFT, STATED PT TOLD HIM TODAY HE WILL NOT BE ABLE TO GET UP AGAIN ON HIS OWN. PT BECAME UPSET AND THREW PILLOWS @ STAFF. PT REDIRECTED W/ OUT FURTHER CONFLICT. PT RESTED IN BED T/O SHIFT AND ENJOYED TV. VSS. CALL LIGHT W/IN REACH.
--- NOTE | 2021-09-21 04:26 | NUR ---
SHIFT SUMMARY - NO ACUTE CHANGES THIS SHIFT. PT IS ABLE TO ASSIST WITH TURNS FROM SIDE TO SIDE. MEPILEX TO COCCYX. CARE MANAGEMENT NOTE STATES PT TO GO HOME WITH [facility] VS HH WITH FAMILY - TO BE DETERMINED YET. PT IS VERY [place], BUT IS ABLE TO MAKE HIS NEEDS KNOWN. PT DENIED ANY PAIN DURING THE NIGHT. PT SLEPT FOR APPX 2-3 HOURS TONIGHT. FLUIDS AT BEDSIDE. CALL LIGHT WITHIN REACH.
--- NOTE | 2021-09-21 04:37 | NUR ---
WILL CONTINUE TO MONITOR PATIENT UNTIL AM SHIFT CHANGE.
--- NOTE | 2021-09-21 16:51 | NUR ---
SHIFT SUMMARY NO ACUTE CHANGES THIS SHIFT. PT CURRENTLY AWAITING TO EITHER GO HOME ON HOSPICE OR HOME HEALTH, IT HAS YET TO BE DETERMINED WHICH ONE. PT HAS MOMENTS OF FORGETFULNESS BUT IS ABLE TO MAKE HIS NEEDS KNOWN. PT IS ALSO VERY HARD OF HEARING. VSS. WILL REPORT TO ROBBI RN.
--- NOTE | 2021-09-22 06:40 | NUR ---
PATIENT'S ONLY COMPLAINT ALL SHIFT WAS THAT HE WOULD BE EXTREMELY HOT, THEN A FEW HOURS LATER BE EXTREMELY COLD. NO OTHER COMPLAINTS DURING SHIFT. CASE MANAGEMENT IS FIGURING OUT IF HE WILL DC TO A HOSPICE OR HOME WITH HOME HEALTH AT THIS TIME. HIS BLOOD SUGAR CHECKS ARE ONLY ONCE A DAY NOW IN THE MORNING.
--- NOTE | 2021-09-22 17:30 | NUR ---
SHIFT SUMMARY 86 Y MALE ADMITTED ORIGINALLY WITH ACUTE KIDNEY INJURY. PT IS NOW MEDICALLY STABLE AND AWAITING D/C PLANNING FOR PLACEMENT OR HOME WITH OR HOSPICE RESOURCES. PT IS A&O, PLEASANT AND COOPERATIVE WITH CARE. PT HAS REMEAIND IN BED MOST OF TODAY, DE DID SIT UP ON EDGE OF BED TO DANGLE HIS FEET AND DO HIS OWN PERSONAL CARE OF WASHING HIS FACE, SHAVING AND BRUSHING HIS TEETH. PT DOES FREQUENTLY REPOSITION HIMSELF AND CALLS APPROPRIATELY. NO OTHER CHANGES TO REPORT THIS SHIFT
--- NOTE | 2021-09-23 06:30 | NUR ---
PATIENT SEEMED TO FIANLLY GET A GOOD AMOUNT OF REST. HE WAS NOT COMPLAINING OF GOING FROM HOT TO COLD MUCH THIS EVENING. HE WAS NOT WAKING UP CONFUSED TO TIME AT ALL. HE WAS MUCH MORE THANKFUL FOR HELP TODAY. STILLL AWAITING HOSPICE PLACEMENT OR HOME WITH HOME HEALTH.
--- NOTE | 2021-09-23 17:10 | NUR ---
SHIFT SUMMARY PATIENT DENIES PAIN, NAUSEA, AND SHORTNESS OF BREATH. PATIENT IS A LIFT FOR TRANSFERS. HERNÁNDEZ IS PATENT AND DRAINING TO GRAVITY. DRESSING CHANGED ON COCCYX. PATIENT VISITED IN AFTERNOON DUE TO PATIENT NEEDING TO GIVE VERBAL CONSENT FOR AND DAUGTHER TO MAKE DECISIONS WITH INSURANCE. PATIENT IS EATING AND DRINKING WELL. PATIENT IS PLEASANT AND COOPERATIVE WITH CARE.
--- NOTE | 2021-09-23 22:35 | NUR ---
2010 PT LYING IN BED, REPORTS PAIN IN R SIDE OF NECK, ACHES, 6/10, USING WARM COMPRESS, DOES NOT WANT ANY TYLENOL AT THIS TIME, WILL EVAL FOR EFFECT. PT HAS DARK PURPLISH-BROWNISH DISCOLORATION ON LE'S. SHAWANDA WRAPS FOR COMPRESSION ON BILAT LE'S. BILAT HEEL SORES WITH MEPLEX C/D/I AND HEEL PROTECTORS. SORE OF BOTTOM WITH MEPLEX C/D/I. HERNÁNDEZ WITH DARK YELLOW URINE. NO OTHER APPARENT SIGNS OF DISTRESS. CALL LIGHT IS IN REACH.
--- NOTE | 2021-09-23 23:56 | NUR ---
2200 PT LYING IN BED, AWAKE, WATCHING TV. NO APPARENT SIGNS OF DISTRESS. CALL LIGHT IS IN REACH.
--- NOTE | 2021-09-23 23:56 | NUR ---
PT LYING IN BED, EYES CLOSED, APPEARS TO BE RESTING. BREATHING IS EVEN, UNLABORED. NO APPARENT SIGNS OF DISTRESS. CALL LIGHT IS IN REACH.
--- NOTE | 2021-09-24 01:28 | NUR ---
PT LYING IN BED, EYES CLOSED, APPEARS TO BE RESTING. BREATHING IS EVEN, UNLABORED. NO APPARENT SIGNS OF DISTRESS. CALL LIGHT IS IN REACH.
--- NOTE | 2021-09-24 04:03 | NUR ---
PT IS AAO X 4, ON RA. PT REPORTS NECK PAIN R SIDE, USED WARM COMPRESS, DID NOT WANT MEDS FOR IT BUT DID REQUEST ROBITUSSIN AT HS. HERNÁNDEZ WITH DARK YELLOW URINE. PT HAS WOUND ON BOTTOM WITH MEPLEX C/D/I, SORES ON HEELS WITH MEPLEX C/D/I AND HEEL PROTECTORS. DARK PURPLISH=BROWNISH DISCOLORATION ON LE'S.
--- NOTE | 2021-09-24 05:31 | NUR ---
PT LYING IN BED, EYES CLOSED, APPEARS TO BE RESTING. BREATHING IS EVEN, UNLABORED. NO APPARENT SIGNS OF DISTRESS. CALL LIGHT IS IN REACH. NO OTHER CHANGES THIS SHIFT.
--- NOTE | 2021-09-24 18:24 | NUR ---
PT ALERT AND ORIENTED TODAY, PLEASANT AND COOPERATIVE WITH CARE. DENIES PAIN, NAUSEA AND SOB. HERNÁNDEZ IS PATENT AND DRAINING, ATTENDS IN PLACE. DRESSING TO COCCYX CHANGED TODAY. HEEL PROTECTORS IN PLACE. NO ACUTE CHANGES NOTED THIS SHIFT, WILL CONTINUE TO MONITOR AND REPORT TO ONCOMING RN
--- NOTE | 2021-09-25 05:06 | NUR ---
SHIFT SUMMARY NO ACUTE CHANGES THIS SHIFT. PT SLEPT NEARLY ALL OF THIS SHIFT AND LITTLE INTERACTION WAS HAD WITH HIM. HE WAS VERY PARTICULAR ABOUT WHERE HE WANTED HIS BEDSIDE TABLE AND HE SPENT ABOUT 5 MINUTES GETTING IT IN THE EXACT RIGHT POSITION. THIS NURSE DID NOT CHANGE THE MEPILEX OF COCCYX OR HEELS, BOTH APPEAR TO BE CLEAN AND DRY WITH NO ISSUES.
--- NOTE | 2021-09-25 17:10 | NUR ---
Shift Summary A/Ox3, extremely [place]. Slightly slurred speech. Tachypneic at times with shallow breathing, sats maintained above 90%. Patient has a stage 2 decub, turn and reposition as patient tolerates. C/O 4/10 chronic pain to BLE, R > L. Pedal pulses auscultated via doppler, both present. Mepilex to sacrum changed. C/O mild nonproductive cough and sore throat; ROSSY Dang is aware and was at bedside during conversation. SHIELA Cifuentes is on EMAR. After repositioning, patient requests to lay straight in bed again. Education given regarding needs to offload from side to side to minimize skin breakdown and improve blood flow to high risk areas. WCTM.
--- NOTE | 2021-09-26 05:47 | NUR ---
SHIFT SUMMARY 86 YR M ADMITTED ON 07/25/21 FOR MICHAEL. FULL CODE. MICHAEL ISSUE HAS BEEN DEALT WITH AND IS NO LONGER AN ACUTE ISSUE. THIS PT IS WAITING FOR PLACEMENT. HE IS CONFUSED AT TIMES AND HIS SPEECH IS SLURRED AND SOMETIMES HARD TO UNDERSTAND. HE IS GRUMPY AT TIMES AND PLEASANT AT OTHER TIMES. HE USES CALL LIGHT APPROPRIATELY.
--- NOTE | 2021-09-26 18:28 | NUR ---
SHIFT SUMMARY; PATIENT REMAINS ON BEDREST THROUGHOUT DAY. HE USES BEDPAN WHEN NEEDED. LILIANE CALLS REPEATEDLY AND FORGETS WHY HE CALLS. HERNÁNDEZ CATHETER REMAINS IN PLACE. [facility] FROM [facility] CALLS AND [facility] WILL ADMIT THIS PATIENT TOMORROW AT 1PM AT HIS HOME. WILL REMAIN AVAILABLE FOR THIS PATIENTN FOR ANY WANTS OR NEEDS UNTIL HAND OFF AT SHIFT CHANGE.
--- NOTE | 2021-09-27 04:56 | NUR ---
SHIFT SUMMARY 86 YR M ADMITTED ON 07/25/21 FOR MICHAEL. FULL CODE. MICHAEL HAS BEEN RESOLVED AND IS NO LONGERAN ACUTE MATTER. PT IS WAITING FOR PLACEMENT. IT APPEARS IF HE WILL BE DISCHARGED HOME THIS THURSDAY TO HIS SON'S HOME. HIS SPEECH IS SLURRED AT TIMES MAKING IT HARD TO UNDERSTAND HIM, BUT HE TOLD ME STORIES ABOUT HIS HOME AND FAMILY AND ONCE HE GOT TALKING, HIS SPEECH BECAME MUCH MORE COHERANT. HE IS ALERT AND ORIENTED, COOPERATIVE, AND USES THE CALL LIGHT APPROPRIATELY.
--- NOTE | 2021-09-27 17:49 | NUR ---
SHIFT SUMMARY; PATIENT REMAINS BEDBOUND. HE USES CALL LIGHT TO MAKE HIS NEEDS KNOWN AND IS COOPERATIVE WITH CARE. HE IS TURNED EVERY 2 HOURS TO ASSIST IN PREVENTING SKIN BREAKDOWN. HE TAKES HIS MEDICATIONS WHOLE WITH WATER WITHOUT DIFF. HE USES A BEDPAN NEEDED AND ALSO HAS A CHRONIC HERNÁNDEZ CATHETER THAT IS NOTED TO HAVE DARK MARLI URINE. VITAL SIGNS ARE WNL. LUNGS ARE CLEAR AT THIS TIME. 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
--- NOTE | 2021-09-28 03:06 | NUR ---
SHIFT SUMMARY PATIENT HAD NO ACUTE CHANGES OBSERVED. AXOX 2-3 WITH HX OF DEMENTIA. BEDBOUND AND NO IV ACCESS. VSS/AFEBRILE. DENIES CHEST PAIN, SOB, AND N/V. HERNÁNDEZ PATENT AND DRAINING TO GRAVITY. USES BEDPAN WITH ASSIST. CALL LIGHT IN REACH. BED IN LOWEST POSITION. WILL CONTINUE TO MONITOR UNTIL DAY SHIFT NURSE ASSUMES CARE.
[2021-09-28] MEDS ORDERED: FLUTICASONE-SA1 EAC1 INH (11:48)
[2021-09-28] MEDS ORDERED: GLIP2.5ER PO (11:50)
[2021-09-28] MEDS ORDERED: ELIQUIS5 M2 PO (11:50)
[2021-09-28] MEDS ORDERED: NYSTRIT TOP (11:51)
[2021-09-28] MEDS ORDERED: MIRALAX17 GM PO (11:51)
[2021-09-28] MEDS ORDERED: ARTIFICIAL TEAR15 M2 BOTHEYES (11:52)
--- NOTE | 2021-09-28 12:21 | NUR ---
DISCHARGE PT DISCHARGED HOME TO [facility]IA [facility] PAY[facility]ACKET [facility] WITH [facility]
== END 2021-09-28 12:08 | disposition home health service (06) | DRG 673 ==
LOC: ER 17:07 → MEDS 21:37 → PCU 08-01 16:22 → MEDS 08-07 13:37
PROVIDERS: Family Medicine; Internal Medicine; Internal Medicine Nephrology; Student in an Organized Health Care Education/Training Program; ADMIT Internal Medicine
PROC: 04CM3ZZ Extirpation of Matter from Right Popliteal Artery, Percutaneous Approach (ICD-10-PCS; principal; 2021-08-01)
PROC: 047M3Z1 Dilation of Right Popliteal Artery using Drug-Coated Balloon, Percutaneous Approach (ICD-10-PCS; 2021-08-01)
PROC: 047P3ZZ Dilation of Right Anterior Tibial Artery, Percutaneous Approach (ICD-10-PCS; 2021-08-01)
PROC: 047U3ZZ Dilation of Left Peroneal Artery, Percutaneous Approach (ICD-10-PCS; 2021-08-01)
PROC: B41DYZZ Fluoroscopy of Aorta and Bilateral Lower Extremity Arteries using Other Contrast (ICD-10-PCS; 2021-08-01)
DX: N17.9 Acute kidney failure, unspecified (principal); I21.4 Non-ST elevation (NSTEMI) myocardial infarction; G93.41 Metabolic encephalopathy; N39.0 Urinary tract infection, site not specified; I50.32 Chronic diastolic (congestive) heart failure; E87.2 Acidosis; Z20.822 Contact with and (suspected) exposure to COVID-19; L97.829 Non-pressure chronic ulcer of other part of left lower leg with unspecified severity; E11.51 Type 2 diabetes mellitus with diabetic peripheral angiopathy without gangrene; F03.90 Unspecified dementia, unspecified severity, without behavioral disturbance, psychotic disturbance, mood disturbance, and anxiety; I48.0 Paroxysmal atrial fibrillation; K21.9 Gastro-esophageal reflux disease without esophagitis; E11.9 Type 2 diabetes mellitus without complications; I25.10 Atherosclerotic heart disease of native coronary artery without angina pectoris; Z95.5 Presence of coronary angioplasty implant and graft; I27.20 Pulmonary hypertension, unspecified; Z98.890 Other specified postprocedural states; Z79.899 Other long term (current) drug therapy; N25.89 Other disorders resulting from impaired renal tubular function; L89.152 Pressure ulcer of sacral region, stage 2; N40.0 Benign prostatic hyperplasia without lower urinary tract symptoms; I70.248 Atherosclerosis of native arteries of left leg with ulceration of other part of lower leg; E88.09 Other disorders of plasma-protein metabolism, not elsewhere classified
CPT/HCPCS: 0241U; 36140; 36415; 37225; 37228; 37232; 51702; 71045; 71046; 74176; 75625; 75716; 75774; 76770; 76937; 80048; 80053; 80061; 80069; 81001; 82803; 82947; 83036; 83605; 83735; 83880; 84145; 84295; 84443; 84484; 85014; 85018; 85025; 85027; 85610; 85730; 87040; 87077; 87086; 87186; 93005; 93010; 93925; 93970; 94640; 94664; 94760; 96365; 96366; 96375; 97110; 97116; 97162; 97166; 97530; 97535; 99152; 99153; 99285-25; A9270; C1714; C1725; C1751; C1760; C1769; C1887; C1894; C2623; C8929; J0696; J1644; J1815; J1885; J2250; J3010; J3475; J7030; J7040; J7050; J7060; J7070; J7512; Q9957; Q9967

== ENCOUNTER → 2021-12-14 | Outpatient (CLI) | payer OTHER ==
[~2021-12-14] MED LIST changes: +ALBU90OI INH; +ARTIFICIAL TEAR15 M2 BOTHEYES; +ATOR80 PO; +Aspir 8181 MG PO; +ELIQUIS5 M2 PO; +FLUT1DIS2 INH; +FLUTICASONE-SA1 EAC1 INH; +Flonase 0.05% N16 GM; +GLIP2.5ER PO; +Isosorbide Mono30 MG PO; +METO50ER PO; +MINOCYCLINE HC100 M2 PO; +MIRALAX17 GM PO; +NYSTRIT TOP; +POTCHL20ER PO
[2021-12-14 16:07] LABS: Anion Gap 2 mmol/L (6-16); Blood Urea Nitrogen 24 mg/dL (8-24); Bun/Creatinine Ratio 36.3 (12.0-20.0); CO2, Blood 41 mmol/L (21-32); Calcium, Blood 8.9 mg/dL (8.5-10.1); Chloride, Blood 99 mmol/L (98-108); Creatinine, Blood 0.66 mg/dL (0.60-1.20); Glomerular Filtration Rate >60 (60-); Glucose, Blood 145 mg/dL (70-99); Magnesium, Blood 1.9 mg/dL (1.6-2.4); Phosphorus, Blood 3.5 mg/dL (2.5-4.9); Potassium, Blood 3.5 mmol/L (3.5-5.5); Sodium, Blood 142 mmol/L (136-145)
== END ==
LOC: LAB 14:11 → LAB SHORT 14:11
PROVIDERS: Internal Medicine Nephrology
DX: N18.30 Chronic kidney disease, stage 3 unspecified (principal); D63.1 Anemia in chronic kidney disease
CPT/HCPCS: 80069; 83735; 85018

== ENCOUNTER → 2022-03-07 | Outpatient (CLI) | payer OTHER ==
[2022-03-07 16:49] LABS: Albumin, Blood 3.3 g/dL (3.4-5.0); Anion Gap 3 mmol/L (6-16); Blood Urea Nitrogen 23 mg/dL (8-24); Bun/Creatinine Ratio 37.3 (12.0-20.0); CO2, Blood 39 mmol/L (21-32); Calcium, Blood 8.8 mg/dL (8.5-10.1); Chloride, Blood 96 mmol/L (98-108); Creatinine, Blood 0.62 mg/dL (0.60-1.20); Glomerular Filtration Rate 92 (60-); Glucose, Blood 153 mg/dL (70-99); Potassium, Blood 3.3 mmol/L (3.5-5.5); Sodium, Blood 138 mmol/L (136-145)
== END | disposition home or self-care (01) ==
LOC: LAB SHORT 15:16 → LAB 15:16
PROVIDERS: Family Medicine
DX: E11.22 Type 2 diabetes mellitus with diabetic chronic kidney disease (principal); N18.30 Chronic kidney disease, stage 3 unspecified
CPT/HCPCS: 80069; 83036; 85018

== ENCOUNTER → 2022-03-18 | Outpatient (CLI) | payer OTHER | END | disposition home or self-care (01) | LOC: PLD 14:56 → LAB SHORT 14:56 | DX: C44.42 Squamous cell carcinoma of skin of scalp and neck (principal) | CPT/HCPCS: 88305 ==

== ENCOUNTER → 2022-04-07 | Outpatient (CLI) | payer OTHER | LOC: PLD 07:44 → LAB SHORT 07:44 | DX: C44.42 Squamous cell carcinoma of skin of scalp and neck (principal); C44.41 Basal cell carcinoma of skin of scalp and neck | CPT/HCPCS: 88305 ==

== ENCOUNTER → 2022-04-21 | Outpatient (CLI) | payer OTHER | END | disposition home or self-care (01) | LOC: LAB SHORT 12:30 → LAB 12:30 | DX: E87.6 Hypokalemia (principal) | CPT/HCPCS: 84132 ==

== ENCOUNTER → 2022-05-23 | Outpatient (CLI) | payer OTHER ==
[2022-05-23 18:34] LABS: Albumin, Blood 3.1 g/dL (3.4-5.0); Anion Gap 6 mmol/L (6-16); Blood Urea Nitrogen 28 mg/dL (8-24); Bun/Creatinine Ratio 28.6 (12.0-20.0); CO2, Blood 36 mmol/L (21-32); Calcium, Blood 8.8 mg/dL (8.5-10.1); Chloride, Blood 101 mmol/L (98-108); Creatinine, Blood 0.98 mg/dL (0.60-1.20); Glomerular Filtration Rate 74 (60-); Glucose, Blood 162 mg/dL (70-99); Phosphorus, Blood 3.7 mg/dL (2.5-4.9); Potassium, Blood 3.7 mmol/L (3.5-5.5); Sodium, Blood 143 mmol/L (136-145)
== END ==
LOC: LAB SHORT 14:00
PROVIDERS: Internal Medicine Nephrology
DX: N18.2 Chronic kidney disease, stage 2 (mild) (principal); E87.6 Hypokalemia
CPT/HCPCS: 80069

== ENCOUNTER → 2022-06-27 | Outpatient (CLI) | payer OTHER ==
[~2022-06-27] MED LIST changes: +ALBUTEROL1.25 MG/3; +ATENOLOL25 MG; +CIPR500 PO; +DOCU100 PO; +FLUTICASONE-SA1 EAC8; +Potassium Chlo20 ME1 PO; +TAMSULOSIN HCL0.4 M1 PO; +TORSEMIDE 20 MG; +VISBIOME 112.51 EACH PO; +XARELTO20 MG PO
[2022-06-27 14:53] LABS: Source, Urine Clean Catch
[2022-06-27 17:33] LABS: Appearance, Urine Clear (Clear); Bilirubin, Urine Neg (Neg); Blood, Urine 3+ (Neg); Glucose Qualitative, Urine Neg (Neg); Ketones, Urine Neg (Neg); Leukocyte Esterase, Urine 1+ (Neg); Nitrite, Urine Neg (Neg); Protein, Urine Neg (Neg); Specific Gravity, Urine 1.015 (1.003-1.022); Urobilinogen, Urine NORM (Normal)
[2022-06-27 17:53] LABS: Color, Urine Pale Yellow (P-Yellow)
[2022-06-27 17:54] LABS: Hyaline Casts 0-2 /lpf (0-2); Red Blood Cells, Urine 0-2 /hpf (0-2); White Blood Cells, Urine 0-2 /hpf (0-5)
[2022-06-27 17:55] LABS: Bacteria Mod /hpf; Squamous Epithelial Cells Not Seen /hpf (Few)
== END | disposition home or self-care (01) ==
LOC: LAB SHORT 13:13 → LAB 13:13
PROVIDERS: Family Medicine
DX: R44.3 Hallucinations, unspecified (principal)
CPT/HCPCS: 81001; 87086

== ENCOUNTER → 2022-09-04 | Outpatient (CLI) | payer OTHER ==
[2022-09-04 15:30] LABS: Source, Urine Clean Catch
[2022-09-04 18:07] LABS: Appearance, Urine Clear (Clear); Bilirubin, Urine Neg (Neg); Blood, Urine 1+ (Neg); Color, Urine Yellow (P-Yellow); Glucose Qualitative, Urine Neg (Neg); Ketones, Urine Neg (Neg); Leukocyte Esterase, Urine 1+ (Neg); Nitrite, Urine Pos (Neg); Protein, Urine Neg (Neg); Specific Gravity, Urine 1.015 (1.003-1.022); Urobilinogen, Urine NORM (Normal)
[2022-09-04 18:35] LABS: Bacteria Many /hpf; Red Blood Cells, Urine 0-2 /hpf (0-2); Squamous Epithelial Cells Not Seen /hpf (Few)
== END | disposition home or self-care (01) ==
LOC: LAB 15:15 → LAB SHORT 15:15
PROVIDERS: Family Medicine
DX: N39.0 Urinary tract infection, site not specified (principal); R45.86 Emotional lability
CPT/HCPCS: 81001; 87077; 87086; 87186

== ENCOUNTER 2022-09-20 06:36 | Emergency (ER) | payer OTHER ==
[~2022-09-20] VITALS: Ht 170.2 cm; Wt 90.7 kg
[2022-09-20 07:51] LABS: BASOPHILS ABSOLUTE AUTO 0.01 K/mm3 (0.00-0.23); BASOPHILS PERCENT AUTO 0 % (0-2); EOSINOPHILS PERCENT AUTO 3 % (0-6); Hematocrit 39.1 % (37.0-53.0); Hemoglobin 12.4 g/dL (13.5-17.5); IMMATURE GRAN ABSOLUTE AUTO 0.01 K/mm3 (0.00-0.10); IMMATURE GRAN PERCENT AUTO 0 % (0-1); LYMPHOCYTES ABSOLUTE AUTO 1.09 K/mm3 (0.84-5.20); LYMPHOCYTES PERCENT AUTO 16 % (21-46); MONOCYTES ABSOLUTE AUTO 0.53 K/mm3 (0.16-1.47); MONOCYTES PERCENT AUTO 8 % (4-13); Mean Corpuscular HGB 29.9 pg (26.0-34.0); Mean Corpuscular HGB Conc 31.7 g/dL (31.5-36.5); Mean Corpuscular Volume 94 fL (80-100); Mean Platelet Volume 9.9 fL (9.1-12.4); NEUTROPHILS ABSOLUTE AUTO 5.05 K/mm3 (1.96-9.15); NEUTROPHILS PERCENT AUTO 73 % (41-73); Platelet Count 146 K/mm3 (150-400); RDW Coefficient Variation 13.9 % (11.7-14.2); RDW Standard Deviation 48.4 fL (35.1-46.3); Red Blood Cell Count 4.15 M/mm3 (4.30-5.90); White Blood Cell Count 6.89 K/mm3 (4.00-11.30)
[2022-09-20 08:10] LABS: Albumin, Blood 3.4 g/dL (3.4-5.0); Albumin/Globulin Ratio 0.7 (0.8-1.8); Bilirubin, Total 0.6 mg/dL (0.1-1.0); Bun/Creatinine Ratio 40.9 (12.0-20.0); Calcium, Blood 9.4 mg/dL (8.5-10.1); Creatinine, Blood 0.86 mg/dL (0.60-1.20); Potassium, Blood 4.2 mmol/L (3.5-5.5); Total Protein, Blood 8.4 g/dL (6.4-8.2)
== END 2022-09-20 11:27 | disposition home or self-care (01) ==
LOC: ER 06:36
PROVIDERS: Emergency Medicine
DX: T83.021A Displacement of indwelling urethral catheter, initial encounter (principal); Y84.6 Urinary catheterization as the cause of abnormal reaction of the patient, or of later complication, without mention of misadventure at the time of the procedure; I10 Essential (primary) hypertension; I48.91 Unspecified atrial fibrillation; Z79.01 Long term (current) use of anticoagulants
CPT/HCPCS: 36415; 76857; 80053; 85025; J2405; J3010

== ENCOUNTER 2022-10-13 05:07 | Inpatient (IN) | payer OTHER ==
[~2022-10-13] VITALS: Ht 177.8 cm; Wt 95.5 kg
[2022-10-13 05:34] LABS: Base Excess Venous 20.8 mmol/L; Bicarbonate Venous 41.2 mmol/L (24.0-30.0); PCO2 Venous 82.7 mmHg (38-42); pH Blood Venous 7.36 (7.34-7.37)
[2022-10-13 05:39] LABS: BASOPHILS ABSOLUTE AUTO 0.02 K/mm3 (0.00-0.23); BASOPHILS PERCENT AUTO 0 % (0-2); EOSINOPHILS ABSOLUTE AUTO 0.23 K/mm3 (0.00-0.68); EOSINOPHILS PERCENT AUTO 4 % (0-6); Hematocrit 36.9 % (37.0-53.0); Hemoglobin 11.2 g/dL (13.5-17.5); IMMATURE GRAN ABSOLUTE AUTO 0.01 K/mm3 (0.00-0.10); IMMATURE GRAN PERCENT AUTO 0 % (0-1); LYMPHOCYTES PERCENT AUTO 19 % (21-46); MONOCYTES ABSOLUTE AUTO 0.46 K/mm3 (0.16-1.47); MONOCYTES PERCENT AUTO 8 % (4-13); Mean Corpuscular HGB 29.6 pg (26.0-34.0); Mean Corpuscular HGB Conc 30.4 g/dL (31.5-36.5); Mean Corpuscular Volume 98 fL (80-100); Mean Platelet Volume 10.7 fL (9.1-12.4); NEUTROPHILS ABSOLUTE AUTO 4.13 K/mm3 (1.96-9.15); NEUTROPHILS PERCENT AUTO 69 % (41-73); Platelet Count 124 K/mm3 (150-400); RDW Coefficient Variation 14.4 % (11.7-14.2); RDW Standard Deviation 51.8 fL (35.1-46.3); Red Blood Cell Count 3.78 M/mm3 (4.30-5.90); White Blood Cell Count 5.95 K/mm3 (4.00-11.30)
[2022-10-13 05:59] LABS: Albumin, Blood 3.4 g/dL (3.4-5.0); Albumin/Globulin Ratio 0.7 (0.8-1.8); Bilirubin, Total 0.5 mg/dL (0.1-1.0); Bun/Creatinine Ratio 42.1 (12.0-20.0); Calcium, Blood 9.3 mg/dL (8.5-10.1); Creatinine, Blood 0.74 mg/dL (0.60-1.20); Globulin, Blood 4.8 g/dL (2.2-4.0); Potassium, Blood 4.6 mmol/L (3.5-5.5); Total Protein, Blood 8.2 g/dL (6.4-8.2)
[2022-10-13 06:05] LABS: International Normalized Ratio 1.31; Prothrombin Time Results 13.5 Sec (9.7-11.5)
[2022-10-13 06:45] LABS: Influenza A, PCR NEGATIVE (NEGATIVE); Influenza B, PCR NEGATIVE (NEGATIVE); Resp Syncytial Virus, PCR NEGATIVE (NEGATIVE); SARS-Cov-2 (COVID-19) PCR, MMC NEGATIVE (NEGATIVE)
[2022-10-13 07:38] LABS: Base Excess Venous 19.3 mmol/L; Bicarbonate Venous 39.6 mmol/L (24.0-30.0); PCO2 Venous 85.9 mmHg (38-42); pH Blood Venous 7.33 (7.34-7.37)
[2022-10-13 11:33] LABS: Source, Urine Foley catheter
[2022-10-13 11:49] LABS: Base Excess Venous 15.8 mmol/L; Bicarbonate Venous 36.4 mmol/L (24.0-30.0); PCO2 Venous 79.5 mmHg (38-42); pH Blood Venous 7.33 (7.34-7.37)
[2022-10-13 11:55] LABS: Bilirubin, Urine Neg (Neg); Blood, Urine 5+ (Neg); Color, Urine Yellow (P-Yellow); Glucose Qualitative, Urine Neg (Neg); Ketones, Urine Neg (Neg); Leukocyte Esterase, Urine 3+ (Neg); Nitrite, Urine Neg (Neg); Protein, Urine 2+ (Neg); Urobilinogen, Urine NORM (Normal)
[2022-10-13 12:46] LABS: Appearance, Urine Hazy (Clear)
[2022-10-13 12:50] LABS: Bacteria Rare /hpf; Squamous Epithelial Cells Few /hpf (Few)
--- NOTE | 2022-10-13 16:11 | NUR ---
UPDATE ENETERED PT ROOM AND PT SLEEPING. ATTEMPTED TO WAKE PT WITH VERBAL STIMULUS AND NO RESPONSE. PAINFUL STIMULUS APPLIED AND PT WILL NOT OPEN HIS EYES, BUT MINIMAL REACTION. BIPAP PLACED ON PT. WILL CONTINUE TO MONITOR CLOSEY. CBG STABLE.
--- NOTE | 2022-10-13 17:29 | NUR ---
UPDATE AFTER APPROXIMATELY 1.5 HOURS ON BIPAP, PT WAKES UP AND PULLS AT ALL OF HIS LINES. PT ANSWERING QUESTIONS, BUT CONFUSED. TELEMETRY REPLACED AND PT TO STAY ON BIPAP. WILL CONTINUE TO MONITOR CLOSELY AND REPORT TO ONCOMING RN
--- NOTE | 2022-10-13 20:05 | NUR ---
ASSUMPTION OF CARE: PATIENT IS PLEASANT ABLE TO MAKE NEEDS KNOWN, DEMENTED, REORIENTS WELL. ALERT TO SELF AND PLACE. PERIODS OF LETHERGY REQUIRING BIPAP. WITH LARGE IMPROVEMENT. DENIES CHEST PAIN PRESSURE OR SOB AT THIS TIME JUANA CONTINUE TO MONITOR SPO2 WITH BIPAP >95% NOT VISIBLY SOB AT THIS TIME. CHRONIC HERNÁNDEZ THAT WAS CHANGED IN THE ED TODAY 10/13/21 AND DRAINING YELLOW. ABN ANATOMY. SCATTERED SCABS AND RASH ON QUENTIN CHEST AND SCABS T/O, LEFT LE IS EXTREMEMLY ATROPHIED, PULSES ARE WELL. WILL CONTINUE TO MONITOR UNTIL SHIFT CHANGE. NO CONCERNS FROM THIS RN AT THIS TIME.
--- NOTE | 2022-10-14 04:35 | NUR ---
END OF SHIFT: PATIENT IS MORE ALERT THAN AT ASSUMPTION OF CARE, NO CONCERNS FROM THIS RN. PATIENT HAS BEEN IMPROVING WITH BASELINE O2 AND BIPAP WHEN SLEEPING. PATIENT HAS BEEN MOVED OFTEN AND REPOSITION AT A MINIMUM OF Q2. PATIENT HSA BEEN SPO2 >94% ON 2L. DENIES CHEST PAIN. WILL CONTINUE TO MONITOR UNTIL SHIFT CHANGE. NO CONCERNS FROM PATIENT AT THIS TIME.
--- NOTE | 2022-10-14 18:04 | NUR ---
SHIFT NOTE PT ALERT, BEGAN THE DAY QUITE AGITATED AND SHOUTING AT STAFF, HE IS REDIRECTABLE. REPORTS NO CHANGE IN WORK OF BREATHING. PT DOES NEED TO BE REMINDED A FEW TIMES T/O THE DAY TO KEEP NC IN NARES HE FORGETS AND REMOVES IT WHEN HE IS EATING AND DESATURATES. OTHERWISE HE HAS BEEN RESTING WELL IN BED T/O THE DAY. HE HAD A BED BATH THIS AM AND LINEN CHANGE. VSS. NADN. REQUIRES ASSISTANCE WITH NEARLY ALL REPOSITIONING. HERNÁNDEZ DRAINING TO GRAVITY, WITH CLEAR YELLOW URINE.
--- NOTE | 2022-10-15 06:17 | NUR ---
SHIFT SUMMARY PT ALERT AND ORIENTED. CONFUSED AT TIMES. HR STABLE. BP STABLE. NO CP OR PRESSURE. PT WORE BIPAP T/O SHIFT. PULLED BIPAP OFF THIS AM D/T COUGHING UP MUCOUS. PT REFUSING BIPAP. CURRENLTY ON 2.5 L VIA NC, RT AWARE. OXYGEN SATURAITON MAINTAINED ABOVE 92%. PT REFUSED TURNS T/O SHIFT. HERNÁNDEZ PATENT AND DRAINING TO GRAVITY. CALL LIGHT WITHIN REACH. WILL CONT TO MONITOR UNTIL REPORT GIVEN TO XIANG HODGES.
--- NOTE | 2022-10-15 07:45 | NUR ---
INITIAL ASSESSMENT: Patient is awake sitting up in bed, he is alert and oriented to self, location, and date. He is forgetful and at times is calling out instead of using call light. He denies pain at this time. HR Irregular with a Murmur, Junctional rhythm with a BBB with a rate in the 80s. LS DIM T/O with some audible wheezing when asked to take a deep breath. He is on 1L O2 with saturations in the low 90s. BT. PPP. He has a red/purple discoloration of BLE from the high iverson down into the feet, he states he has N/t but cannot tell me where. VSS.
[2022-10-15 08:04] LABS: Hematocrit 35.1 % (37.0-53.0); Hemoglobin 10.8 g/dL (13.5-17.5); Mean Corpuscular HGB 29.5 pg (26.0-34.0); Mean Corpuscular HGB Conc 30.8 g/dL (31.5-36.5); Mean Corpuscular Volume 96 fL (80-100); Mean Platelet Volume 10.6 fL (9.1-12.4); Platelet Count 127 K/mm3 (150-400); RDW Coefficient Variation 14.3 % (11.7-14.2); RDW Standard Deviation 49.9 fL (35.1-46.3); Red Blood Cell Count 3.66 M/mm3 (4.30-5.90); White Blood Cell Count 6.62 K/mm3 (4.00-11.30)
--- NOTE | 2022-10-15 08:30 | NUR ---
Update: Patient is C/O chest pain after eating breakfast, he states this happens in a fairly regular basis. He rates the pain at a 5/10, once the nitro is given his pain comes down to a 1/10. He describes it as a sharp pressure. He is able to take his am pills one at a time with a sip of water. notified.
[2022-10-15 08:42] LABS: Albumin, Blood 3.4 g/dL (3.4-5.0); Albumin/Globulin Ratio 0.8 (0.8-1.8); Bilirubin, Total 0.6 mg/dL (0.1-1.0); Bun/Creatinine Ratio 66.7 (12.0-20.0); Calcium, Blood 9.2 mg/dL (8.5-10.1); Creatinine, Blood 0.68 mg/dL (0.60-1.20); Globulin, Blood 4.3 g/dL (2.2-4.0); Total Protein, Blood 7.7 g/dL (6.4-8.2)
--- NOTE | 2022-10-15 13:49 | NUR ---
UPDATE: Patient has been downgraded to medical status. He was assigned room 339, report was given to Connie zamora RN. Patient was transferred via bed to 339.
--- NOTE | 2022-10-15 18:45 | NUR ---
PT TRANSFERED FROM PCU, ORIENTED TO THE ROOM. 2 RN SKIN ASSESMENT PREFORMED WITH ALEN HODGES. HIS BED IS IN THE LOW POSITON AND CALL LIGHT IS WITHIN REACH. HERNÁNDEZ IS PATIENT AND DRAINING.
--- NOTE | 2022-10-16 02:45 | NUR ---
PATIENT TRANSFER RN TO RN. REPORT TAKEN FROM SARBJIT HODGES.
--- NOTE | 2022-10-16 04:51 | NUR ---
SHIFT SUMMARY PATIENT HAD NO ACUTE CHANGES OBSERVED. ALERT TO SELF WITH CONFUSION. HX . BEDREST AND MOAPA. ON 2L O2 NC BASELINE. CHRONIC HERNÁNDEZ PATENT AND DRAINING TO GRAVITY. PIV REMAINS INTACT. TELE MONITOR JUNCTIONAL RHYTHM 80'S. VSS/AFEBRILE. DENIES CHEST PAIN, SOB, AND N/V. CALL LIGHT IN REACH. BED IN LOWEST POSITION. WILL CONTINUE TO MONITOR UNTIL DAY SHIFT NURSE ASSUMES CARE.
--- NOTE | 2022-10-16 12:09 | NUR ---
NOTE PT TALKING NON STOP TO HIMSELF. FULL CONVERSATIONS. FAMILY REALTES THAT HE GETS VERY ANXIOUS AND NASTY IF LEFT ALONE. HE DEMANDS CONSTANT ATTENDANCE. REDIRECTABLE HERE. EXCELLENT APPETITE. CONTINUE POC.
--- NOTE | 2022-10-16 15:07 | NUR ---
BEHAVIOR WHEN DAUGHTER IN[place] WAS HERE PICKING UP PT , PT ATTEMPTED TO PUNCH HIS . DAUGHTER IN LAW RELATED THAT PT HAS BEEN GETTING MORE PHYSICALLY AGRESSIVE AT HOME. FAMILY ASKED IF THERE WAS ANY MEDICATIONS THAT MIGHT HELP SOOTH HIM? TALKED WITH DR SALEH. SEROQUEL 25MH AT BEDTIME ORDERED. CONTINUE POC.
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
--- NOTE | 2022-10-16 22:04 | NUR ---
ASSUMED CARE FROM CARROLL [facility]ONG.
--- NOTE | 2022-10-17 04:23 | NUR ---
SHIFT SUMMARY; NO ACUTE CHANGES T/O THE NIGHT. THE PT IS AXO X2-3, CONFUSION AT TIMES. THE PT HAS BEEN RESTING IN BED FOR THE ENTIRETY OF THE NIGHT. THE PT HAS 2L NC ON, WHICH IS BASELINE. O2 SATS HAVE BEEN >92% ON 2L NC. THE PT HAS A CHRONIC HERNÁNDEZ IN, PATENT AND DRAINING TO GRAVITY. THE PT DENIES ANY CHEST PAIN/PRESSURE, PAIN, N/V/D OR SOB. THE PT DOES HAVE SOB WHEN LYING FLAT. CURRENTLY THE PT IS RESTING IN BED WITH THE BED IN THE LOWEST POSITION AND THE CALL LIGHT AT BEDSIDE. THE BED ALARM IS ON FOR SAFETY.
[2022-10-17 05:28] LABS: Hematocrit 35.1 % (37.0-53.0); Hemoglobin 11.1 g/dL (13.5-17.5); Mean Corpuscular HGB 29.8 pg (26.0-34.0); Mean Corpuscular HGB Conc 31.6 g/dL (31.5-36.5); Mean Corpuscular Volume 94 fL (80-100); Mean Platelet Volume 10.8 fL (9.1-12.4); Platelet Count 110 K/mm3 (150-400); RDW Standard Deviation 48.7 fL (35.1-46.3); Red Blood Cell Count 3.73 M/mm3 (4.30-5.90); White Blood Cell Count 5.15 K/mm3 (4.00-11.30)
[2022-10-17 06:10] LABS: Albumin, Blood 3.1 g/dL (3.4-5.0); Albumin/Globulin Ratio 0.7 (0.8-1.8); Bilirubin, Total 0.4 mg/dL (0.1-1.0); Bun/Creatinine Ratio 71.1 (12.0-20.0); Calcium, Blood 8.9 mg/dL (8.5-10.1); Creatinine, Blood 0.7 mg/dL (0.60-1.20); Globulin, Blood 4.2 g/dL (2.2-4.0); Potassium, Blood 4.8 mmol/L (3.5-5.5); Total Protein, Blood 7.3 g/dL (6.4-8.2)
--- NOTE | 2022-10-17 17:32 | NUR ---
SHIFT SUMMARY- PT IS ALERT AND ORIENTED X3. SITTING UP IN BED EATING BREAKFAST AND LUNCH . ORDERS TO DANGLE PT FEET AT BEDSIDE WHEN EATING. DIFFICULT TO UNDERSTAND BUT FOLLOWS DIRECTIONS WELL. HERNÁNDEZ IN PLACE. WHEN PROVIDING CARES NOTICED PT BUTTOCKS WERE PURPLE AND BLANCHABLE. PURPLE AND IRRITATED UNDER AND ON SIDES OF SCROTOM AND INSIDE LEGS. APPLIED MEDICATION ORDERED AND USED PROTECTION CREAM ON BOTTOM. PT FLOATED WITH PILLOWS AND TURNED Q2HRS. BED IS IN THE LOWEST POSITION WITH CALL LIGHT IN REACH
--- NOTE | 2022-10-18 04:43 | NUR ---
SHIFT SUMMARY NOC PT IS A/O TO SELF AND PLACE. PT IS ON O2 2L/NC SPO2 > 95%. PT HAD ONE EPISODE OF TACHYPNEA AND PT WAS ASYMPTOMATIC. RT WAS CALLED AND BREATHING TREATMENT WAS ADMINISTERED AND TACHYPNEA WAS RELIEVED. PT HAS HX OF DEMENTIA AND TAKES O2 OFF AT TIMES. PT HAD NO C/O OF CP/DISCOMFORT DURING SHIFT. PT HAS BEEN RP Q2H DUE TO PURPLE BUT BLANCHABLE ARE ON PT BUTTOCKS. PT SCROTUM HAS SOME PURPLE COLORATION WITH IRRITATION AND RX OINTMENT APPLIED WELL BARRIER CREAM ON BACKSIDE. PT HERNÁNDEZ PATENT AND DRAINING YELLOW URINE TO GRAVITY. PT IS CURRENTLY RESTING WITH BED IN LOWEST POSITION, AND CALL LIGHT WITHIN REACH. TM.
[2022-10-18 06:21] LABS: Ferritin, Serum 59 ng/mL (26-388); Iron Serum 51 ug/dL (65-175); Percent Saturation 14.6 % (20.0-50.0); Total Iron Binding Capacity 349 ug/dL (250-450)
[2022-10-18 06:40] LABS: Anion Gap 3 mmol/L (6-16); Blood Urea Nitrogen 49 mg/dL (8-24); Bun/Creatinine Ratio 68.4 (12.0-20.0); CO2, Blood 37 mmol/L (21-32); Calcium, Blood 8.3 mg/dL (8.5-10.1); Chloride, Blood 100 mmol/L (98-108); Creatinine, Blood 0.72 mg/dL (0.60-1.20); Glomerular Filtration Rate 88 (60-); Glucose, Blood 176 mg/dL (70-99); Phosphorus, Blood 3.1 mg/dL (2.5-4.9); Potassium, Blood 4.4 mmol/L (3.5-5.5); Sodium, Blood 140 mmol/L (136-145)
[2022-10-18] MEDS ORDERED: Prednisone10 MG PO (11:10)
[2022-10-18] MEDS ORDERED: QUET25 (11:14)
--- NOTE | 2022-10-18 12:29 | NUR ---
Patient dangled at bedside this morning and ate breakfast. Physical therapy attempted to work with pt, patient declined to participate. Vitals stable, assessed pt and ordered discharge home. Coccyx dark in color, skin is blanchable, repositioned pt Q2H. Pt discharged via WC transport at 1200.
== END 2022-10-18 12:02 | disposition home health service (06) | DRG 189 ==
LOC: ER 05:07 → MEDS 10:16 → PCU 10:16 → MEDS 10-15 13:51
PROVIDERS: Emergency Medicine; Internal Medicine; Nurse Practitioner Acute Care; ADMIT Internal Medicine
PROC: 4A133R1 Monitoring of Arterial Saturation, Peripheral, Percutaneous Approach (ICD-10-PCS; principal; 2022-10-13)
PROC: 0T9B70Z Drainage of Bladder with Drainage Device, Via Natural or Artificial Opening (ICD-10-PCS; 2022-10-13)
PROC: 5A09357 Assistance with Respiratory Ventilation, Less than 24 Consecutive Hours, Continuous Positive Airway Pressure (ICD-10-PCS; 2022-10-13)
DX: J96.21 Acute and chronic respiratory failure with hypoxia (principal); T83.511A Infection and inflammatory reaction due to indwelling urethral catheter, initial encounter; J44.1 Chronic obstructive pulmonary disease with (acute) exacerbation; I48.20 Chronic atrial fibrillation, unspecified; I50.42 Chronic combined systolic (congestive) and diastolic (congestive) heart failure; F03.918 Unspecified dementia, unspecified severity, with other behavioral disturbance; N13.8 Other obstructive and reflux uropathy; I27.20 Pulmonary hypertension, unspecified; Z20.822 Contact with and (suspected) exposure to COVID-19; J96.22 Acute and chronic respiratory failure with hypercapnia; I25.10 Atherosclerotic heart disease of native coronary artery without angina pectoris; E78.5 Hyperlipidemia, unspecified; D50.9 Iron deficiency anemia, unspecified; I11.0 Hypertensive heart disease with heart failure; K21.9 Gastro-esophageal reflux disease without esophagitis; N40.1 Benign prostatic hyperplasia with lower urinary tract symptoms; D63.8 Anemia in other chronic diseases classified elsewhere; B95.61 Methicillin susceptible Staphylococcus aureus infection as the cause of diseases classified elsewhere; I48.0 Paroxysmal atrial fibrillation; R41.0 Disorientation, unspecified; E11.65 Type 2 diabetes mellitus with hyperglycemia; T38.0X5A Adverse effect of glucocorticoids and synthetic analogues, initial encounter; G47.33 Obstructive sleep apnea (adult) (pediatric); D69.6 Thrombocytopenia, unspecified; I25.2 Old myocardial infarction; Z98.890 Other specified postprocedural states; Z91.199 Patient's noncompliance with other medical treatment and regimen due to unspecified reason; Z79.2 Long term (current) use of antibiotics; Z79.51 Long term (current) use of inhaled steroids; Z79.01 Long term (current) use of anticoagulants; Z79.899 Other long term (current) drug therapy; Z95.5 Presence of coronary angioplasty implant and graft; Y84.6 Urinary catheterization as the cause of abnormal reaction of the patient, or of later complication, without mention of misadventure at the time of the procedure
CPT/HCPCS: 0241U; 36415; 51702; 71045; 80053; 80069; 81001; 82607; 82728; 82746; 82803; 82947; 83540; 83550; 83605; 83880; 84484; 85025; 85027; 85610; 87040; 87077; 87086; 87186; 93005; 93010; 94640; 94644; 94660; 94664; 94760; 94762; 96365-59; 96375-59; 97166; 97530; 97535; 99285-25; A9270; J0456; J0690; J0696; J1940; J2405; J2920; J2930; J3010; J7050; J7512

== ENCOUNTER 2022-11-11 12:01 | Emergency (ER) | payer OTHER ==
[~2022-11-11] VITALS: Ht 170.2 cm; Wt 99.8 kg
[~2022-11-11 12:01] MED LIST changes: +Prednisone10 MG PO; +QUET25
[2022-11-11 13:25] LABS: BASOPHILS ABSOLUTE AUTO 0.01 K/mm3 (0.00-0.23); BASOPHILS PERCENT AUTO 0 % (0-2); EOSINOPHILS ABSOLUTE AUTO 0.11 K/mm3 (0.00-0.68); EOSINOPHILS PERCENT AUTO 3 % (0-6); Hematocrit 35.6 % (37.0-53.0); Hemoglobin 10.9 g/dL (13.5-17.5); IMMATURE GRAN ABSOLUTE AUTO 0.01 K/mm3 (0.00-0.10); IMMATURE GRAN PERCENT AUTO 0 % (0-1); LYMPHOCYTES ABSOLUTE AUTO 0.81 K/mm3 (0.84-5.20); LYMPHOCYTES PERCENT AUTO 19 % (21-46); MONOCYTES ABSOLUTE AUTO 0.51 K/mm3 (0.16-1.47); MONOCYTES PERCENT AUTO 12 % (4-13); Mean Corpuscular HGB 29.6 pg (26.0-34.0); Mean Corpuscular HGB Conc 30.6 g/dL (31.5-36.5); Mean Corpuscular Volume 97 fL (80-100); Mean Platelet Volume 10.7 fL (9.1-12.4); NEUTROPHILS ABSOLUTE AUTO 2.74 K/mm3 (1.96-9.15); NEUTROPHILS PERCENT AUTO 66 % (41-73); Platelet Count 107 K/mm3 (150-400); RDW Coefficient Variation 15.7 % (11.7-14.2); RDW Standard Deviation 55.9 fL (35.1-46.3); Red Blood Cell Count 3.68 M/mm3 (4.30-5.90); White Blood Cell Count 4.19 K/mm3 (4.00-11.30)
[2022-11-11 13:49] LABS: Thyroid Stimulating Hormone 6.3 uIU/mL (0.360-4.800)
[2022-11-11] MEDS ORDERED: TORSE20 PO (13:59)
[2022-11-11] MEDS ORDERED: Isosorbide Mono30 MG PO (13:59)
[2022-11-11] MEDS ORDERED: METO25 PO (13:59)
[2022-11-11] MEDS ORDERED: ATOR20 PO (14:00)
[2022-11-11] MEDS ORDERED: XARELTO20 MG PO (14:00)
[2022-11-11 14:01] LABS: Albumin, Blood 3.1 g/dL (3.4-5.0); Albumin/Globulin Ratio 0.8 (0.8-1.8); Bilirubin, Total 0.9 mg/dL (0.1-1.0); Bun/Creatinine Ratio 40.8 (12.0-20.0); Calcium, Blood 8.7 mg/dL (8.5-10.1); Creatinine, Blood 0.76 mg/dL (0.60-1.20); Globulin, Blood 3.9 g/dL (2.2-4.0); Potassium, Blood 3.9 mmol/L (3.5-5.5)
[2022-11-11 14:35] LABS: Source, Urine Clean Catch
[2022-11-11 14:40] LABS: Bilirubin, Urine Neg (Neg); Blood, Urine 5+ (Neg); Glucose Qualitative, Urine Neg (Neg); Ketones, Urine Neg (Neg); Leukocyte Esterase, Urine 2+ (Neg); Nitrite, Urine Neg (Neg); Protein, Urine 2+ (Neg); Specific Gravity, Urine 1.015 (1.003-1.022); Urobilinogen, Urine NORM (Normal)
[2022-11-11 14:52] LABS: Appearance, Urine Hazy (Clear); Color, Urine Pale Yellow (P-Yellow)
[2022-11-11 14:56] LABS: Hyaline Casts 0-2 /lpf (0-2)
[2022-11-11 14:58] LABS: Bacteria Few /hpf; Squamous Epithelial Cells Not Seen /hpf (Few)
[2022-11-11 15:03] LABS: Base Excess Venous 23.3 mmol/L; Bicarbonate Venous 44.1 mmol/L (24.0-30.0); pH Blood Venous 7.39 (7.34-7.37)
[2022-11-11 16:23] LABS: Influenza A, PCR NEGATIVE (NEGATIVE); Influenza B, PCR NEGATIVE (NEGATIVE); Resp Syncytial Virus, PCR NEGATIVE (NEGATIVE); SARS-Cov-2 (COVID-19) PCR, MMC NEGATIVE (NEGATIVE)
== END 2022-11-11 18:33 | disposition home or self-care (01) ==
LOC: ER 12:01
PROVIDERS: Emergency Medicine
DX: J40 Bronchitis, not specified as acute or chronic (principal); I10 Essential (primary) hypertension; I25.2 Old myocardial infarction; I25.10 Atherosclerotic heart disease of native coronary artery without angina pectoris; E78.5 Hyperlipidemia, unspecified; J44.9 Chronic obstructive pulmonary disease, unspecified; Z79.02 Long term (current) use of antithrombotics/antiplatelets; Z79.899 Other long term (current) drug therapy; Z79.52 Long term (current) use of systemic steroids; Z20.822 Contact with and (suspected) exposure to COVID-19
CPT/HCPCS: 0241U; 51702; 71045; 80053; 81001; 82803; 83880; 84443; 84484; 85025; 93005; 93010; 99284-25

== ENCOUNTER 2022-11-15 05:32 | Inpatient (IN) | payer OTHER ==
[~2022-11-15] VITALS: Ht 172.7 cm; Wt 120.2 kg
[~2022-11-15 05:32] MED LIST changes: +METO25 PO
[2022-11-15 06:01] LABS: BASOPHILS ABSOLUTE AUTO 0.01 K/mm3 (0.00-0.23); BASOPHILS PERCENT AUTO 0 % (0-2); EOSINOPHILS ABSOLUTE AUTO 0.12 K/mm3 (0.00-0.68); EOSINOPHILS PERCENT AUTO 3 % (0-6); Hematocrit 36.7 % (37.0-53.0); IMMATURE GRAN ABSOLUTE AUTO 0.01 K/mm3 (0.00-0.10); IMMATURE GRAN PERCENT AUTO 0 % (0-1); LYMPHOCYTES ABSOLUTE AUTO 0.91 K/mm3 (0.84-5.20); LYMPHOCYTES PERCENT AUTO 21 % (21-46); MONOCYTES ABSOLUTE AUTO 0.36 K/mm3 (0.16-1.47); MONOCYTES PERCENT AUTO 8 % (4-13); Mean Corpuscular HGB 29.6 pg (26.0-34.0); Mean Corpuscular Volume 99 fL (80-100); Mean Platelet Volume 10.5 fL (9.1-12.4); NEUTROPHILS ABSOLUTE AUTO 2.94 K/mm3 (1.96-9.15); NEUTROPHILS PERCENT AUTO 68 % (41-73); Platelet Count 106 K/mm3 (150-400); RDW Coefficient Variation 15.6 % (11.7-14.2); RDW Standard Deviation 57.1 fL (35.1-46.3); Red Blood Cell Count 3.71 M/mm3 (4.30-5.90); White Blood Cell Count 4.35 K/mm3 (4.00-11.30)
[2022-11-15 06:35] LABS: Alanine Aminotransfer (ALT/SGP 36 U/L (12-78); Albumin, Blood 3.2 g/dL (3.4-5.0); Albumin/Globulin Ratio 0.8 (0.8-1.8); Alk Phos 133 U/L (50-136); Aspartate Aminotrans (AST/SGOT 23 U/L (12-37); Bilirubin, Total 0.7 mg/dL (0.1-1.0); Blood Urea Nitrogen 31 mg/dL (8-24); Bun/Creatinine Ratio 45.7 (12.0-20.0); Calcium, Blood 8.8 mg/dL (8.5-10.1); Chloride, Blood 92 mmol/L (98-108); Creatinine, Blood 0.68 mg/dL (0.60-1.20); Globulin, Blood 4.2 g/dL (2.2-4.0); Glomerular Filtration Rate 89 (60-); Glucose, Blood 219 mg/dL (70-99); Sodium, Blood 139 mmol/L (136-145); Total Protein, Blood 7.4 g/dL (6.4-8.2)
[2022-11-15 06:36] LABS: Anion Gap Unable to Calculate mmol/L (6-16); CO2, Blood >45 mmol/L (21-32)
[2022-11-15 07:06] LABS: Base Excess Venous 22.7 mmol/L; Bicarbonate Venous 43.2 mmol/L (24.0-30.0); PO2 Venous 53.2 mmHg (38-42)
[2022-11-15 08:15] LABS: Source, Urine Foley catheter
[2022-11-15 08:22] LABS: Appearance, Urine Clear (Clear); Bilirubin, Urine Neg (Neg); Blood, Urine 3+ (Neg); Glucose Qualitative, Urine Neg (Neg); Ketones, Urine Neg (Neg); Leukocyte Esterase, Urine 2+ (Neg); Nitrite, Urine Neg (Neg); Protein, Urine Neg (Neg); Specific Gravity, Urine 1.015 (1.003-1.022); Urobilinogen, Urine NORM (Normal)
[2022-11-15 08:28] LABS: Bicarbonate Venous 42.7 mmol/L (24.0-30.0)
[2022-11-15 08:28] LABS: Color, Urine Pale Yellow (P-Yellow)
[2022-11-15 08:32] LABS: Bacteria Mod /hpf; Yeast/Fungi Urine Rare /hpf
[2022-11-15 08:34] LABS: Mucus Light (0-Heavy); Squamous Epithelial Cells Rare /hpf (Few); Transitional Epithelial Cells Rare /hpf (0-Rare)
[2022-11-15] MEDS ORDERED: FURO40 PO (10:51)
[2022-11-15] MEDS ORDERED: TOPROL XL50 M1 PO (12:59)
--- NOTE | 2022-11-15 16:33 | NUR ---
SHIFT SUMMARY Patient arrived from ED via gurney at 1040 and transfered to PCU bed via slider sheet. patient is alert and oriented x4. patient daughter in law at bedside and answered patients medical questions,and patient son is POA. phone numbers in the room on the board. patient reports no pain. patient reports no chest pain/pressure. patient becomes short of breath with activity and talking. patient baseline is bed bound. spo2 >90% on 4l when arriving and this RN has titrated to 3, and patient baseline is 2l nc. coarse lung sounds. patient is on tele afib 80-120s. patient has reddness and an open sore to coccyx, mepilex in place and q2 repositioning to prevent skin breakdown. see assessment for further detials. patient uses call light appropriately. patient has a chronic christian cath, that was changed in ed upon arrival. it is draining with gravity yellow coloration. no acute changes since arrival to unit. vitals have remained stable. call light is within reach and bed in lowest position. plan is up to date.
[2022-11-16 04:32] LABS: Calcium, Blood 9.2 mg/dL (8.5-10.1); Creatinine, Blood 0.65 mg/dL (0.60-1.20); Potassium, Blood 4.1 mmol/L (3.5-5.5)
--- NOTE | 2022-11-16 06:10 | NUR ---
SHIFT SUMMARY ASSUMED CARE OF PT AT 1900. PT IS A/OX4. HEART SOUNDS REGULAR. LUNG SOUNDS COARSE. PT ON 3L NC T/O THE NIGHT. PT HAS A CHRONIC HERNÁNDEZ, DRAINING WITH GRAVITY. PT WAS TURNED Q2. PT DID NOT SLEEP VERY WELL, ASKING FOR MISC. THINGS T/O THE NIGHT.
--- NOTE | 2022-11-16 17:00 | NUR ---
PATIENT A/OX4, UP TO CHAIR WITH LIFT. MEPILEX TO SACRAL WOUND CHANGED AND REMAINS C/D/I. TURNING Q2 HOURS. VSS, ON 3LO2 TO MAINTAIN SATS. ACHS BLOOD SUGARS, TOLERATING ADA DIET. CHRONIC HERNÁNDEZ IN PLACE. AND DAUGHTER IN LAW IN THIS AFTERNOON. DIL IS PATIENTS CAREGIVER. PATIENT CALLS FREQUENTLY, BUT IS PLEASANT WITH CARE. NO NEW CONCERNS THIS SHIFT.
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
[2022-11-17 05:54] LABS: BASOPHILS ABSOLUTE AUTO 0.01 K/mm3 (0.00-0.23); BASOPHILS PERCENT AUTO 0 % (0-2); EOSINOPHILS PERCENT AUTO 0 % (0-6); Hematocrit 41.9 % (37.0-53.0); Hemoglobin 12.4 g/dL (13.5-17.5); IMMATURE GRAN ABSOLUTE AUTO 0.01 K/mm3 (0.00-0.10); IMMATURE GRAN PERCENT AUTO 0 % (0-1); LYMPHOCYTES ABSOLUTE AUTO 0.45 K/mm3 (0.84-5.20); LYMPHOCYTES PERCENT AUTO 8 % (21-46); MONOCYTES ABSOLUTE AUTO 0.15 K/mm3 (0.16-1.47); MONOCYTES PERCENT AUTO 3 % (4-13); Mean Corpuscular HGB 29.2 pg (26.0-34.0); Mean Corpuscular HGB Conc 29.6 g/dL (31.5-36.5); Mean Corpuscular Volume 99 fL (80-100); Mean Platelet Volume 10.6 fL (9.1-12.4); NEUTROPHILS ABSOLUTE AUTO 5.38 K/mm3 (1.96-9.15); NEUTROPHILS PERCENT AUTO 90 % (41-73); Platelet Count 120 K/mm3 (150-400); RDW Coefficient Variation 15.4 % (11.7-14.2); Red Blood Cell Count 4.25 M/mm3 (4.30-5.90)
[2022-11-17 06:13] LABS: Calcium, Blood 9.2 mg/dL (8.5-10.1); Creatinine, Blood 0.68 mg/dL (0.60-1.20); Potassium, Blood 4.3 mmol/L (3.5-5.5)
--- NOTE | 2022-11-17 08:00 | NUR ---
pt laying in bed talking to self at times, does answer questions but is sob with sentences, a/ox 2 to 3, cooperative with care this am, but refused PT, lungs are course t/o, dim in bases, on 2 liters o2 at this time, no cough noted at this time, hrirr, tele in place running afib per monitor, see strip, trace edema noted to b/l le, cap refill <3 sec, iv to rfa site is clear and patent, btx4, abd flat soft nontender, voids via chronic christian cath, draining clear yellow urine, skin has rash to rahul area and mepilex to coccyx, dk skin on b/l le, pt reports he is bed bound, left calf is deformed from trauma, moves himself in bed, call light in reach.
[2022-11-17 16:39] LABS: Bicarbonate Venous 38.6 mmol/L (24.0-30.0); PCO2 Venous 73.4 mmHg (38-42); pH Blood Venous 7.38 (7.34-7.37)
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
--- NOTE | 2022-11-17 20:30 | NUR ---
CALLED REGARDING PTS BS OF 405, PUT IN ORDER TO RAISE THE PTS HS OF GLARGINE FROM 10 UNITS TO 20 UNITS. I ALSO NOTIFIED OF THE PTS B/P OF 110/73 AND HEART RATE OF 105, PER I GAVE THE FULL 75 MG OF METOPROLOL ORDERED.
--- NOTE | 2022-11-18 04:02 | NUR ---
SHIFT SUMMARY; NO ACUTE CHANGES OVERNIGHT. THE PT IS AXO X2-3 WITH OCCASSIONAL FORGETFULLNESS. THE PT HAS BEEN RESTED IN BED FOR THE ENTIRETY OF THE NIGHT. THE PT IS ON BEDREST AND A LIFT PT. THE PT IS ON 4L NC WITH O2 SATS >90%. THE PTS BASELINE IS 2-2.5L NC. THE PT IS DYSPNEC WITH EXERTION AND CANNOT TOLERATE LAYING ON ONE SIDE FOR ATTEND CHANGES FOR VERY LONG. THE PT HAS HAD 3 MEDIUM SIZED SOFT BOWEL MOVEMENTS THIS EVENING. TELE IS IN PLACE, A-FIB IN THE 90-100'S. THE PT DENIES ANY PAIN, N/V, OR CHEST PAIN/PRESSURE THIS EVENING. CURRENTLY THE PT IS LYING IN BED WITH THE BED IN THE LOWEST POSITION AND THE CALL LIGHT AT BEDSIDE.
[2022-11-18 05:52] LABS: BASOPHILS PERCENT AUTO 0 % (0-2); EOSINOPHILS PERCENT AUTO 0 % (0-6); Hematocrit 39.2 % (37.0-53.0); Hemoglobin 12.1 g/dL (13.5-17.5); IMMATURE GRAN ABSOLUTE AUTO 0.02 K/mm3 (0.00-0.10); IMMATURE GRAN PERCENT AUTO 0 % (0-1); LYMPHOCYTES PERCENT AUTO 8 % (21-46); MONOCYTES ABSOLUTE AUTO 0.19 K/mm3 (0.16-1.47); MONOCYTES PERCENT AUTO 4 % (4-13); Mean Corpuscular HGB 29.6 pg (26.0-34.0); Mean Corpuscular HGB Conc 30.9 g/dL (31.5-36.5); Mean Corpuscular Volume 96 fL (80-100); Mean Platelet Volume 10.4 fL (9.1-12.4); NEUTROPHILS ABSOLUTE AUTO 4.48 K/mm3 (1.96-9.15); NEUTROPHILS PERCENT AUTO 88 % (41-73); Platelet Count 127 K/mm3 (150-400); RDW Coefficient Variation 15.3 % (11.7-14.2); RDW Standard Deviation 53.8 fL (35.1-46.3); Red Blood Cell Count 4.09 M/mm3 (4.30-5.90); White Blood Cell Count 5.09 K/mm3 (4.00-11.30)
[2022-11-18 06:16] LABS: Bun/Creatinine Ratio 61.2 (12.0-20.0); Calcium, Blood 8.7 mg/dL (8.5-10.1); Creatinine, Blood 0.83 mg/dL (0.60-1.20); Potassium, Blood 4.1 mmol/L (3.5-5.5)
--- NOTE | 2022-11-18 12:12 | NUR ---
NOTE: NOTIFIED DR. SARMIENTO OF [facility] OF 365 FOR NOON. CHANGED PT FROM LOW SS TO MEDIUM SS AND DOSE PT ACCORDING TO MEDIUM SS.
[2022-11-18] MEDS ORDERED: IPRAT-ALBUT 0.5-3 ML INH (13:54)
[2022-11-18] MEDS ORDERED: CEFP200 PO (13:55)
[2022-11-18] MEDS ORDERED: DOXY100 PO (13:56)
[2022-11-18] MEDS ORDERED: PRED20 PO (13:56)
[2022-11-18] MEDS ORDERED: VISBIOME 112.51 EACH PO (13:56)
--- NOTE | 2022-11-18 13:56 | NUR ---
CODE STATUS CHANGED: [facility]ST FILLED OUT, PT NOW DNR WITH LIMITED INTERVENTIONS.
[2022-11-18] MEDS ORDERED: ANORO ELLIPTA1 EACH INH (13:57)
[2022-11-18] MEDS ORDERED: MICONAZOLE NITR85 GM TOP (13:57)
--- NOTE | 2022-11-18 17:03 | NUR ---
DISCHARGE NOTE PT DISCHARGED TO HOME VIA WHEELCHAIR VAN. IV REMOVED SUCCESSFULLY. DISCHARGE PAPERWORK AND EDUCATION PROVIDED. PERSONAL BELONGINGS RETURNED.
== END 2022-11-18 16:44 | disposition home or self-care (01) | DRG 189 ==
LOC: ER 05:32 → PCU 09:19 → MEDS 10:38 → PCU 10:44 → MEDS 11-16 10:35
PROVIDERS: Emergency Medicine; Family Medicine; Student in an Organized Health Care Education/Training Program; ADMIT Hospitalist
PROC: 5A09357 Assistance with Respiratory Ventilation, Less than 24 Consecutive Hours, Continuous Positive Airway Pressure (ICD-10-PCS; principal; 2022-11-16)
DX: J96.21 Acute and chronic respiratory failure with hypoxia (principal); T83.511A Infection and inflammatory reaction due to indwelling urethral catheter, initial encounter; N39.0 Urinary tract infection, site not specified; I50.22 Chronic systolic (congestive) heart failure; J44.1 Chronic obstructive pulmonary disease with (acute) exacerbation; E87.4 Mixed disorder of acid-base balance; Z68.41 Body mass index [BMI] 40.0-44.9, adult; J96.22 Acute and chronic respiratory failure with hypercapnia; Z51.5 Encounter for palliative care; Z66 Do not resuscitate; N40.0 Benign prostatic hyperplasia without lower urinary tract symptoms; I25.10 Atherosclerotic heart disease of native coronary artery without angina pectoris; E11.9 Type 2 diabetes mellitus without complications; K21.9 Gastro-esophageal reflux disease without esophagitis; E78.5 Hyperlipidemia, unspecified; G47.33 Obstructive sleep apnea (adult) (pediatric); I11.0 Hypertensive heart disease with heart failure; I48.0 Paroxysmal atrial fibrillation; R94.31 Abnormal electrocardiogram [ECG] [EKG]; D63.8 Anemia in other chronic diseases classified elsewhere; F03.90 Unspecified dementia, unspecified severity, without behavioral disturbance, psychotic disturbance, mood disturbance, and anxiety; I25.5 Ischemic cardiomyopathy; K44.9 Diaphragmatic hernia without obstruction or gangrene; B96.89 Other specified bacterial agents as the cause of diseases classified elsewhere; Z79.899 Other long term (current) drug therapy; Z79.51 Long term (current) use of inhaled steroids; Z79.52 Long term (current) use of systemic steroids; Z95.5 Presence of coronary angioplasty implant and graft; Z74.01 Bed confinement status; Z79.02 Long term (current) use of antithrombotics/antiplatelets; Z79.01 Long term (current) use of anticoagulants; I25.2 Old myocardial infarction; Z99.81 Dependence on supplemental oxygen; Z85.820 Personal history of malignant melanoma of skin; Z85.72 Personal history of non-Hodgkin lymphomas; Z98.890 Other specified postprocedural states; Z87.891 Personal history of nicotine dependence; Y84.6 Urinary catheterization as the cause of abnormal reaction of the patient, or of later complication, without mention of misadventure at the time of the procedure; E66.9 Obesity, unspecified
CPT/HCPCS: 36415; 51702; 71045; 80048; 80053; 81001; 82803; 82947; 83036; 83735; 83880; 84145; 84484; 85025; 87086; 93005; 93010; 94640; 94644; 94664; 94760; 94762; 96365; 96375; 99285-25; A9270; J0696; J1630; J1815; J1940; J2060; J2930

== ENCOUNTER 2022-12-02 10:09 | Observation (INO) | payer OTHER ==
[~2022-12-02] VITALS: Ht 177.8 cm; Wt 101.5 kg
[~2022-12-02 10:09] MED LIST changes: +ANORO ELLIPTA1 EACH INH; +CEFP200 PO; +DOXY100 PO; +FURO40 PO; +IPRAT-ALBUT 0.5-3 ML INH; +MICONAZOLE NITR85 GM TOP; +PRED20 PO; +TOPROL XL50 M1 PO
[2022-12-02 10:38] LABS: BASOPHILS ABSOLUTE AUTO 0.02 K/mm3 (0.00-0.23); BASOPHILS PERCENT AUTO 0 % (0-2); EOSINOPHILS ABSOLUTE AUTO 0.08 K/mm3 (0.00-0.68); EOSINOPHILS PERCENT AUTO 1 % (0-6); Hemoglobin 11.4 g/dL (13.5-17.5); IMMATURE GRAN ABSOLUTE AUTO 0.03 K/mm3 (0.00-0.10); IMMATURE GRAN PERCENT AUTO 1 % (0-1); LYMPHOCYTES ABSOLUTE AUTO 0.63 K/mm3 (0.84-5.20); LYMPHOCYTES PERCENT AUTO 10 % (21-46); MONOCYTES ABSOLUTE AUTO 0.42 K/mm3 (0.16-1.47); MONOCYTES PERCENT AUTO 6 % (4-13); Mean Corpuscular HGB 30.1 pg (26.0-34.0); Mean Corpuscular Volume 100 fL (80-100); Mean Platelet Volume 10.7 fL (9.1-12.4); NEUTROPHILS ABSOLUTE AUTO 5.43 K/mm3 (1.96-9.15); NEUTROPHILS PERCENT AUTO 82 % (41-73); Platelet Count 99 K/mm3 (150-400); RDW Coefficient Variation 15.9 % (11.7-14.2); RDW Standard Deviation 58.2 fL (35.1-46.3); Red Blood Cell Count 3.79 M/mm3 (4.30-5.90); White Blood Cell Count 6.61 K/mm3 (4.00-11.30)
[2022-12-02 10:54] LABS: Alanine Aminotransfer (ALT/SGP 33 U/L (12-78); Albumin, Blood 3.1 g/dL (3.4-5.0); Albumin/Globulin Ratio 0.8 (0.8-1.8); Alk Phos 138 U/L (50-136); Aspartate Aminotrans (AST/SGOT 15 U/L (12-37); Bilirubin, Total 0.8 mg/dL (0.1-1.0); Blood Urea Nitrogen 31 mg/dL (8-24); Bun/Creatinine Ratio 42.2 (12.0-20.0); Calcium, Blood 9.1 mg/dL (8.5-10.1); Chloride, Blood 93 mmol/L (98-108); Creatinine, Blood 0.74 mg/dL (0.60-1.20); Globulin, Blood 4.1 g/dL (2.2-4.0); Glomerular Filtration Rate 87 (60-); Glucose, Blood 314 mg/dL (70-99); Potassium, Blood 4.4 mmol/L (3.5-5.5); Sodium, Blood 137 mmol/L (136-145); Total Protein, Blood 7.2 g/dL (6.4-8.2)
[2022-12-02 10:55] LABS: Anion Gap Unable to Calculate mmol/L (6-16); CO2, Blood >45 mmol/L (21-32)
[2022-12-02 11:00] LABS: Source, Urine Foley catheter
[2022-12-02] MEDS ORDERED: AZELASTINE HCL6 ML BOTHEYES (11:02)
[2022-12-02 11:03] LABS: PCO2 Arterial 95.7 mmHg (35-45); PO2 Arterial 83.8 mmHg (80-100); pH Blood Arterial 7.32 (7.35-7.45)
[2022-12-02] MEDS ORDERED: QUETIAPINE FUMA25 MG PO (11:03)
[2022-12-02] MEDS ORDERED: FUROSEMIDE40 MG PO (11:03)
[2022-12-02] MEDS ORDERED: TAMSULOSIN HCL0.4 M1 PO (11:04)
[2022-12-02] MEDS ORDERED: FERROUS SULFAT325 M3 PO (11:04)
[2022-12-02] MEDS ORDERED: ATENOLOL25 MG PO (11:05)
[2022-12-02] MEDS ORDERED: Potassium Chlo20 ME1 PO (11:05)
[2022-12-02 11:31] LABS: Appearance, Urine Clear (Clear); Bilirubin, Urine Neg (Neg); Blood, Urine 4+ (Neg); Color, Urine Yellow (P-Yellow); Glucose Qualitative, Urine Neg (Neg); Ketones, Urine Neg (Neg); Leukocyte Esterase, Urine 3+ (Neg); Nitrite, Urine Neg (Neg); Protein, Urine Neg (Neg); Specific Gravity, Urine 1.015 (1.003-1.022); Urobilinogen, Urine NORM (Normal)
[2022-12-02 11:43] LABS: Bacteria Few /hpf; Squamous Epithelial Cells Not Seen /hpf (Few); Yeast/Fungi Urine Few /hpf
[2022-12-02 11:44] LABS: White Blood Cells, Urine 25-50 /hpf (0-5)
[2022-12-02 13:00] VITALS: BP 117/92
--- NOTE | 2022-12-02 13:51 | NUR ---
Spoke with Dr Sam and discussed case. Pt and family may benefit from goals of care conversation. Prognosis has been discussed with family. Pt still in the ED during time of visit. Pt resting on gurney upon arrival. Pt is confused and anxious. Pt currently on BIPAP and stating wanting it off. Pt's daughter in law and spouse at bedside. Spouse and daughter in law confirm that Pt's son Abelino is decision maker. Daughter in law Andres calls son Abelino on cell phone and places him on speaker. Provided update and discussed prognosis. Engaged in therapeutic conversation regarding goals of care including the option for comfort care and hospice. Offered thrapeutic listening and answered questions. Son Abelino, spouse and daughter in law are in agreement to move forward with comfort care and hospice. Educated family on comfort care and hospice philosophy with V/U made by family. Discussed hospice agencies to choose from. Daughter in law reports family was originally set up to meet with [facility] but [facility] can not meet with Pt until Thursday. Family agreeable to go with [facility] if they are available sooner. Called Skylar from [facility] and she confirms availability for Thursday. Called and spoke with Christina from [facility]. Christina reports [facility] can admit Pt tomorrow. Per request from Christina, Dr Sam signs hospice orders and this RN faxed to [facility]. Palliative Care will remain available for symptom management and supportive visits.
--- NOTE | 2022-12-02 14:06 | NUR ---
Late Entry from previous note. Spoke with Dr Sam. Dr Sam will admit Pt under comfort care and will place comfort care order and comfort medications.
--- NOTE | 2022-12-02 16:35 | NUR ---
ADMIT NOTE REPORT RECEIVED FROM SIMIN HODGES. PT ARRIVED, WITH FAMILY, FROM ER VIA GURNEY. PT ALERT. TRANSFERED TO NEW BED WITH SLIDDER SHEET AND 5 ASSIST. PT TOLERATED WELL. 4L N/C. FAMILY SPENDING THE NIGHT. RECLINER PROVIDED TO DAUGHTER IN-LAW. CONTINUE POC,
--- NOTE | 2022-12-03 05:21 | NUR ---
SHIFT SUMMARY; NO ACUTE CHANGES OVERNIGHT. THE PT IS A COMFORT CARE PT. THE PT HAS BEEN SOB THIS SHIFT. MEDICATED A FEW TIMES W/ ROXANOL AND WITH MORPHINE INHALATION. THE PT RESPONDS WELL TO MORPHINE AND ROXANOL. THE PT IS AXO X1, HARD TO UNDERSTAND R/T MUMBLING. THE PT IS VERY ANXIOUS THIS AM, JUST MEDICATED WITH ATIVAN. THE PT IS ON 4L NC THIS SHIFT FOR COMFORT. A HERNÁNDEZ IS IN PLACE, IT IS PATENT AND DRAINING TO GRAVITY. THE PT DENIES ANY PAIN. DAUGHTER IN LAW IS AT BEDSIDE AND ACCORDING TO HER THE PT IS D/C ING TODAY HOME ON HOSPICE. CURRENTLY THE PT IS RESTING IN BED WITH THE BED IN THE LOWEST POSITION AND THE CALL LIGHT AT BEDSIDE.
[2022-12-03] MEDS ORDERED: MORP20L SL (11:32)
[2022-12-03] MEDS ORDERED: Ativan1 MG PO (11:33)
[2022-12-03] MEDS ORDERED: ATROPINE S0.1 MG/1 M SL (11:34)
--- NOTE | 2022-12-03 12:41 | NUR ---
DISCHARGE HOSPICE PT DISCHARGED VIA [facility] HOME WITH HOSPICE. PT UNRESPONSIVE DURING TRANSFER TO THE [facility]. DID NOT MEDICATE PRIOR D/T PT BEING SOMULENT DURING CARE. FAMILY PRESENT AND AGREEABLE. CONTINUE POC.
--- NOTE | 2022-12-03 13:49 | NUR ---
Met with family member at bedside. Vazquez will be heading home this afternoon around 12 to go home with [facility]. Vazquez slept through the visit. Emotional support provided to family.
== END 2022-12-03 12:32 | disposition hospice, home (50) ==
LOC: ER 10:09 → MEDS 10:10
PROVIDERS: Emergency Medicine; ADMIT Internal Medicine
DX: J96.22 Acute and chronic respiratory failure with hypercapnia (principal); G92.8 Other toxic encephalopathy; I48.20 Chronic atrial fibrillation, unspecified; R73.9 Hyperglycemia, unspecified; K21.9 Gastro-esophageal reflux disease without esophagitis; E78.5 Hyperlipidemia, unspecified; D50.9 Iron deficiency anemia, unspecified; Z51.5 Encounter for palliative care; J44.9 Chronic obstructive pulmonary disease, unspecified; F03.90 Unspecified dementia, unspecified severity, without behavioral disturbance, psychotic disturbance, mood disturbance, and anxiety; I10 Essential (primary) hypertension; G47.33 Obstructive sleep apnea (adult) (pediatric)
CPT/HCPCS: 36415; 36600; 51702; 71045; 80053; 81001; 82803; 85025; 87086; 93005; 93010; 94640; 94644; 94660; 94664; 96374; 99285-25; A9270; G0378; J2270; J2930